=== PATIENT | male | born 1985 | race Caucasian/White ===

== ENCOUNTER → 2020-11-20 15:00 | Outpatient (BNVA) | payer MEDICAID, SELFPAY | PROVIDERS: Visit Provider Counselor Professional | DX: F25.0 Schizoaffective disorder, bipolar type (principal) | CPT/HCPCS: 90832 ==

== ENCOUNTER → 2020-11-29 13:50 | Outpatient (BNVA) | payer MEDICAID, SELFPAY | PROVIDERS: Visit Provider Counselor Professional | DX: F25.0 Schizoaffective disorder, bipolar type (principal) | CPT/HCPCS: 90832 ==

== ENCOUNTER → 2020-12-11 00:01 | Outpatient (BNVA) | payer MEDICAID, SELFPAY | PROVIDERS: Visit Provider Psychiatry & Neurology Psychiatry | DX: Z03.89 Encounter for observation for other suspected diseases and conditions ruled out (principal); F25.0 Schizoaffective disorder, bipolar type; F41.9 Anxiety disorder, unspecified; G25.89 Other specified extrapyramidal and movement disorders; T50.905A Adverse effect of unspecified drugs, medicaments and biological substances, initial encounter; Z79.899 Other long term (current) drug therapy | CPT/HCPCS: 80053; 80061; 83036; 84443 ==

== ENCOUNTER → 2020-12-13 13:28 | Outpatient (BNVA) | payer MEDICAID, SELFPAY | PROVIDERS: Visit Provider Counselor Professional | DX: F25.0 Schizoaffective disorder, bipolar type (principal) | CPT/HCPCS: 90832 ==

== ENCOUNTER → 2020-12-27 13:47 | Outpatient (BNVA) | payer MEDICAID, SELFPAY | PROVIDERS: Visit Provider Counselor Professional | DX: F25.0 Schizoaffective disorder, bipolar type (principal) | CPT/HCPCS: 90832 ==

== ENCOUNTER → 2021-01-13 10:48 | Outpatient (BNVA) | payer MEDICAID, SELFPAY | PROVIDERS: Visit Provider Counselor Professional | DX: F25.0 Schizoaffective disorder, bipolar type (principal) | CPT/HCPCS: 90832 ==

== ENCOUNTER → 2021-01-31 14:46 | Outpatient (BNVA) | payer MEDICAID, SELFPAY | PROVIDERS: PCP Family Medicine; Visit Provider Counselor Professional | DX: F25.0 Schizoaffective disorder, bipolar type (principal) | CPT/HCPCS: 90832 ==

== ENCOUNTER → 2021-02-20 14:43 | Outpatient (BNVA) | payer MEDICAID, SELFPAY | PROVIDERS: PCP Family Medicine; Visit Provider Counselor Professional | DX: F25.0 Schizoaffective disorder, bipolar type (principal) | CPT/HCPCS: 90834; 90832 ==

== ENCOUNTER → 2021-03-06 14:49 | Outpatient (BNVA) | payer MEDICAID, SELFPAY | PROVIDERS: PCP Family Medicine; Visit Provider Counselor Professional | DX: F25.0 Schizoaffective disorder, bipolar type (principal) | CPT/HCPCS: 90832 ==

== ENCOUNTER → 2021-03-28 14:54 | Outpatient (BNVA) | payer MEDICAID, SELFPAY | PROVIDERS: PCP Family Medicine; Visit Provider Counselor Professional | DX: F25.0 Schizoaffective disorder, bipolar type (principal) | CPT/HCPCS: 90832 ==

== ENCOUNTER → 2021-04-25 14:47 | Outpatient (BNVA) | payer MEDICAID, SELFPAY | PROVIDERS: PCP Family Medicine; Visit Provider Counselor Professional | DX: F25.0 Schizoaffective disorder, bipolar type (principal) | CPT/HCPCS: 90832 ==

== ENCOUNTER → 2021-05-22 12:47 | Outpatient (BNVA) | payer MEDICAID, SELFPAY | PROVIDERS: PCP Family Medicine; Visit Provider Counselor Professional | DX: F25.0 Schizoaffective disorder, bipolar type (principal) | CPT/HCPCS: 90832 ==

== ENCOUNTER → 2021-05-26 13:50 | Outpatient (BNVA) | payer MEDICAID, SELFPAY | PROVIDERS: PCP Family Medicine; Visit Provider Family Medicine | DX: K21.9 Gastro-esophageal reflux disease without esophagitis (principal); I10 Essential (primary) hypertension; R73.03 Prediabetes; Z68.34 Body mass index [BMI] 34.0-34.9, adult | CPT/HCPCS: 80048; 83036 ==

== ENCOUNTER → 2021-07-03 14:42 | Outpatient (BNVA) | payer MEDICAID, SELFPAY | PROVIDERS: PCP Family Medicine; Visit Provider Counselor Professional | DX: F25.0 Schizoaffective disorder, bipolar type (principal) | CPT/HCPCS: 90832 ==

== ENCOUNTER → 2021-08-07 13:46 | Outpatient (BNVA) | payer MEDICAID, SELFPAY | PROVIDERS: PCP Family Medicine; Visit Provider Counselor Professional | DX: F25.9 Schizoaffective disorder, unspecified (principal) | CPT/HCPCS: 90832 ==

== ENCOUNTER → 2021-08-21 15:33 | Outpatient (BNVA) | payer MEDICAID, SELFPAY | PROVIDERS: PCP Family Medicine; Visit Provider Counselor Professional | DX: F25.9 Schizoaffective disorder, unspecified (principal) | CPT/HCPCS: 90832 ==

== ENCOUNTER → 2021-10-23 15:09 | Outpatient (BNVA) | payer MEDICAID, OTHER, SELFPAY | PROVIDERS: PCP Family Medicine; Visit Provider Psychiatry & Neurology Neurology | DX: Z79.899 Other long term (current) drug therapy (principal) | CPT/HCPCS: 80061; 83036; 83721 ==

== ENCOUNTER → 2021-11-24 13:42 | Outpatient (BNVA) | payer MEDICAID, SELFPAY ==
[2021-10-30 16:12] VITALS: BP 112/71; BMI 24.8
== END ==
PROVIDERS: PCP Family Medicine; Visit Provider Family Medicine
DX: E11.9 Type 2 diabetes mellitus without complications (principal); I10 Essential (primary) hypertension; E87.1 Hypo-osmolality and hyponatremia; H53.8 Other visual disturbances
CPT/HCPCS: 80053; 83036; 85025

== ENCOUNTER → 2022-01-14 09:50 | Outpatient (BNVA) | payer MEDICAID, SELFPAY ==
[2021-10-30 16:12] VITALS: BP 112/71; BMI 24.8
== END ==
PROVIDERS: PCP Family Medicine; Visit Provider Nurse Practitioner Family
DX: M79.672 Pain in left foot (principal)
CPT/HCPCS: 73630

== ENCOUNTER → 2022-03-11 13:47 | Outpatient (BNVA) | payer MEDICAID, SELFPAY ==
[2021-10-30 16:12] VITALS: BP 112/71; BMI 24.8
== END ==
PROVIDERS: PCP Family Medicine; Visit Provider Family Medicine
DX: E11.9 Type 2 diabetes mellitus without complications (principal); I10 Essential (primary) hypertension; K21.9 Gastro-esophageal reflux disease without esophagitis; J30.2 Other seasonal allergic rhinitis; R74.8 Abnormal levels of other serum enzymes
CPT/HCPCS: 80053; 83036

== ENCOUNTER → 2022-07-06 16:21 | Outpatient (BNVA) | payer MEDICAID, SELFPAY ==
[2021-10-30 16:12] VITALS: BP 112/71; BMI 24.8
== END ==
PROVIDERS: PCP Family Medicine; Visit Provider Family Medicine
DX: E11.9 Type 2 diabetes mellitus without complications (principal); I10 Essential (primary) hypertension
CPT/HCPCS: 80053; 83036

== ENCOUNTER → 2022-07-08 09:43 | Outpatient (BNVA) | payer MEDICAID, SELFPAY ==
[2021-10-30 16:12] VITALS: BP 112/71; BMI 24.8
== END ==
PROVIDERS: PCP Family Medicine; Visit Provider Nurse Practitioner Family
DX: R43.0 Anosmia (principal); Z20.822 Contact with and (suspected) exposure to COVID-19
CPT/HCPCS: 87426

== ENCOUNTER → 2022-08-24 16:52 | Outpatient (BNVA) | payer MEDICAID, SELFPAY ==
[2021-10-30 16:12] VITALS: BP 112/71; BMI 24.8
== END ==
PROVIDERS: PCP Family Medicine; Visit Provider Nurse Practitioner Family
DX: K92.1 Melena (principal)
CPT/HCPCS: 85018

== ENCOUNTER → 2022-12-16 16:33 | Outpatient (BNVA) | payer MEDICAID, SELFPAY ==
[2021-10-30 16:12] VITALS: BP 112/71; BMI 24.8
== END ==
PROVIDERS: PCP Family Medicine; Visit Provider Psychiatry & Neurology Psychiatry
DX: F41.9 Anxiety disorder, unspecified (principal); F20.9 Schizophrenia, unspecified
CPT/HCPCS: 80061; 83036

== ENCOUNTER → 2023-03-30 11:11 | Outpatient (BNVA) | payer MEDICAID, SELFPAY ==
[2022-12-24 16:38] VITALS: BP 130/84; BMI 30.8
== END ==
PROVIDERS: PCP Family Medicine; Visit Provider Family Medicine
DX: E11.9 Type 2 diabetes mellitus without complications (principal); J30.2 Other seasonal allergic rhinitis; I10 Essential (primary) hypertension; K21.9 Gastro-esophageal reflux disease without esophagitis; G89.29 Other chronic pain; R74.8 Abnormal levels of other serum enzymes; K27.9 Peptic ulcer, site unspecified, unspecified as acute or chronic, without hemorrhage or perforation; E78.2 Mixed hyperlipidemia; G89.4 Chronic pain syndrome
CPT/HCPCS: 80053; 83036

== ENCOUNTER 2024-01-25 18:47 | Emergency (ER) | payer OTHER, SELFPAY ==
[2022-12-24 16:38] VITALS: BP 130/84; BMI 30.8
[2024-01-25 19:46] VITALS: BP 119/76; PULSE 104; RESP 17; TEMP 36.7; O2SAT 96; BMI 27.3
--- NOTE | 2024-01-25 20:02 | ECG_ITS ---
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 Measurements Intervals [place] Rate: 96 P: 56 DC: 170 QRS: 49 QRSD: 90 T: 24 QT: 347 QTc: 441 Interpretive Statements SINUS RHYTHM POSSIBLE LEFT ATRIAL ENLARGEMENT [-0.1mV P-WAVE IN V1/V2] No previous ECG available for comparison Electronically Signed On 01-27-2024 21:16:09 TOLL BRIDGE ATTENDANT by Holger Crump M.D. [email or web address]
--- NOTE | 2024-01-25 20:09 | ED.C_ITS ---
HPI - Psych 2 General: Chief Complaint: Psychiatric Symptoms Stated Complaint: just wants to talk to a nurse about whats going on Time Seen by Provider: 01/25/24 19:47 Source: patient Mode of arrival: ambulatory Limitations: no limitations History of Present Illness: 38-year-old male states that he has a hi story depression states he has been having increased depression and feeling of hopelessness states he has not been taking his meds last 2 weeks and is now having suicidal thoughts he states he has a plan to kill himself by hanging himself and wants to get help. Associated symptoms: Reports depression and suicidal ideation Related Data Previous Rx's Medication Instructions Recorded blood-glucose meter #1 ea 10/28/21 ibuprofen 600 mg tablet 600 mg PO Q8H PRN pain #60 tabs 11/21/22 metoprolol succinate 25 mg 25 mg PO DAILY 90 days #90 tabs 03/30/23 tablet,extended release 24 hr pen needle, diabetic 32 gauge x #100 ea 03/30/23 (TechLITE Pen Needle) haloperidol 5 mg tablet 5 mg PO BID 30 days #60 tabs 04/20/23 hydroxyzine HCl 50 mg tablet 50 mg PO TID PRN anxiety or sleep 04/20/23 30 days #90 tabs mirtazapine 30 mg tablet 30 mg PO .qhs 30 days #30 tabs 04/20/23 fluoxetine 20 mg capsule 20 mg PO DAILY 30 days #30 caps 05/03/23 fluoxetine 40 mg capsule 40 mg PO DAILY 30 days #30 caps 05/03/23 blood sugar diagnostic (Blood #50 ea 06/08/23 Glucose Test strips) lancets 30 gauge (OneTouch Delica #100 ea 07/13/23 Plus Lancet) buspirone 30 mg tablet 30 mg PO BID anxiety 30 days #60 08/10/23 tabs atorvastatin 20 mg tablet (Lipitor) 20 mg PO DAILY cholesterol #90 tabs 09/22/23 blood sugar diagnostic #50 ea 09/22/23 cetirizine 10 mg tablet (All Day 10 mg PO DAILY 90 days #90 tabs 09/22/23 Allergy (cetirizine)) glipizide 10 mg tablet, extended 10 mg PO BID 90 days #180 tabs 09/22/23 release 24 hr lisinopril 10 mg tablet 10 mg PO DAILY diabetic, renal 09/22/23 function #90 tabs omeprazole 40 mg capsule,delayed 40 mg PO BID 90 days #180 caps 09/22/23 release tizanidine 2 mg tablet 2 mg PO TID PRN muscle spasticity 09/22/23 #60 tabs Allergies Allergy/AdvReac Type Severity Reaction Status Date / Time No Known Allergies Allergy Verified 01/25/24 19:52 Review of Systems 2 Const: Denies: fever(s), chills, body aches or change in appetite ENMT: Denies: throat pain or dental pain Card: Denies: chest pain Resp: Denies: dyspnea GI: Denies: abdominal pain, nausea, vomiting or diarrhea Musc: Denies: neck pain or back pain Skin/Breast: Denies: rash Neuro: Denies: headache(s) Psych: Reports: depression and suicidal ideation PFSH ED 2 PFSH: Medical History Hyperlipidemia Smoking Diabetes Metformin discontinued due to diarrhea. Psychiatric care Released from [facility] Substance abuse Intellectual disability Anxiety Psychiatric care Family History Other Diabetes Social History (Updated 09/23/23 @ 12:11 by Kimberly Garcia LPN) Smoking and tobacco/nicotine status: current every day tobacco/nicotine user cigarettes Packs smoked per day: 1 Years cigarettes smoked: 18 and smokeless tobacco Smokeless tobacco user: chewing tobacco Smokeless tobacco details: a can last about a week Quit status (tobacco/nicotine): considering quitting Second hand smoke exposure: Yes Alcohol intake: never Substance/Drug Use: never Adopted: No Caregiver/support person: Yes Lives independently: Yes Household members: family and none Housing: Apartment Marital status: Legally Number of children: 0 Number of grandchildren: 0 Highest education level completed: 9th Grade Current occupational status: unemployed Pets and animals: No Leisure activites: sports, exercise, music, hunting, fishing and other Leisure activities details: helps step dad around the house and watch movies Sexually active: No Do you think of yourself as: Straight/Heterosexual Current gender identity: Male Tiffanie/Yarsani: Pentecostalism Special tiffanie needs: No Agree to transfusion: Yes Physical Exam 2 Const: COMMON NORMALS: no acute distress, patient oriented x3 and healthy appearing HENMT: COMMON NORMALS: normocephalic and atraumatic HEAD & SCALP: n ormocephalic and atraumatic Neck/C-Spine: COMMON NORMALS: full ROM and supple Chest: COMMONS NORMALS: normal inspection of the chest Resp: COMMON NORMALS: normal respiratory effort Cardio: COMMON NORMALS: regular rate and regular rhythm RATE: regular rate RHYTHM: regular rhythm Extremity: COMMON NORMALS: normal to inspection and full ROM Neuro: COMMON NORMALS: patient oriented x3, moves all extremities and no focal motor deficits Psych: COMMON NORMALS: mental status grossly normal, Normal thought process present and cooperative MOOD & AFFECT: Yes depressed mood THOUGHT PROCESS: Normal thought process present THOUGHT CONTENT: Yes Suicidality present Skin: COMMON NORMALS: no rashes or lesions noted and no wounds GENERAL SKIN EXAM: no rashes or lesions noted Course 2 Vital Signs: Vital signs: Vital Signs Temperature 98.0 F 01/25/24 19:46 Pulse Rate 79 01/26/24 04:00 Respiratory Rate 15 01/26/24 04:00 Blood Pressure 118/72 01/26/24 04:00 Pulse Oximetry 96 01/26/24 04:00 Oxygen Delivery Me thod Room Air 01/25/24 19:46 MDM - Psych Medical Decision Making Patient presents here with suicidal ideation he is placed on a 96-hour hold he is medically cleared will transfer due to bed availability. Medical Records I reviewed the patient's medical records. Lab Data I reviewed the patient's lab results. 01/25/24 20:37 01/25/24 20:37 Laboratory Results WBC 9.86 10^3/uL (3.29-11.43) 01/25/24 20:37 RBC 4.41 10^6/uL (3.85-5.65) 01/25/24 20:37 Hgb 13.10 g/dL (11.27-16.99) 01/25/24 20:37 Hct 40.1 % (37-53) 01/25/24 20:37 MCV 90.9 fl (82-101) 01/25/24 20:37 MCH 29.7 pg (27-33) 01/25/24 20:37 MCHC 32.7 g/dL (30-55) 01/25/24 20:37 RDW 13.4 % (12.1-15.1) 01/25/24 20:37 Plt Count 227 10^3/cmm (157-399) 01/25/24 20:37 MPV 10.0 fL (7.4-10.4) 01/25/24 20:37 Neut % (Auto) 57.3 % 01/25/24 20:37 Lymph % (Auto) 31.3 % 01/25/24 20:37 [place] % (Auto) 8.7 % 01/25/24 20:37 Eos % (Auto) 1.8 % 01/25/24 20:37 Baso % (Auto) 0.5 % 01/25/24 20:37 Neut # (Auto) 5.64 10^3/uL (1.8-7.7) 01/25/24 20:37 Lymph # (Auto) 3.1 10^3/uL (0.8-4.8) 01/25/24 20:37 [place] # (Auto) 0.9 10^3/uL (0.2-0.9) 01/25/24 20:37 Eos # (Auto) 0.2 10^3/uL (0.0-0.8) 01/25/24 20:37 Baso # (Auto) 0.1 10^3/uL (0.0-0.1) 01/25/24 20:37 Nucleated RBC % (auto) 0 % 01/25/24 20:37 Nucleated RBCs # 0.0 /100WBC 01/25/24 20:37 Sodium 135 mmol/L (136-145) L 01/25/24 20:37 Potassium 3.9 mmol/L (3.5-5.1) 01/25/24 20:37 Chloride 99 mmol/L (98-107) 01/25/24 20:37 Carbon Dioxide 26 mmol/L (22-29) 01/25/24 20:37 Anion Gap 13.9 (5-19) 01/25/24 20:37 BUN 12 mg/dL (6-20) 01/25/24 20:37 Creatinine 0.8 mg/dL (0.7-1.2) 01/25/24 20:37 GFR Calculation 108.8 mL/min (90-130) 01/25/24 20:37 Glucose 136 mg/dL (65-115) H 01/25/24 20:37 POC Glucose 162 mg/dL (70-110) H 01/25/24 21:54 Calculated Osmolality 282 mOsm/kg (285-295) L 01/25/24 20:37 Calcium 8.7 mg/dL (8.5-10.5) 01/25/24 20:37 Total Bilirubin 0.3 mg/dL (0.15-1.2) 01/25/24 20:37 AST 24 U/L (0-40) 01/25/24 20:37 ALT 36 U/L (0-41) 01/25/24 20:37 Alkaline Phosphatase 98 U/L (40-130) 01/25/24 20:37 Total Protein 6.8 g/dL (6.6-8.7) 01/25/24 20:37 Albumin 4.2 g/dL (3.5-5.2) 01/25/24 20:37 Globulin 2.6 g/dL (1.3-4.6) 01/25/24 20:37 TSH 0.82 uIU/mL (0.27-4.20) 01/25/24 20:37 Urine Color Dark yellow (Yellow) A 01/26/24 05:16 Urine Appearance Clear (CLEAR) 01/26/24 05:16 Urine pH 5.0 (5-7) 01/26/24 05:16 Ur Specific [place] 1.014 (1.005-1.030) 01/26/24 05:16 Urine Protein Negative (Negative) 01/26/24 05:16 Urine Glucose (UA) Negative (Normal) 01/26/24 05:16 Urine Ketones Negative (Negative) 01/26/24 05:16 Urine Blood Negative (Negative) 01/26/24 05:16 Urine Nitrate Negative (Negative) 01/26/24 05:16 Urine Bilirubin Negative (Negative) 01/26/24 05:16 Urine Urobilinogen 1.0 mg/dL (Negative) 01/26/24 05:16 Ur Leukocyte Esterase Negative (Negative) 01/26/24 05:16 Urine RBC 0-2 /hpf (0-2) 01/26/24 05:16 Urine WBC 0-5 /hpf (0-5) 01/26/24 05:16 Ur Squamous Epith Cells 0-5 /hpf (0-5) 01/26/24 05:16 Amorphous Sediment Not Reportable 01/26/24 05:16 Urine Bacteria None seen /hpf (NONE) 01/26/24 05:16 Hyaline Casts 0-4 /lpf H 01/26/24 05:16 Salicylates < 0.3 mg/dL (3-10) L 01/25/24 20:37 Urine Opiates Screen Negative ng/mL (Negative) 01/25/24 20:25 Acetaminophen < 5.0 ug/mL (10-30) L 01/25/24 20:37 Ur Barbiturates Screen Negative ng/mL (Negative) 01/25/24 20:25 Ur Phencyclidine Scrn Negative ng/mL (Negative) 01/25/24 20:25 Ur Amphetamines Screen Negative ng/mL (Negative) 01/25/24 20:25 U Benzodiazepines Scrn Negative ng/mL (Negative) 01/25/24 20:25 Urine Cocaine Screen Negative ng/mL (Negative) 01/25/24 20:25 U Marijuana (THC) Screen Positive ng/mL (Negative) H 01/25/24 20:25 Ethyl Alcohol < 10 mg/dL (0-10) 01/25/24 20:37 Coronavirus (PCR) Negative (Negative) 01/25/24 20:25 Influenza A (PCR) Negative (Negative) 01/25/24 20:25 Influenza Type B (PCR) Negative (Negative) 01/25/24 20:25 RSV (PCR) Negative (Negative) 01/25/24 20:25 No radiology studies performed this visit EKG Data EKG 1: I personally reviewed and interpreted this EKG as follows: EKG interpretation date: 01/25/24 EKG interpretation time: 20:02 Interpretation: nsr hr [address] elevation qrs 90 qtc 401 Discharge Plan Discharge Patient Disposition: Xfer Psychiatric Hosp Clinical Impression: Suicidal ideation Condition: Stable Referrals: Kathy Clemons MD [Primary Care Provider] - Coding Level of Care Code ED Glass Curvature Gauger for Chg Qiana
[2024-01-25 20:41] LABS: Amphetamines Screen Urine Negative (Negative); Barbiturates Screen Urine Negative (Negative); Benzodiazepines Screen Urine Negative (Negative); Cocaine Screen Urine Negative (Negative); Opiate Screen Urine Negative (Negative); PCP Screen Urine Negative (Negative); THC Screen Urine Positive (Negative)
[2024-01-25 20:44] LABS: Basophils # 0.1 10^3/uL (0.0-0.1); Basophils % 0.5 %; Eosinophils # 0.2 10^3/uL (0.0-0.8); Eosinophils % 1.8 %; Hematocrit 40.1 % (37-53); Lymphocytes # 3.1 10^3/uL (0.8-4.8); Lymphocytes % 31.3 %; Mean Corpuscular HGB Conc 32.7 g/dL (30-55); Mean Corpuscular Hemoglobin 29.7 pg (27-33); Mean Corpuscular Volume 90.9 fl (82-101); Monocytes # 0.9 10^3/uL (0.2-0.9); Monocytes % 8.7 %; Neutrophils # 5.64 10^3/uL (1.8-7.7); Neutrophils % 57.3 %; Nucleated Red Blood Cells % 0 %; Platelet Count 227 10^3/cmm (157-399); Red Blood Count 4.41 10^6/uL (3.85-5.65); Red Cell Distribution Width 13.4 % (12.1-15.1); White Blood Count 9.86 10^3/uL (3.29-11.43)
[2024-01-25 21:01] LABS: Alanine Aminotransferase 36 U/L (0-41); Albumin Level 4.2 g/dL (3.5-5.2); Alkaline Phosphatase 98 U/L (40-130); Anion Gap 13.9 (5-19); Aspartate Amino Transferase 24 U/L (0-40); Blood Urea Nitrogen 12 mg/dL (6-20); Calcium 8.7 mg/dL (8.5-10.5); Carbon Dioxide 26 mmol/L (22-29); Chloride 99 mmol/L (98-107); Creatinine Clr Calc Pharmacy 119.1932; Globulin 2.6 g/dL (1.3-4.6); Glomerular Filtration Rate 108.8 mL/min (90-130); Glucose 136 mg/dL (65-115); Osmolality Calculated 282 mOsm/kg (285-295); Potassium 3.9 mmol/L (3.5-5.1); Sodium 135 mmol/L (136-145); Total Bilirubin 0.3 mg/dL (0.15-1.2); Total Protein 6.8 g/dL (6.6-8.7)
[2024-01-25 21:02] LABS: Acetaminophen < 5.0 ug/mL (10-30); Alcohol Level < 10 mg/dL (0-10); Salicylate < 0.3 mg/dL (3-10)
--- NOTE | 2024-01-25 21:03 | PC.NURSE ---
[facility] Pt served with copy of [facility] by this RN and security, pt requesting to be transferred to a [facility] facility I want special education curriculum specialist placement . Physician notified. Pt also stated that he is diabetic and has not addressed with blood sugar in months due to lack of insurance, physician notified of that also.
[2024-01-25 21:08] LABS: Covid PCR NEGATIVE (Negative); Influenza A NEGATIVE (Negative); Influenza B NEGATIVE (Negative); Respiratory Syncytial Virus Ce NEGATIVE (Negative)
[2024-01-25 21:12] LABS: Thyroid Stimulating Hormone 0.82 uIU/mL (0.27-4.20)
[2024-01-25 21:56] LABS: Glucose Point of Care 162 mg/dL (70-110)
--- NOTE | 2024-01-25 22:10 | PC.NURSE ---
pt requested to speak to his mother. approved phone call. Pt was able to speak to mom on charge nurse phone with nurse present.
[2024-01-26] VITALS: BP 124/79; PULSE 98; RESP 18; O2SAT 97
[2024-01-26 04:00] VITALS: BP 118/72; PULSE 79; RESP 15; O2SAT 96
[2024-01-26 05:22] LABS: Bilirubin Urine Negative (Negative); Blood Urine Negative (Negative); Glucose Urine UA Negative (Normal); Ketones Urine Negative (Negative); Leukocyte Esterase Urine Negative (Negative); Nitrate Urine Negative (Negative); Protein Urine Negative (Negative); Specific Gravity, Urine 1.014 (1.005-1.030); Urine Appearance Clear (CLEAR)
--- NOTE | 2024-01-26 05:26 | PC.NURSE ---
Nurse called [facility] to check on bed availability. [place] stated they did and to fax over pt information. fax sent at 05:25.
[2024-01-26 05:27] LABS: Add Urine Microscopic? YES; Bacteria Urine None Seen /hpf; Hyaline Casts Urine 0-4 /lpf; RBC Urine 0-2 /hpf (0-2); Squamous Epithelial Cell Urine 0-5 /hpf (0-5); WBC Urine 0-5 /hpf (0-5)
[2024-01-26 05:42] LABS: Urine Color Dark Yellow (Yellow)
--- NOTE | 2024-01-26 06:32 | DCPLANNER ---
THE CHART HAS BEEN FAXED TO THE FOLLOWING PLACES. [facility], [facility]
--- NOTE | 2024-01-26 09:19 | PC.PHAR ---
patient uses anni lemon as doctor in [facility], they are to fax me the list
--- NOTE | 2024-01-26 14:00 | PC.NURSE ---
report given to EMS @1400, no further questions.
[2024-01-26 14:10] VITALS: BP 119/79; PULSE 77; O2SAT 97
== END 2024-01-26 14:14 ==
PROVIDERS: Emergency Medicine; Emergency Provider Emergency Medicine; PCP Family Medicine
DX: R45.851 Suicidal ideations (principal); Z11.52 Encounter for screening for COVID-19; F17.220 Nicotine dependence, chewing tobacco, uncomplicated; E11.9 Type 2 diabetes mellitus without complications; E78.5 Hyperlipidemia, unspecified
CPT/HCPCS: 0241U; 36415; 36416; 80053; 80306; 80307; 81001; 82962; 84443; 85025; 93005; 99285

== ENCOUNTER 2024-02-16 19:40 | Emergency (ER) | payer OTHER, SELFPAY ==
[2022-12-24 16:38] VITALS: BP 130/84; BMI 30.8
[2024-02-16 19:46] VITALS: BP 122/77; PULSE 110; RESP 20; TEMP 36.6; O2SAT 97; BMI 27.9
--- NOTE | 2024-02-16 19:55 | ED.C_ITS ---
HPI - Psych 2 General: Chief Complaint: Psychiatric Symptoms Stated Complaint: Meds not right/MHE Time Seen by Provider: 02/16/24 19:53 History of Present Illness: 38-year-old man with history of depressi on presents emergency room with suicidal thoughts. He says he thinks he needs to have his medications adjusted because recently he has developed suicidal ideations. No specific plan at this point. Related Data Previous Rx's Medication Instructions Recorded blood-glucose meter #1 ea 10/28/21 ibuprofen 600 mg tablet 600 mg PO Q8H PRN pain #60 tabs 11/21/22 metoprolol succinate 25 mg 25 mg PO DAILY 90 days #90 tabs 03/30/23 tablet,extended release 24 hr pen needle, diabetic 32 gauge x #100 ea 03/30/23 (TechLITE Pen Needle) haloperidol 5 mg tablet 5 mg PO BID 30 days #60 tabs 04/20/23 hydroxyzine HCl 50 mg tablet 50 mg PO TID PRN anxiety or sleep 04/20/23 30 days #90 tabs mirtazapine 30 mg tablet 30 mg PO .qhs 30 days #30 tabs 04/20/23 fluoxetine 20 mg capsule 20 mg PO DAILY 30 days #30 caps 05/03/23 fluoxetine 40 mg capsule 40 mg PO DAILY 30 days #30 caps 05/03/23 blood sugar diagnostic (Blood #50 ea 06/08/23 Glucose Test strips) lancets 30 gauge (OneTouch Delica #100 ea 07/13/23 Plus Lancet) buspirone 30 mg tablet 30 mg PO BID anxiety 30 days #60 08/10/23 tabs atorvastatin 20 mg tablet (Lipitor) 20 mg PO DAILY cholesterol #90 tabs 09/22/23 blood sugar diagnostic #50 ea 09/22/23 cetirizine 10 mg tablet (All Day 10 mg PO DAILY 90 days #90 tabs 09/22/23 Allergy (cetirizine)) glipizide 10 mg tablet, extended 10 mg PO BID 90 days #180 tabs 09/22/23 release 24 hr lisinopril 10 mg tablet 10 mg PO DAILY diabetic, renal 09/22/23 function #90 tabs omeprazole 40 mg capsule,delayed 40 mg PO BID 90 days #180 caps 09/22/23 release tizanidine 2 mg tablet 2 mg PO TID PRN muscle spasticity 09/22/23 #60 tabs Allergies Allergy/AdvReac Type Severity Reaction Status Date / Time No Known Allergies Allergy Verified 01/25/24 19:52 Review of Systems 2 Narrative: Constitutional symptoms: Negative except as documented in HPI. Skin symptoms: Negative except as documented in HPI. Eye symptoms: Negative except as documented in HPI. ENMT symptoms: Negative except as documented in HPI. Respiratory symptoms: Negative except as documented in HPI. Cardiovascular symptoms: Negative except as documented in HPI. Gastrointestinal symptoms: Negative except as documented in HPI. Genitourinary symptoms: Negative except as documented in HPI. Musculoskeletal symptoms: Negative except as documented in HPI. Neurologic symptoms: Negative except as documented in HPI. Psychiatric symptoms: Negative except as documented in HPI. Endocrine symptoms: Negative except as documented in HPI. PFSH ED 2 PFSH: Medical History Hyperlipidemia Smoking Diabetes Metformin discontinued due to diarrhea. Psychiatric care Released from longterm Substance abuse Intellectual disability Anxiety Psychiatric care Family History Other Diabetes Social History (Updated 09/23/23 @ 12:11 by Kimberly Garcia LPN) Smoking and tobacco/nicotine status: current every day tobacco/nicotine user cigarettes Packs smoked per day: 1 Years cigarettes smoked: 18 and smokeless tobacco Smokeless tobacco user: chewing tobacco Smokeless tobacco details: a can last about a week Quit status (tobacco/nicotine): considering quitting Second hand smoke exposure: Yes Alcohol intake: never Substance/Drug Use: never Adopted: No Caregiver/support person: Yes Lives independently: Yes Household members: family and none Housing: Apartment Marital status: Legally Number of children: 0 Number of grandchildren: 0 Highest education level completed: 9th Grade Current occupational status: unemployed Pets and animals: No Leisure activites: sports, exercise, music, hunting, fishing and other Leisure activities details: helps step dad around the house and watch movies Sexually active: No Do you think of yourself as: Straight/Heterosexual Current gender identity: Male Tiffanie/Tenriism: Gnosticism Special tiffanie needs: No Agree to transfusion: Yes Physical Exam 2 Narrative: EXAM NARRATIVE: General: Alert. no acute distress Skin: Warm, dry Head: Normocephalic, atraumatic. Neck: Supple, trachea midline. Eye: Extraocular movements are intact. Ears, nose, mouth and throat: Oral mucosa moist. Cardiovascular: Regular rate and rhythm, Normal peripheral perfusion. Respiratory: Lungs are clear to auscultation, respirations are non-labored, breath sounds are equal, Symmetrical chest wall expansion. Gastrointestinal: Soft, Nontender, Non distended, Normal bowel sounds. Musculoskeletal: Normal ROM, no deformity. Neurological: Alert and oriented to person, place, time, and situation, No focal neurological deficit observed. Psychiatric: Cooperative, depressed, expresses suicidal ideation. Course 2 Vital Signs: Vital signs: Vital Signs Temperature 97.9 F 02/16/24 19:46 Pulse Rate 110 H 02/16/24 19:46 Respiratory Rate 20 H 02/16/24 19:46 Blood Pressure 122/77 02/16/24 19:46 Pulse Oximetry 97 02/16/24 19:46 Oxygen Delivery Me thod Room Air 02/16/24 19:46 MDM - Psych Medical Decision Making Differential diagnosis: Patient with reported depression and suicidal ideation. concerns for infection, alcohol intoxication, cardiac issues or other medical problems prior to psychiatric admission. Workup: labwork, ekg ordered to evaluate the pathologies and to clear the patient medically prior to psychiatric admission EKG: Time 2046. Rate 61. Normal sinus rhythm, No ST-T changes, no ectopy, normal MD & QRS intervals, This was reviewed and interpreted by myself the ER physician at 2049. Chest x-ray: No acute process. No infiltrate. No pneumothorax. This was reviewed and interpreted by myself the emergency room physician. I also reviewed the radiology report. Lab Review: Laboratory results were reviewed and interpreted by myself the emergency room physician. - Medically cleared. - EKG shows no ischemic changes. - Blood alcohol level is negative, -Tylenol and salicylate levels are negative. - Drug screen is positive for opiates, amphetamines, benzodiazepines and marijuana - No signs of infection, urinalysis clear and white count is not elevated - No anemia. - BUN and creatinine are within normal limits. ?Flu COVID and RSV are negative Assessment and plan: Depression Suicidal ideation -Transfer to neuropsychiatric unit for continued evaluation and treatment as the psychiatric facility here is at capacity. - All lab work was reviewed and interpreted personally by myself, the ER physician - Evaluation and treatment of this problem were appropriate in the emergency setting Lab Data 02/16/24 20:20 02/16/24 20:20 Radiology Impressions Chest X-Ray 02/16/24 22:07 IMPRESSION: No acute cardiopulmonary process. Laboratory Results WBC 13.54 10^3/uL (3.29-11.43) H 02/16/24 20:20 RBC 4.69 10^6/uL (3.85-5.65) 02/16/24 20:20 Hgb 14.10 g/dL (11.27-16.99) 02/16/24 20:20 Hct 43.8 % (37-53) 02/16/24 20:20 MCV 93.4 fl (82-101) 02/16/24 20:20 MCH 30.1 pg (27-33) 02/16/24 20:20 MCHC 32.2 g/dL (30-55) 02/16/24 20:20 RDW 13.2 % (12.1-15.1) 02/16/24 20:20 Plt Count 257 10^3/cmm (157-399) 02/16/24 20:20 MPV 9.9 fL (7.4-10.4) 02/16/24 20:20 Neut % (Auto) 66.0 % 02/16/24 20:20 Lymph % (Auto) 24.7 % 02/16/24 20:20 [place] % (Auto) 7.6 % 02/16/24 20:20 Eos % (Auto) 0.9 % 02/16/24 20:20 Baso % (Auto) 0.4 % 02/16/24 20:20 Neut # (Auto) 8.95 10^3/uL (1.8-7.7) H 02/16/24 20:20 Lymph # (Auto) 3.3 10^3/uL (0.8-4.8) 02/16/24 20:20 [place] # (Auto) 1.0 10^3/uL (0.2-0.9) H 02/16/24 20:20 Eos # (Auto) 0.1 10^3/uL (0.0-0.8) 02/16/24 20:20 Baso # (Auto) 0.1 10^3/uL (0.0-0.1) 02/16/24 20:20 Nucleated RBC % (auto) 0 % 02/16/24 20:20 Nucleated RBCs # 0.0 /100WBC 02/16/24 20:20 Sodium 138 mmol/L (136-145) 02/16/24 20:20 Potassium 4.1 mmol/L (3.5-5.1) 02/16/24 20:20 Chloride 102 mmol/L (98-107) 02/16/24 20:20 Carbon Dioxide 23 mmol/L (22-29) 02/16/24 20:20 Anion Gap 17.1 (5-19) 02/16/24 20:20 BUN 8 mg/dL (6-20) 02/16/24 20:20 Creatinine 1.3 mg/dL (0.7-1.2) H 02/16/24 20:20 GFR Calculation 62.1 mL/min (90-130) L 02/16/24 20:20 Glucose 102 mg/dL (65-115) 02/16/24 20:20 POC Glucose 103 mg/dL (70-110) 02/16/24 20:23 Calculated Osmolality 285 mOsm/kg (285-295) 02/16/24 20:20 Calcium 9.8 mg/dL (8.5-10.5) 02/16/24 20:20 Total Bilirubin 0.3 mg/dL (0.15-1.2) 02/16/24 20:20 AST 22 U/L (0-40) 02/16/24 20:20 ALT 32 U/L (0-41) 02/16/24 20:20 Alkaline Phosphatase 92 U/L (40-130) 02/16/24 20:20 Total Protein 7.6 g/dL (6.6-8.7) 02/16/24 20:20 Albumin 4.6 g/dL (3.5-5.2) 02/16/24 20:20 Globulin 3.0 g/dL (1.3-4.6) 02/16/24 20:20 TSH 1.51 uIU/mL (0.27-4.20) 02/16/24 20:20 Urine Color Yellow (Yellow) 02/16/24 20:07 Urine Appearance Clear (CLEAR) 02/16/24 20:07 Urine pH 6.0 (5-7) 02/16/24 20:07 Ur Specific [place] 1.018 (1.005-1.030) 02/16/24 20:07 Urine Protein Negative (Negative) 02/16/24 20:07 Urine Glucose (UA) Negative (Normal) 02/16/24 20:07 Urine Ketones Trace (Negative) 02/16/24 20:07 Urine Blood Negative (Negative) 02/16/24 20:07 Urine Nitrate Negative (Negative) 02/16/24 20:07 Urine Bilirubin Negative (Negative) 02/16/24 20:07 Urine Urobilinogen 1.0 mg/dL (Negative) 02/16/24 20:07 Ur Leukocyte Esterase Negative (Negative) 02/16/24 20:07 Urine RBC 0-2 /hpf (0-2) 02/16/24 20:07 Urine WBC 0-5 /hpf (0-5) 02/16/24 20:07 Ur Squamous Epith Cells 0-5 /hpf (0-5) 02/16/24 20:07 Amorphous Sediment Not Reportable 02/16/24 20:07 Urine Bacteria None seen /hpf (NONE) 02/16/24 20:07 Hyaline Casts 1.65 /lpf 02/16/24 20:07 Salicylates < 0.3 mg/dL (3-10) L 02/16/24 20:20 Urine Opiates Screen Positive ng/mL (Negative) H 02/16/24 20:07 Acetaminophen < 5.0 ug/mL (10-30) L 02/16/24 20:20 Ur Barbiturates Screen Negative ng/mL (Negative) 02/16/24 20:07 Ur Phencyclidine Scrn Negative ng/mL (Negative) 02/16/24 20:07 Ur Amphetamines Screen Positive ng/mL (Negative) H 02/16/24 20:07 U Benzodiazepines Scrn Positive ng/mL (Negative) H 02/16/24 20:07 Urine Cocaine Screen Negative ng/mL (Negative) 02/16/24 20:07 U Marijuana (THC) Screen Positive ng/mL (Negative) H 02/16/24 20:07 Ethyl Alcohol < 10 mg/dL (0-10) 02/16/24 20:20 Coronavirus (PCR) Negative (Negative) 02/16/24 22:33 Influenza A (PCR) Negative (Negative) 02/16/24 22:33 Influenza Type B (PCR) Negative (Negative) 02/16/24 22:33 RSV (PCR) Negative (Negative) 02/16/24 22:33 All radiology interpretation(s) finalized by discharge Discharge Plan Discharge Patient Disposition: Xfer Psychiatric Hosp Clinical Impression: Suicidal ideation Condition: Stable Referrals: Kathy Clemons MD [Primary Care Provider] - Coding Level of Care Code ED Shower Screen Installer for Natalie Kiran
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
[2024-02-16 20:23] LABS: Bacteria Urine None Seen /hpf; Hyaline Casts Urine 1.65 /lpf; RBC Urine 0-2 /hpf (0-2); Squamous Epithelial Cell Urine 0-5 /hpf (0-5); WBC Urine 0-5 /hpf (0-5)
[2024-02-16 20:27] LABS: Basophils # 0.1 10^3/uL (0.0-0.1); Basophils % 0.4 %; Eosinophils # 0.1 10^3/uL (0.0-0.8); Eosinophils % 0.9 %; Hematocrit 43.8 % (37-53); Lymphocytes # 3.3 10^3/uL (0.8-4.8); Lymphocytes % 24.7 %; Mean Corpuscular HGB Conc 32.2 g/dL (30-55); Mean Corpuscular Hemoglobin 30.1 pg (27-33); Mean Corpuscular Volume 93.4 fl (82-101); Mean Platelet Volume 9.9 fL (7.4-10.4); Monocytes % 7.6 %; Neutrophils # 8.95 10^3/uL (1.8-7.7); Nucleated Red Blood Cells % 0 %; Platelet Count 257 10^3/cmm (157-399); Red Blood Count 4.69 10^6/uL (3.85-5.65); Red Cell Distribution Width 13.2 % (12.1-15.1); White Blood Count 13.54 10^3/uL (3.29-11.43)
[2024-02-16 20:28] LABS: Amphetamines Screen Urine Positive (Negative); Barbiturates Screen Urine Negative (Negative); Benzodiazepines Screen Urine Positive (Negative); Cocaine Screen Urine Negative (Negative); Opiate Screen Urine Positive (Negative); PCP Screen Urine Negative (Negative); THC Screen Urine Positive (Negative)
[2024-02-16 20:28] LABS: Glucose Point of Care 103 mg/dL (70-110)
[2024-02-16 20:36] LABS: Bilirubin Urine Negative (Negative); Blood Urine Negative (Negative); Glucose Urine UA Negative (Normal); Ketones Urine Trace (Negative); Leukocyte Esterase Urine Negative (Negative); Nitrate Urine Negative (Negative); Protein Urine Negative (Negative); Specific Gravity, Urine 1.018 (1.005-1.030); Urine Appearance Clear (CLEAR); Urine Color Yellow (Yellow)
--- NOTE | 2024-02-16 20:47 | ECG_ITS ---
[facility] Date: 2024-02[facility]16 Pat Name: Hua Spain Department: Room: Gender: Male Candle Cutter: : 1985 Requested By: Gianna Coto Order Number: [id number] Yovani MD: Jatinder Le M.D. Measurements Intervals [place] Rate: 61 P: 27 MO: 163 QRS: 53 QRSD: 102 T: 15 QT: 397 QTc: 402 Interpretive Statements SINUS RHYTHM NONSPECIFIC T-WAVE ABNORMALITY Compared to ECG 01/25/2024 20:02:23 T-wave abnormality now present Electronically Signed On 02-17-2024 14:43:30 ENGINEERING DRAWINGS CHECKER by Jatinder Le M.D. [id number]
[2024-02-16 20:55] LABS: Alanine Aminotransferase 32 U/L (0-41); Albumin Level 4.6 g/dL (3.5-5.2); Alkaline Phosphatase 92 U/L (40-130); Aspartate Amino Transferase 22 U/L (0-40); Blood Urea Nitrogen 8 mg/dL (6-20); Calcium 9.8 mg/dL (8.5-10.5); Carbon Dioxide 23 mmol/L (22-29); Chloride 102 mmol/L (98-107); Creatinine Clr Calc Pharmacy 74.1486; Glomerular Filtration Rate 62.1 mL/min (90-130); Glucose 102 mg/dL (65-115); Osmolality Calculated 285 mOsm/kg (285-295); Sodium 138 mmol/L (136-145); Thyroid Stimulating Hormone 1.51 uIU/mL (0.27-4.20); Total Bilirubin 0.3 mg/dL (0.15-1.2); Total Protein 7.6 g/dL (6.6-8.7)
[2024-02-16 21:01] LABS: Salicylate < 0.3 mg/dL (3-10)
[2024-02-16 21:02] LABS: Acetaminophen < 5.0 ug/mL (10-30); Alcohol Level < 10 mg/dL (0-10); Anion Gap 17.1 (5-19); Potassium 4.1 mmol/L (3.5-5.1)
--- NOTE | 2024-02-16 21:32 | PC.NURSE ---
96 Hour Involuntary Hold Patient Rights have been read to the patient and a copy of the same has been given to him. Hammerer Tab Willy [address] was present at the bedside at the time of presentation of Rights.
--- NOTE | 2024-02-16 22:07 | XRR_ITS ---
PROCEDURE INFORMATION: Exam: XR Chest Exam date and time: 02/16/2024 10:22 PM Age: 38 years old Clinical indication: Other: Pysch transfer; Additional info: Psych transfer TECHNIQUE: Imaging protocol: Radiologic exam of the chest. Views: 1 view. COMPARISON: No relevant prior studies available. FINDINGS: Lungs: Unremarkable. No consolidation. Pleural spaces: Unremarkable. No pleural effusion. No pneumothorax. Heart/Mediastinum: Unremarkable. No cardiomegaly. Bones/joints: Unremarkable. XR/XR chest 1V portable [id number] IMPRESSION: No acute cardiopulmonary process.
[2024-02-16 23:13] LABS: Covid PCR NEGATIVE (Negative); Influenza A NEGATIVE (Negative); Influenza B NEGATIVE (Negative); Respiratory Syncytial Virus Ce NEGATIVE (Negative)
--- NOTE | 2024-02-17 04:13 | DCPLANNER ---
The charts have been faxed to the following facilities [facility]
[2024-02-17 06:00] VITALS: BP 124/77; PULSE 81; O2SAT 97
--- NOTE | 2024-02-17 06:26 | PC.NURSE ---
Pt accepted at [facility]. Report called to Nataliia Edward RN, denied further questions.
--- NOTE | 2024-02-17 11:07 | PC.PHAR ---
Addendum entered by Tracey Haskins 02/17/24 11:10: Pt has not filled with [facility] since 06/2022, [facility] since 11/2022, and [facility] (unit dosing) since 08/2023. Original Note: Verified medications with [facility]. The majority of pts meds have not been picked up since 11/01/23 and should be out. Pharmacy states pt should have Victoza-not picked up since 03/30/23 and Metoprolol Succinate 25mg er-also not picked up since 03/30/23.
== END 2024-02-17 13:55 ==
PROVIDERS: Emergency Provider Emergency Medicine; PCP Family Medicine
DX: R45.851 Suicidal ideations (principal); Z11.52 Encounter for screening for COVID-19; F17.210 Nicotine dependence, cigarettes, uncomplicated; E78.5 Hyperlipidemia, unspecified; E11.9 Type 2 diabetes mellitus without complications
CPT/HCPCS: 0241U; 36415; 36416; 71045; 80053; 80306; 80307; 81001; 82962; 84443; 85025; 93005; 99285

== ENCOUNTER 2024-03-15 03:42 | Emergency (ER) | payer OTHER, SELFPAY ==
[2022-12-24 16:38] VITALS: BP 130/84; BMI 30.8
[2024-03-15] VITALS (11 sets, daily range): BP systolic 124–143; BP diastolic 75–88; PULSE 57–96; RESP 11–18; TEMP 36.7; O2SAT 89–99; BMI 27.9
--- NOTE | 2024-03-15 04:26 | ED_ITS ---
HPI - Nausea/Vomiting/Diarrhea 2 General: Chief complaint: Nausea/Vomiting/Diarrhea Stated complaint: Fells Bad Time Seen by Provider: 03/15/24 03:46 History of Present Illness: Patient presents to the ER for not feeling well for couple days. Says has been having abdominal pain and vomiting. But he also states he drank alcohol last night which made all of the symptoms worse. Patient does appear under the influence in the exam room Related Data Home Medications Medication Instructions Recorded Confirmed mirtazapine 30 mg tablet 30 mg PO BEDTIME 02/17/24 02/17/24 Previous Rx's Medication Instructions Recorded blood-glucose meter #1 ea 10/28/21 metoprolol succinate 25 mg 25 mg PO DAILY 90 days #90 tabs 03/30/23 tablet,extended release 24 hr pen needle, diabetic 32 gauge x #100 ea 03/30/23 (TechLITE Pen Needle) haloperidol 5 mg tablet 5 mg PO BID 30 days #60 tabs 04/20/23 hydroxyzine HCl 50 mg tablet 50 mg PO TID PRN anxiety or sleep 04/20/23 30 days #90 tabs fluoxetine 20 mg capsule 20 mg PO DAILY 30 days #30 caps 05/03/23 fluoxetine 40 mg capsule 40 mg PO DAILY 30 days #30 caps 05/03/23 blood sugar diagnostic (Blood #50 ea 06/08/23 Glucose Test strips) lancets 30 gauge (OneTouch Delica #100 ea 07/13/23 Plus Lancet) buspirone 30 mg tablet 30 mg PO BID anxiety 30 days #60 08/10/23 tabs atorvastatin 20 mg tablet (Lipitor) 20 mg PO DAILY cholesterol #90 tabs 09/22/23 blood sugar diagnostic #50 ea 09/22/23 cetirizine 10 mg tablet (All Day 10 mg PO DAILY 90 days #90 tabs 09/22/23 Allergy (cetirizine)) glipizide 10 mg tablet, extended 10 mg PO BID 90 days #180 tabs 09/22/23 release 24 hr lisinopril 10 mg tablet 10 mg PO DAILY diabetic, renal 09/22/23 function #90 tabs omeprazole 40 mg capsule,delayed 40 mg PO BID 90 days #180 caps 09/22/23 release tizanidine 2 mg tablet 2 mg PO TID PRN muscle spasticity 09/22/23 #60 tabs Allergies Allergy/AdvReac Type Severity Reaction Status Date / Time No Known Allergies Allergy Verified 03/15/24 04:20 Review of Systems 2 General: Reports: 10 or more systems reviewed and unremarkable except in HPI and below PFSH ED 2 PFSH: Medical History Hyperlipidemia Smoking Diabetes Metformin discontinued due to diarrhea. Psychiatric care Released from detention Substance abuse Intellectual disability Anxiety Psychiatric care Family History Other Diabetes Social History Smoking and tobacco/nicotine status: current every day tobacco/nicotine user cigarettes Packs smoked per day: 1 Years cigarettes smoked: 19 and smokeless tobacco Smokeless tobacco user: chewing tobacco Smokeless tobacco details: a can last about a week Quit status (tobacco/nicotine): considering quitting Second hand smoke exposure: Yes Alcohol intake: never Substance/Drug Use: never Adopted: No Caregiver/support person: Yes Lives independently: Yes Household members: family and none Housing: Apartment Marital status: Legally Number of children: 0 Number of grandchildren: 0 Highest education level completed: 9th Grade Current occupational status: unemployed Pets and animals: No Leisure activites: sports, exercise, music, hunting, fishing and other Leisure activities details: helps step dad around the house and watch movies Sexually active: No Do you think of yourself as: Straight/Heterosexual Current gender identity: Male Tiffanie/Buddhist: Zoroastrian Special tiffanie needs: No Agree to transfusion: Yes Physical Exam 2 Const: COMMON NORMALS: no acute distress, average body habitus, patient oriented x3, healthy appearing, alert and well nourished HENMT: COMMON NORMALS: normocephalic, atraumatic, hearing grossly normal bilaterally, external ears normal and Normal external nose present HEAD & SCALP: normocephalic and atraumatic NOSE: Normal external nose present E XTERNAL EAR: Yes external ears normal Neck/C-Spine: COMMON NORMALS: no JVD Chest: COMMONS NORMALS: normal inspection of the chest and normal palpation of entire chest wall Resp: COMMON NORMALS: normal respiratory effort, No retractions, No use of accessory muscles and clear to auscultation bilaterally AUSCULTATION: clear to auscultation bilaterally Cardio: COMMON NORMALS: no JVD, regular rate, regular rhythm, S1 normal heart sound present, S2 normal heart sound present, No clicks present (Cardio), No murmurs present (Cardio) and No rub (Cardio) RATE: regular rate RHYTHM: r egular rhythm HEART SOUNDS: S1 normal heart sound present and S2 normal heart sound present GI: COMMON NORMALS: Normal to inspection, nondistended, normoactive bowel sounds present, Soft to palpation, non-tender, No hepatosplenomegaly present and no masses PALPATION: Yes Soft to palpation and Yes No hepatosplenomegaly present Neuro: COMMON NORMALS: patient oriented x3 SENSORIUM/ORIENTATION: Yes alert Course 2 Vital Signs: Vital signs: Vital Signs Temperature 98.0 F 03/15/24 04:15 Pulse Rate 71 03/15/24 06:14 Respiratory Rate 14 03/15/24 06:14 Blood Pressure 124/75 03/15/24 06:14 Pulse Oximetry 95 03/15/24 06:14 Oxygen Delivery Me thod Room Air 03/15/24 04:15 MDM - Nausea/Vomiting/Diarrhea Medical Decision Making Lab results discussed with patient, patient's is all he wanted was alcohol detox. It was explained to him that we do not do alcohol detox and we can refer him to an outpatient treatment or therapist. Patient said he does want to be discharged then. We will discharge him. Medical Records I reviewed the patient's medical records. Lab Data I reviewed the patient's lab results. 03/15/24 04:30 03/15/24 04:30 Laboratory Results WBC 10.11 10^3/uL (3.29-11.43) 03/15/24 04:30 RBC 4.59 10^6/uL (3.85-5.65) 03/15/24 04:30 Hgb 14.10 g/dL (11.27-16.99) 03/15/24 04:30 Hct 43.2 % (37-53) 03/15/24 04:30 MCV 94.1 fl (82-101) 03/15/24 04:30 MCH 30.7 pg (27-33) 03/15/24 04:30 MCHC 32.6 g/dL (30-55) 03/15/24 04:30 RDW 13.4 % (12.1-15.1) 03/15/24 04:30 Plt Count 277 10^3/cmm (157-399) 03/15/24 04:30 MPV 10.6 fL (7.4-10.4) H 03/15/24 04:30 Neut % (Auto) 54.2 % 03/15/24 04:30 Lymph % (Auto) 33.8 % 03/15/24 04:30 [place] % (Auto) 8.9 % 03/15/24 04:30 Eos % (Auto) 2.1 % 03/15/24 04:30 Baso % (Auto) 0.5 % 03/15/24 04:30 Neut # (Auto) 5.48 10^3/uL (1.8-7.7) 03/15/24 04:30 Lymph # (Auto) 3.4 10^3/uL (0.8-4.8) 03/15/24 04:30 [place] # (Auto) 0.9 10^3/uL (0.2-0.9) 03/15/24 04:30 Eos # (Auto) 0.2 10^3/uL (0.0-0.8) 03/15/24 04:30 Baso # (Auto) 0.1 10^3/uL (0.0-0.1) 03/15/24 04:30 Nucleated RBC % (auto) 0 % 03/15/24 04:30 Nucleated RBCs # 0.0 /100WBC 03/15/24 04:30 Sodium 144 mmol/L (136-145) 03/15/24 04:30 Potassium 3.7 mmol/L (3.5-5.1) 03/15/24 04:30 Chloride 101 mmol/L (98-107) 03/15/24 04:30 Carbon Dioxide 31 mmol/L (22-29) H 03/15/24 04:30 Anion Gap 15.7 (5-19) 03/15/24 04:30 BUN 9 mg/dL (6-20) 03/15/24 04:30 Creatinine 0.9 mg/dL (0.7-1.2) 03/15/24 04:30 GFR Calculation 95.0 mL/min (90-130) 03/15/24 04:30 Glucose 123 mg/dL (65-115) H 03/15/24 04:30 Calculated Osmolality 298 mOsm/kg (285-295) H 03/15/24 04:30 Calcium 10.4 mg/dL (8.5-10.5) 03/15/24 04:30 Magnesium 2.1 mg/dL (1.7-2.3) 03/15/24 04:30 Total Bilirubin 0.2 mg/dL (0.15-1.2) 03/15/24 04:30 AST 29 U/L (0-40) 03/15/24 04:30 ALT 40 U/L (0-41) 03/15/24 04:30 Alkaline Phosphatase 106 U/L (40-130) 03/15/24 04:30 Total Protein 7.3 g/dL (6.6-8.7) 03/15/24 04:30 Albumin 4.4 g/dL (3.5-5.2) 03/15/24 04:30 Globulin 2.9 g/dL (1.3-4.6) 03/15/24 04:30 Ethyl Alcohol < 10 mg/dL (0-10) 03/15/24 04:30 No radiology studies performed this visit Discharge Plan Discharge Patient Disposition: Home Clinical Impression: Nausea & vomiting Qualifiers: Vomiting type: unspecified Qualified Code(s): R11.2 - Nausea with vomiting, unspecified Condition: Stable Prescriptions: No Action (DME) blood-glucose meter Kit See Rx Instructions .Route Qty: 1 0RF Rx Instructions: As directed atorvastatin [Lipitor] 20 mg tablet 20 mg PO DAILY Qty: 90 3RF glipizide 10 mg tablet extended release 24hr 10 mg PO BID 90 Days Qty: 180 2RF lisinopril 10 mg tablet 10 mg PO DAILY Qty: 90 2RF (DME) blood sugar diagnostic Strip See Rx Instructions .Route Qty: 50 3RF Rx Instructions: As directed cetirizine [All Day Allergy (cetirizine)] 10 mg tablet 10 mg PO DAILY 90 Days Qty: 90 3RF Rx Instructions: FOR ALLERGIES tizanidine 2 mg tablet 2 mg PO TID PRN (Reason: muscle spasticity) Qty: 60 5RF omeprazole 40 mg capsule,delayed release(DR/EC) 40 mg PO BID 90 Days Qty: 180 2RF metoprolol succinate 25 mg tablet extended release 24 hr 25 mg PO DAILY 90 Days Qty: 90 2RF Rx Instructions: FOR BLOOD PRESSURE (DME) pen needle, diabetic [TechLITE Pen Needle] 32 gauge x 5/32 needle See Rx Instructions .Route Qty: 100 0RF Rx Instructions: As directed haloperidol 5 mg tablet 5 mg PO BID 30 Days Qty: 60 5RF hydroxyzine HCl 50 mg tablet 50 mg PO TID PRN (Reason: anxiety or sleep) 30 Days Qty: 90 5RF fluoxetine 20 mg capsule 20 mg PO DAILY 30 Days Qty: 30 3RF Rx Instructions: take with 40mg capsule for daily total of 60mg fluoxetine 40 mg capsule 40 mg PO DAILY 30 Days Qty: 30 3RF Rx Instructions: take with 20mg capsule for daily total of 60mg (DME) Blood Glucose Test Strip See Rx Instructions .ROUTE .MEDSUPPLY Qty: 50 11RF Rx Instructions: Use to test blood sugar once daily (DME) lancets [OneTouch Delica Plus Lancet] 30 gauge misc See Rx Instructions .ROUTE .COMPLEX Qty: 100 11RF Dose Instruction: USE TO CHECK BLOOD SUGAR ONCE DAILY Rx Instructions: USE TO CHECK BLOOD SUGAR ONCE DAILY buspirone 30 mg tablet 30 mg PO BID 30 Days Qty: 60 3RF mirtazapine 30 mg tablet 30 mg PO BEDTIME Discharge Orders: Discharge ED (Routine); Ordered 03/15/24 Ordered By: Baltazar Zamora Referrals: Kathy Clemons MD [Primary Care Provider] - 1 week Patient Instructions: Acute Nausea and Vomiting (ED) Activity Restrictions/Additional Instructions: Thank you for choosing [facility] for your healthcare needs today. Please realize that you were seen in the emergency department and that we are providing you with an emergency medical screening exam and this may not be a complete and all exclusive of all testing and/or medical workup we may need to determine your element or severity of your illness. It is very important that you follow-up as instructed with your primary care provider or specialist for the additional evaluation and to discuss your medical treatment plan. You may return to the emergency department should you have concerns or if your condition changes or worsens in any way. Sign Out Sign Out Data: Patient Sign Out occurred on 03/15/24 at 06:18. Patient's care was discussed, and care was transferred from Baltazar Zamora DO to Jacek L Horstman, DO. Coding Level of Care Code ED Tubing Mill Operator for Natalie Kiran
[2024-03-15 04:53] LABS: Basophils # 0.1 10^3/uL (0.0-0.1); Basophils % 0.5 %; Eosinophils # 0.2 10^3/uL (0.0-0.8); Eosinophils % 2.1 %; Hematocrit 43.2 % (37-53); Lymphocytes # 3.4 10^3/uL (0.8-4.8); Lymphocytes % 33.8 %; Mean Corpuscular HGB Conc 32.6 g/dL (30-55); Mean Corpuscular Hemoglobin 30.7 pg (27-33); Mean Corpuscular Volume 94.1 fl (82-101); Mean Platelet Volume 10.6 fL (7.4-10.4); Monocytes # 0.9 10^3/uL (0.2-0.9); Monocytes % 8.9 %; Neutrophils # 5.48 10^3/uL (1.8-7.7); Neutrophils % 54.2 %; Nucleated Red Blood Cells % 0 %; Platelet Count 277 10^3/cmm (157-399); Red Blood Count 4.59 10^6/uL (3.85-5.65); Red Cell Distribution Width 13.4 % (12.1-15.1); White Blood Count 10.11 10^3/uL (3.29-11.43)
[2024-03-15 05:15] LABS: Alanine Aminotransferase 40 U/L (0-41); Albumin Level 4.4 g/dL (3.5-5.2); Alcohol Level < 10 mg/dL (0-10); Alkaline Phosphatase 106 U/L (40-130); Anion Gap 15.7 (5-19); Aspartate Amino Transferase 29 U/L (0-40); Blood Urea Nitrogen 9 mg/dL (6-20); Calcium 10.4 mg/dL (8.5-10.5); Carbon Dioxide 31 mmol/L (22-29); Chloride 101 mmol/L (98-107); Creatinine Clr Calc Pharmacy 107.1035; Globulin 2.9 g/dL (1.3-4.6); Glucose 123 mg/dL (65-115); Magnesium 2.1 mg/dL (1.7-2.3); Osmolality Calculated 298 mOsm/kg (285-295); Potassium 3.7 mmol/L (3.5-5.1); Sodium 144 mmol/L (136-145); Total Bilirubin 0.2 mg/dL (0.15-1.2); Total Protein 7.3 g/dL (6.6-8.7)
[2024-03-15] MEDS: ondansetron 2 mg/ML SDV 2 mL 4 MG IVP (05:46)
== END 2024-03-15 06:39 | disposition home or self-care (01) ==
PROVIDERS: Emergency Provider Emergency Medicine; PCP Family Medicine
DX: R11.2 Nausea with vomiting, unspecified (principal); F17.210 Nicotine dependence, cigarettes, uncomplicated; E78.5 Hyperlipidemia, unspecified; E11.9 Type 2 diabetes mellitus without complications
CPT/HCPCS: 36415; 80053; 80307; 83735; 85025; 96374; 99284; J2405

== ENCOUNTER 2024-06-06 20:15 | Inpatient (IN) | payer OTHER, SELFPAY ==
[2022-12-24 16:38] VITALS: BP 130/84; BMI 30.8
[2024-06-06 20:19] VITALS: BP 148/78; PULSE 86; RESP 17; TEMP 36.6; O2SAT 96; BMI 30.6
[2024-06-06 20:22] VITALS: BP 148/78; PULSE 86; RESP 17; O2SAT 96
--- NOTE | 2024-06-06 20:31 | ED.C_ITS ---
HPI - Psych 2 General: Chief Complaint: Psychiatric Symptoms Stated Complaint: SI Time Seen by Provider: 06/06/24 20:16 Source: patient Mode of arrival: ambulatory Limitations: no limitations History of Present Illness: 38-year-old male who states he has been out of his psych meds for 3 weeks he states has been having increased severe depression he states over the last week he has been having suicidal thoughts. States he has no specific plan but states he needs help because he is scared he is going to do something. Associated symptoms: Reports depression and suicidal ideation Related Data Home Medications ?Medication ?Instructions ?Recorded ?Confirmed mirtazapine 30 mg tablet 30 mg PO BEDTIME 02/17/24 Previous Rx's ?Medication ?Instructions ?Recorded blood-glucose meter #1 ea 10/28/21 metoprolol succinate 25 mg 25 mg PO DAILY 90 days #90 tabs 03/30/23 tablet,extended release 24 hr pen needle, diabetic 32 gauge x #100 ea 03/30/23 (TechLITE Pen Needle) haloperidol 5 mg tablet 5 mg PO BID 30 days #60 tabs 04/20/23 hydroxyzine HCl 50 mg tablet 50 mg PO TID PRN anxiety or sleep 04/20/23 30 days #90 tabs fluoxetine 20 mg capsule 20 mg PO DAILY 30 days #30 c aps 05/03/23 fluoxetine 40 mg capsule 40 mg PO DAILY 30 days #30 c aps 05/03/23 blood sugar diagnostic (Blood #50 ea 06/08/23 Glucose Test strips) lancets 30 gauge (OneTouch Delica #100 ea 07/13/23 Plus Lancet) buspirone 30 mg tablet 30 mg PO BID anxiety 30 days #60 08/10/23 tabs atorvastatin 20 mg tablet (Lipitor) 20 mg PO DAILY cho lesterol #90 tabs 09/22/23 blood sugar diagnostic #50 ea 09/22/23 cetirizine 10 mg tablet (All Day 10 mg PO DAILY 90 day s #90 tabs 09/22/23 Allergy (cetirizine)) glipizide 10 mg tablet, extended 10 mg PO BID 90 days #180 tabs 09/22/23 release 24 hr lisinopril 10 mg tablet 10 mg PO DAILY diabetic, mono al 09/22/23 function #90 tabs omeprazole 40 mg capsule,delayed 40 mg PO BID 90 days #180 caps 09/22/23 release tizanidine 2 mg tablet 2 mg PO TID PRN muscle spast icity 09/22/23 #60 tabs Allergies Allergy/AdvReac Type Severity Reaction Status Date / Time No Known Allergies Allergy Verified 06/06/24 20:22 Review of Systems 2 Const: Denies: fever(s), chills, body aches or change in appetite ENMT: Denies: throat pain or dental pain Card: Denies: chest pain Resp: Denies: dyspnea GI: Denies: abdominal pain, nausea, vomiting or diarrhea : Denies: dysuria Musc: Denies: neck pain or back pain Skin/Breast: Denies: rash Neuro: Denies: headache(s) Psych: Reports: depression and suicidal ideation PFSH ED 2 PFSH: Medical History Hyperlipidemia Smoking Diabetes Metformin discontinued due to diarrhea. Psychiatric care Released from residential Substance abuse Intellectual disability Anxiety Psychiatric care Family History Other Diabetes Social History Smoking and tobacco/nicotine status: current every day tobacco/nicotine user cigarettes Packs smoked per day: 1 Years cigarettes smoked: 19 and smokeless tobacco Smokeless tobacco user: chewing tobacco Smokeless tobacco details: a can last about a week Quit status (tobacco/nicotine): considering quitting Second hand smoke exposure: Yes Alcohol intake: never Substance/Drug Use: never Adopted: No Caregiver/support person: Yes Lives independently: Yes Household members: family and none Housing: Apartment Marital status: Legally Number of children: 0 Number of grandchildren: 0 Highest education level completed: 9th Grade Current occupational status: unemployed Pets and animals: No Leisure activites: sports, exercise, music, hunting, fishing and other Leisure activities details: helps step dad around the house and watch movies Sexually active: No Do you think of yourself as: Straight/Heterosexual Current gender identity: Male Tiffanie/Spiritism: Bahai Special tiffanie needs: No Agree to transfusion: Yes Physical Exam 2 Const: COMMON NORMALS: no acute distress, patient oriented x3 and healthy appearing HENMT: COMMON NORMALS: normocephalic and atraumatic HEAD & SCALP: n ormocephalic and atraumatic Eye: COMMON NORMALS: conjunctivae normal CONJUNCTIVA: Yes conjunctivae normal Neck/C-Spine: COMMON NORMALS: full ROM and supple Chest: COMMONS NORMALS: normal inspection of the chest Resp: COMMON NORMALS: normal respiratory effort Cardio: COMMON NORMALS: regular rate, regular rhythm and No murmurs present (Cardio) RATE: regular rate RHYTHM: regular rhythm Extremity: COMMON NORMALS: normal to inspection and full ROM Neuro: COMMON NORMALS: patient oriented x3, moves all extremities and no focal motor deficits Psych: COMMON NORMALS: mental status grossly normal, Normal thought process present and cooperative MOOD & AFFECT: Yes depressed mood THOUGHT PROCESS: Normal thought process present Skin: COMMON NORMALS: no rashes or lesions noted and no wounds GENERAL SKIN EXAM: no rashes or lesions noted Course 2 Vital Signs: Vital signs: Vital Signs Temperature 97.9 F 06/06/24 20:19 Pulse Rate 70 06/06/24 21:11 Respiratory Rate 16 06/06/24 21:11 Blood Pressure 122/76 06/06/24 21:11 Pulse Oximetry 96 06/06/24 21:11 Oxygen Delivery Me thod Room Air 06/06/24 20:19 MDM - Psych Medical Decision Making Patient presents here with suicidal ideations he is medically cleared I spoke to psychiatrist will admit at this time Medical Records I reviewed the patient's medical records. Lab Data I reviewed the patient's lab results. 06/06/24 20:40 06/06/24 20:40 Laboratory Results WBC 10.41 10^3/uL (3.29-11.43) 06/06/24 20:40 RBC 4.79 10^6/uL (3.85-5.65) 06/06/24 20:40 Hgb 14.60 g/dL (11.27-16.99) 06/06/24 20:40 Hct 43.1 % (37-53) 06/06/24 20:40 MCV 90.0 fl (82-101) 06/06/24 20:40 MCH 30.5 pg (27-33) 06/06/24 20:40 MCHC 33.9 g/dL (30-55) 06/06/24 20:40 RDW 13.2 % (12.1-15.1) 06/06/24 20:40 Plt Count 276 10^3/cmm (157-399) 06/06/24 20:40 MPV 10.9 fL (7.4-10.4) H 06/06/24 20:40 Neut % (Auto) 65.6 % 06/06/24 20:40 Lymph % (Auto) 25.0 % 06/06/24 20:40 [place] % (Auto) 7.8 % 06/06/24 20:40 Eos % (Auto) 0.8 % 06/06/24 20:40 Baso % (Auto) 0.4 % 06/06/24 20:40 Neut # (Auto) 6.84 10^3/uL (1.8-7.7) 06/06/24 20:40 Lymph # (Auto) 2.6 10^3/uL (0.8-4.8) 06/06/24 20:40 [place] # (Auto) 0.8 10^3/uL (0.2-0.9) 06/06/24 20:40 Eos # (Auto) 0.1 10^3/uL (0.0-0.8) 06/06/24 20:40 Baso # (Auto) 0.0 10^3/uL (0.0-0.1) 06/06/24 20:40 Nucleated RBC % (auto) 0 % 06/06/24 20:40 Nucleated RBCs # 0.0 /100WBC 06/06/24 20:40 Sodium 139 mmol/L (136-145) 06/06/24 20:40 Potassium 4.2 mmol/L (3.5-5.1) 06/06/24 20:40 Chloride 102 mmol/L (98-107) 06/06/24 20:40 Carbon Dioxide 25 mmol/L (22-29) 06/06/24 20:40 Anion Gap 16.2 (5-19) 06/06/24 20:40 BUN 6 mg/dL (6-20) 06/06/24 20:40 Creatinine 0.8 mg/dL (0.7-1.2) 06/06/24 20:40 GFR Calculation 108.8 mL/min (90-130) 06/06/24 20:40 Glucose 90 mg/dL (65-115) 06/06/24 20:40 Calculated Osmolality 285 mOsm/kg (285-295) 06/06/24 20:40 Calcium 9.9 mg/dL (8.5-10.5) 06/06/24 20:40 Total Bilirubin 0.4 mg/dL (0.15-1.2) 06/06/24 20:40 AST 20 U/L (0-40) 06/06/24 20:40 ALT 26 U/L (0-41) 06/06/24 20:40 Alkaline Phosphatase 87 U/L (40-130) 06/06/24 20:40 Total Protein 8.0 g/dL (6.6-8.7) 06/06/24 20:40 Albumin 4.8 g/dL (3.5-5.2) 06/06/24 20:40 Globulin 3.2 g/dL (1.3-4.6) 06/06/24 20:40 Urine Opiates Screen Negative ng/mL (Negative) 06/06/24 20:53 Ur Barbiturates Screen Negative ng/mL (Negative) 06/06/24 20:53 Ur Phencyclidine Scrn Negative ng/mL (Negative) 06/06/24 20:53 Ur Amphetamines Screen Negative ng/mL (Negative) 06/06/24 20:53 U Benzodiazepines Scrn Negative ng/mL (Negative) 06/06/24 20:53 Urine Cocaine Screen Negative ng/mL (Negative) 06/06/24 20:53 U Marijuana (THC) Screen Positive ng/mL (Negative) H 06/06/24 20:53 No radiology studies performed this visit Discharge Plan Discharge Patient Disposition: Admitted As Inpatient Clinical Impression: Suicidal ideation Condition: Stable Coding Level of Care Code ED Streaming Media Specialist for Natalie Kiran
[2024-06-06 20:57] LABS: Basophils % 0.4 %; Eosinophils # 0.1 10^3/uL (0.0-0.8); Eosinophils % 0.8 %; Hematocrit 43.1 % (37-53); Lymphocytes # 2.6 10^3/uL (0.8-4.8); Mean Corpuscular HGB Conc 33.9 g/dL (30-55); Mean Corpuscular Hemoglobin 30.5 pg (27-33); Mean Platelet Volume 10.9 fL (7.4-10.4); Monocytes # 0.8 10^3/uL (0.2-0.9); Monocytes % 7.8 %; Neutrophils # 6.84 10^3/uL (1.8-7.7); Neutrophils % 65.6 %; Nucleated Red Blood Cells % 0 %; Platelet Count 276 10^3/cmm (157-399); Red Blood Count 4.79 10^6/uL (3.85-5.65); Red Cell Distribution Width 13.2 % (12.1-15.1); White Blood Count 10.41 10^3/uL (3.29-11.43)
[2024-06-06 21:08] LABS: Amphetamines Screen Urine Negative (Negative); Barbiturates Screen Urine Negative (Negative); Benzodiazepines Screen Urine Negative (Negative); Cocaine Screen Urine Negative (Negative); Opiate Screen Urine Negative (Negative); PCP Screen Urine Negative (Negative); THC Screen Urine Positive (Negative)
[2024-06-06 21:11] VITALS: BP 122/76; PULSE 70; RESP 16; O2SAT 96
[2024-06-06 21:12] LABS: Alanine Aminotransferase 26 U/L (0-41); Albumin Level 4.8 g/dL (3.5-5.2); Alkaline Phosphatase 87 U/L (40-130); Anion Gap 16.2 (5-19); Aspartate Amino Transferase 20 U/L (0-40); Blood Urea Nitrogen 6 mg/dL (6-20); Calcium 9.9 mg/dL (8.5-10.5); Carbon Dioxide 25 mmol/L (22-29); Chloride 102 mmol/L (98-107); Globulin 3.2 g/dL (1.3-4.6); Glomerular Filtration Rate 108.8 mL/min (90-130); Glucose 90 mg/dL (65-115); Osmolality Calculated 285 mOsm/kg (285-295); Potassium 4.2 mmol/L (3.5-5.1); Sodium 139 mmol/L (136-145); Total Bilirubin 0.4 mg/dL (0.15-1.2)
[2024-06-06 21:13] LABS: Acetaminophen < 5.0 ug/mL (10-30); Alcohol Level < 10 mg/dL (0-10); Salicylate < 0.3 mg/dL (3-10)
--- NOTE | 2024-06-06 21:41 | PC.NURSE ---
96 Hour Hold Pt served with copy of 96 HH by this RN and security. Pt A&Ox3, pleasant and cooperative. Pt denied need for further education I was [place] when I was younger .
[2024-06-06 22:07] VITALS: BP 122/76; PULSE 70; O2SAT 96
--- NOTE | 2024-06-06 22:08 | PC.NURSE ---
pts belongings were inventoried with security at this time
[2024-06-06 22:29] VITALS: BP 128/74; PULSE 82; RESP 18; TEMP 36.4; O2SAT 99
[2024-06-06] MEDS: trazodone 50 mg Tablet PO (23:14)
[2024-06-06] MEDS: hyDROXYzine 25 mg Capsule 50 MG PO (23:14)
[2024-06-07 06:00] VITALS: BP 104/64; PULSE 70; RESP 16; TEMP 36.7; O2SAT 95
[2024-06-07] MEDS: flu vacc pf 24-25 (6 mos+) SYRINGE 45 MCG IM (09:12)
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
[2024-06-07 14:00] VITALS: BP 104/62; PULSE 58; RESP 16; TEMP 37; O2SAT 97
[2024-06-07] MEDS: nicotine 4 mg lozenge MUCOUS MEM (17:45)
[2024-06-07 19:51] VITALS: BP 114/74; PULSE 77; RESP 16; TEMP 36.6; O2SAT 97
[2024-06-07] MEDS: hyDROXYzine 25 mg Capsule 50 MG PO (22:04)
[2024-06-07] MEDS: trazodone 50 mg Tablet PO (22:04)
[2024-06-07] MEDS: divalproex ER 500 mg Tablet (24H) PO (22:04)
[2024-06-08 06:00] VITALS: BP 104/67; PULSE 63; RESP 16; TEMP 36.5; O2SAT 97
[2024-06-08 07:45] LABS: Glucose Point of Care 114 mg/dL (70-110)
--- NOTE | 2024-06-08 09:22 | PC.NURSE ---
RESTING IN BED, PT HAS BEEN INFORMED HIS MEDIATIONS ARE AT THE NURSES STATION AND READY TO COME AND GET. PT YELLED AT RN, YEAH YOU CAN JUST BRING THEM IN HERE TO ME. PT WAS EDUCATED THAT HIS PATIENT ID HAS TO BE SCANNED. PT YELLED AT RN YEAH WHATEVER. PT CONTINUES TO LAY IN BED AND HAS NOT GOTTEN UP TO TAKE MEDICATIONS. DENIES PAIN. DENIES HI AND AVH AT THIS TIME. PT STATES HE HAS SUICIDAL THOUGHTS THAT COME AND GO AND DENIES HAVING A PLAN. PT IS NOTED TO BE WITHDRAWN AND ISOLATES TO ROOM. FLAT AFFECT IS NOTED. SUPPORT VOICED.
[2024-06-08] MEDS: buPROPion XL (24 HR) 150 mg Tablet PO (10:31)
[2024-06-08] MEDS: nicotine 4 mg lozenge MUCOUS MEM ×2 (10:31→15:26)
[2024-06-08] MEDS: divalproex ER 500 mg Tablet (24H) PO (10:31)
[2024-06-08 11:20] LABS: Glucose Point of Care 112 mg/dL (70-110)
[2024-06-08 14:00] VITALS: BP 127/82; PULSE 69; RESP 17; O2SAT 97
[2024-06-08] MEDS: OLANZapine 5 mg ODT PO (16:09)
[2024-06-08 17:19] LABS: Glucose Point of Care 113 mg/dL (70-110)
[2024-06-08] MEDS: acetaminophen 325 mg Tablet 650 MG PO (17:28)
--- NOTE | 2024-06-08 17:57 | P.NPUPN_ITS ---
Subjective NPU 2 Subjective: Patient presented today reporting that things were feeling better. He reported that he was feeling a bit tired but otherwise he denied any side effects of the medication. We agreed we take it a day at a time and identify whether his symptoms started to improve. He denied any new or pressing issues. Mental Status Exam 2 MSE Comments: This is an overweight versus obese white male in hospital scrubs with limited grooming and eye contact. No abnormal movements except for psychomotor retardation. Cooperative with exam and mild to moderate distress. Speech was decreased rate and volume. Mood described as depressed, affect congruent. Thought process organized. Thought content: Patient endorsed some suicidal ideation but denied homicidal ideation, there were no delusions noted but reports of paranoia, he denied current auditory or visual hallucinations. Reports having suicidal thoughts, with a history of multiple suicide attempts, including overdoses and self-harm by cutting and burning with cigarettes. Denies any thoughts of harming others. Experiences visual hallucinations and paranoia, feeling that people are out to get them or following them. Reports significant anxiety, using cannabis to manage symptoms, and ongoing depression with a history of antidepressant use. Describes mood as trying to come out of depression. Stressors include homelessness and difficulty maintaining employment due to criminal history. Attention and concentration were limited and memory was mostly reliable but no more formally tested. He is alert and oriented times person and place. Insight, judgment and impulse control were limited versus impaired. Vitals/I&O/Wt Last Vital Signs Temp 97.7 F 06/08/24 06:00 Pulse 69 06/08/24 14:00 Resp 17 06/08/24 14:00 BP 127/82 06/08/24 14:00 Pulse Ox 97 06/08/24 14:00 O2 Del Method Room Air 06/08/24 06:00 Weight last 48 hrs Weight 83.461 kg Data NPU 06/06/24 20:40 06/06/24 20:40 A&P Assessment and plan (1) Anxiety: (2) Substance abuse: (3) Suicidal ideation: (4) Major depressive disorder, recurrent: (5) Paranoia: (6) Cannabis use disorder: (7) Alcohol use: Plan This is a 38-year-old white male with a long history of mental health and addiction issues with endorsement of trauma with genetic loading for mental health and addiction issues who presents with frequent inpatient hospitalizations but none here since 2014 but most recent January or February of last year. There is a history of major depressive disorder with suicidal ideation and self-injurious behavior, including burning with cigarettes. There is also a presence of anxiety, paranoia, and auditory hallucinations. The patient has a history of substance use, including cannabis and alcohol, which may contribute to the psychiatric symptoms. The patient has been on multiple psychiatric medications in the past, with Depakote being mentioned as part of the recent treatment regimen. The patient has a complex psychiatric history with multiple hospitalizations and suicide attempts, indicating a severe and persistent mental health condition. 1. Started Depakote ER 500 mg p.o. nightly. Initiated Wellbutrin XL 150 mg p.o. every morning. 2. Continue every 15 minute checks for safety. 3. Encourage individual, group and milieu therapies. 4. Encourage sober living treatment after discharge at the highest level of care to which he is willing to commit. 5. Get collateral information. 6. Evaluate against the backdrop of the 96-hour hold. PDMP PDMP Reviewed: Not Reviewed Involuntary Hold Information 2 Hold Status: Legal Status: 96 Hour Hold Date/Time Hold Expires: 0 06/12/24@20:15 Attestations NPU 2 Medical Necessity Statement*: Inpatient hospitalization is medically necessary and the clinically appropriate intervention at this time. We will monitor/initiate medications and make changes as indicated. Likely length of stay 4 to 7 days. Coding Level of Care Code Acute Code for g Fwd Diagnoses Anxiety F41.9 Substance abuse F19.10 Suicidal ideation R45.851 Major depressive disorder, recurrent F33.9 Paranoia F22 Cannabis use disorder F12.90 Alcohol use F10.90
[2024-06-08 20:31] VITALS: BP 128/69; PULSE 60; RESP 16; TEMP 37; O2SAT 98
[2024-06-08] MEDS: hyDROXYzine 25 mg Capsule 50 MG PO (22:13)
[2024-06-08] MEDS: trazodone 50 mg Tablet PO (22:13)
[2024-06-09 06:00] VITALS: BP 96/59; PULSE 60; RESP 16; TEMP 36.5; O2SAT 98
[2024-06-09 07:30] LABS: Glucose Point of Care 119 mg/dL (70-110)
[2024-06-09] MEDS: buPROPion XL (24 HR) 150 mg Tablet PO (08:47)
[2024-06-09] MEDS: divalproex ER 500 mg Tablet (24H) PO (08:47)
[2024-06-09] MEDS: nicotine 4 mg lozenge MUCOUS MEM ×2 (08:47→12:46)
[2024-06-09 10:58] LABS: Glucose Point of Care 132 mg/dL (70-110)
[2024-06-09 14:00] VITALS: BP 165/110; PULSE 70; RESP 16; TEMP 37.1; O2SAT 100
--- NOTE | 2024-06-09 15:51 | P.NPUPN_ITS ---
Subjective NPU 2 Subjective: Patient presented today reporting he is a little irritable/irritated. He reports that he and his fianc?e were getting snugly during the visit and were asked to refrain from PDA. He spent much of the interview talking about being upset about that. He had been talking to staff about discharge but he did not bring that up. We discussed some showing restraint through the weekend and the possibility of discharge earlier next week. He denied any side effects to the medication. Mental Status Exam 2 MSE Comments: This is an overweight versus obese white male in hospital scrubs with limited grooming and eye contact. No abnormal movements except for psychomotor retardation. Cooperative with exam and mild to moderate distress. Speech was decreased rate and volume. Mood described as depressed, affect congruent. Thought process organized. Thought content: Patient endorsed some suicidal ideation but denied homicidal ideation, there were no delusions noted but reports of paranoia, he denied current auditory or visual hallucinations. Reports having suicidal thoughts, with a history of multiple suicide attempts, including overdoses and self-harm by cutting and burning with cigarettes. Denies any thoughts of harming others. Experiences visual hallucinations and paranoia, feeling that people are out to get them or following them. Reports significant anxiety, using cannabis to manage symptoms, and ongoing depression with a history of antidepressant use. Describes mood as trying to come out of depression. Stressors include homelessness and difficulty maintaining employment due to criminal history. Attention and concentration were limited and memory was mostly reliable but no more formally tested. He is alert and oriented times person and place. Insight, judgment and impulse control were limited versus impaired. Vitals/I&O/Wt Last Vital Signs Temp 98.7 F 06/09/24 14:00 Pulse 70 06/09/24 14:00 Resp 16 06/09/24 14:00 BP 165/110 06/09/24 14:00 Pulse Ox 100 06/09/24 14:00 O2 Del Method Room Air 06/09/24 14:00 Data NPU 06/06/24 20:40 06/06/24 20:40 A&P Assessment and plan (1) Anxiety: (2) Substance abuse: (3) Suicidal ideation: (4) Major depressive disorder, recurrent: (5) Paranoia: (6) Cannabis use disorder: (7) Alcohol use: Plan This is a 38-year-old white male with a long history of mental health and addiction issues with endorsement of trauma with genetic loading for mental health and addiction issues who presents with frequent inpatient hospitalizations but none here since 2014 but most recent January or February of last year. There is a history of major depressive disorder with suicidal ideation and self-injurious behavior, including burning with cigarettes. There is also a presence of anxiety, paranoia, and auditory hallucinations. The patient has a history of substance use, including cannabis and alcohol, which may contribute to the psychiatric symptoms. The patient has been on multiple psychiatric medications in the past, with Depakote being mentioned as part of the recent treatment regimen. The patient has a complex psychiatric history with multiple hospitalizations and suicide attempts, indicating a severe and persistent mental health condition. 1. Started Depakote ER 500 mg p.o. nightly. Initiated Wellbutrin XL 150 mg p.o. every morning. 2. Continue every 15 minute checks for safety. 3. Encourage individual, group and milieu therapies. 4. Encourage sober living treatment after discharge at the highest level of care to which he is willing to commit. 5. Get collateral information. 6. Evaluate against the backdrop of the 96-hour hold. PDMP PDMP Reviewed: Not Reviewed Involuntary Hold Information 2 Hold Status: Legal Status: 96 Hour Hold Date/Time Hold Expires: 0 06/12/24@20:15 Attestations NPU 2 Medical Necessity Statement*: Inpatient hospitalization is medically necessary and the clinically appropriate intervention at this time. We will monitor/initiate medications and make changes as indicated. Likely length of stay 3-6 days. Coding Level of Care Code Acute Code for [facility] Fwd Diagnoses Anxiety F41.9 Substance abuse F19.10 Suicidal ideation R45.851 Major depressive disorder, recurrent F33.9 Paranoia F22 Cannabis use disorder F12.90 Alcohol use F10.90
--- NOTE | 2024-06-09 16:16 | PC.NURSE ---
pt up at nurses station wanting to speak with Doctor Clemons, informed pt that he is seeing pictures right now and it should not be to long before he see him. when this manager employment asked pt was there something I could help him with pt started yelling at staff stating he or his was not going to be spoken to like people are speaking to them. pt would not give any other detail when asked what was said. he states it was the tone of voice that bothers him and that she was rude pt then turned away stating fuch you bitches. pt walked back to his room. gave pt some time to calm down then this manager employment went to talk calmly with pt. pt stated he was just so mad and wanted to speak with the Doctor. pt denied any attempt for this staff member to explain that in this unit public display of affection such as continued hugging and kissing are not allowed that this manager employment reminded pt that both he and his were instructed about displays of affection upon pt arriving. pt at that time told this manager employment to shut the fuck up and get out of his room. the only one he wanted to speak with is the Doctor. at that time I left the room informed doctor of pt request and complaint.
[2024-06-09 17:24] LABS: Glucose Point of Care 99 mg/dL (70-110)
[2024-06-09] MEDS: hyDROXYzine 25 mg Capsule 50 MG PO (17:55)
[2024-06-09] MEDS: OLANZapine 5 mg ODT PO (19:30)
[2024-06-09] MEDS: trazodone 50 mg Tablet PO (20:33)
[2024-06-09 20:37] VITALS: BP 116/82; PULSE 75; RESP 18; O2SAT 97
[2024-06-10 06:00] VITALS: BP 102/59; PULSE 54; RESP 16; O2SAT 96
[2024-06-10 07:33] LABS: Glucose Point of Care 127 mg/dL (70-110)
--- NOTE | 2024-06-10 08:43 | P.NPUPN_ITS ---
Subjective NPU 2 Subjective: Patient presented today reporting that things are going okay. He reported initially wanting to be discharged first thing in the morning on Wednesday but then identified that he did not have a place to go. We discussed that we generally discharge people to a place and that we could wait for the social work team and him to work on that discharge plan on Wednesday which she was okay with. He reports he feels his significant other might be back in town later that evening on Wednesday and we discussed the fact that we did have people sometimes discharge later in the day based on transportation logistics. He endorsed a willingness to work with the team on planning moving forward. He reports things are going okay with the medication and he denied any side effects. Mental Status Exam 2 MSE Comments: This is an overweight versus obese white male in hospital scrubs with limited grooming and eye contact. No abnormal movements except for psychomotor retardation. Cooperative with exam and mild to moderate distress. Speech was decreased rate and volume. Mood described as depressed, affect congruent. Thought process organized. Thought content: Patient endorsed some suicidal ideation but denied homicidal ideation, there were no delusions noted but reports of paranoia, he denied current auditory or visual hallucinations. Reports having suicidal thoughts, with a history of multiple suicide attempts, including overdoses and self-harm by cutting and burning with cigarettes. Denies any thoughts of harming others. Experiences visual hallucinations and paranoia, feeling that people are out to get them or following them. Reports significant anxiety, using cannabis to manage symptoms, and ongoing depression with a history of antidepressant use. Describes mood as trying to come out of depression. Stressors include homelessness and difficulty maintaining employment due to criminal history. Attention and concentration were limited and memory was mostly reliable but no more formally tested. He is alert and oriented times person and place. Insight, judgment and impulse control were limited versus impaired. Vitals/I&O/Wt Last Vital Signs Temp 98.7 F 06/09/24 14:00 Pulse 54 L 06/10/24 06:00 Resp 16 06/10/24 06:00 BP 102/59 06/10/24 06:00 Pulse Ox 96 06/10/24 06:00 O2 Del Method Room Air 06/09/24 14:00 Data NPU 06/06/24 20:40 06/06/24 20:40 A&P Assessment and plan (1) Anxiety: (2) Substance abuse: (3) Suicidal ideation: (4) Major depressive disorder, recurrent: (5) Paranoia: (6) Cannabis use disorder: (7) Alcohol use: Plan This is a 38-year-old white male with a long history of mental health and addiction issues with endorsement of trauma with genetic loading for mental health and addiction issues who presents with frequent inpatient hospitalizations but none here since 2014 but most recent January or February of last year. There is a history of major depressive disorder with suicidal ideation and self-injurious behavior, including burning with cigarettes. There is also a presence of anxiety, paranoia, and auditory hallucinations. The patient has a history of substance use, including cannabis and alcohol, which may contribute to the psychiatric symptoms. The patient has been on multiple psychiatric medications in the past, with Depakote being mentioned as part of the recent treatment regimen. The patient has a complex psychiatric history with multiple hospitalizations and suicide attempts, indicating a severe and persistent mental health condition. 1. Started Depakote ER 500 mg p.o. nightly. Initiated Wellbutrin XL 150 mg p.o. every morning. 2. Continue every 15 minute checks for safety. 3. Encourage individual, group and milieu therapies. 4. Encourage sober living treatment after discharge at the highest level of care to which he is willing to commit. 5. Get collateral information. 6. Evaluate against the backdrop of the 96-hour hold. PDMP PDMP Reviewed: Not Reviewed Involuntary Hold Information 2 Hold Status: Legal Status: 96 Hour Hold Date/Time Hold Expires: 0 06/12/24@20:15 Attestations NPU 2 Medical Necessity Statement*: Inpatient hospitalization is medically necessary and the clinically appropriate intervention at this time. We will monitor/initiate medications and make changes as indicated. Likely length of stay 2-5 days. Coding Level of Care Code Acute Code for g Fwd Diagnoses Anxiety F41.9 Substance abuse F19.10 Suicidal ideation R45.851 Major depressive disorder, recurrent F33.9 Paranoia F22 Cannabis use disorder F12.90 Alcohol use F10.90
[2024-06-10] MEDS: divalproex ER 500 mg Tablet (24H) PO (08:52)
[2024-06-10] MEDS: buPROPion XL (24 HR) 150 mg Tablet PO (08:52)
[2024-06-10] MEDS: nicotine 4 mg lozenge MUCOUS MEM ×3 (09:14→18:42)
[2024-06-10 14:00] VITALS: BP 110/72; PULSE 85; RESP 17; TEMP 36.7; O2SAT 98
[2024-06-10 17:10] LABS: Glucose Point of Care 136 mg/dL (70-110)
[2024-06-10] MEDS: hyDROXYzine 25 mg Capsule 50 MG PO (17:11)
[2024-06-10] MEDS: ibuprofen 600 mg Tablet PO (19:32)
[2024-06-10 20:29] VITALS: BP 107/55; PULSE 60; RESP 18; O2SAT 96
[2024-06-10] MEDS: OLANZapine 5 mg ODT PO (20:40)
[2024-06-10] MEDS: trazodone 50 mg Tablet PO (20:40)
[2024-06-10] MEDS: acetaminophen 325 mg Tablet 650 MG PO (20:40)
[2024-06-11 06:00] VITALS: BP 107/72; PULSE 54; RESP 16; O2SAT 98
[2024-06-11 08:08] LABS: Glucose Point of Care 122 mg/dL (70-110)
[2024-06-11] MEDS: divalproex ER 500 mg Tablet (24H) PO (08:10)
[2024-06-11] MEDS: buPROPion XL (24 HR) 150 mg Tablet PO (08:10)
--- NOTE | 2024-06-11 11:32 | P.NPUPN_ITS ---
Subjective NPU 2 Subjective: Patient presented today reporting that he is doing a little better and needs to figure out the next step in his treatment. He reports he is open to working with the social work team when they return tomorrow to figure out where he might go. He reports that his significant other is going to be in town later in the day but at this point he is not clear that he is able to return with her. We talked about there being some different residential possibilities but that he would have to talk to the social work team about those options. He denied any side effects to the medication. Mental Status Exam 2 MSE Comments: This is an overweight versus obese white male in hospital scrubs with limited grooming and eye contact. No abnormal movements except for psychomotor retardation. Cooperative with exam and mild distress. Speech was decreased rate and volume. Mood described as a little better, affect congruent. Thought process organized. Thought content: Patient endorsed some suicidal ideation but denied homicidal ideation, there were no delusions noted but reports of paranoia, he denied current auditory or visual hallucinations. Reports having suicidal thoughts, with a history of multiple suicide attempts, including overdoses and self-harm by cutting and burning with cigarettes. Denies any thoughts of harming others. Experiences visual hallucinations and paranoia, feeling that people are out to get them or following them. Reports significant anxiety, using cannabis to manage symptoms, and ongoing depression with a history of antidepressant use. Describes mood as trying to come out of depression. Stressors include homelessness and difficulty maintaining employment due to criminal history. Attention and concentration were limited and memory was mostly reliable but no more formally tested. He is alert and oriented times person and place. Insight, judgment and impulse control were limited versus impaired. Vitals/I&O/Wt Last Vital Signs Temp 98.0 F 06/10/24 14:00 Pulse 54 L 06/11/24 06:00 Resp 16 06/11/24 06:00 BP 107/72 06/11/24 06:00 Pulse Ox 98 06/11/24 06:00 O2 Del Method Room Air 06/10/24 14:00 Weight last 48 hrs Weight 82.214 kg Data NPU 06/06/24 20:40 06/06/24 20:40 A&P Assessment and plan (1) Anxiety: (2) Substance abuse: (3) Suicidal ideation: (4) Major depressive disorder, recurrent: (5) Paranoia: (6) Cannabis use disorder: (7) Alcohol use: Plan This is a 38-year-old white male with a long history of mental health and addiction issues with endorsement of trauma with genetic loading for mental health and addiction issues who presents with frequent inpatient hospitalizations but none here since 2014 but most recent January or February of last year. There is a history of major depressive disorder with suicidal ideation and self-injurious behavior, including burning with cigarettes. There is also a presence of anxiety, paranoia, and auditory hallucinations. The patient has a history of substance use, including cannabis and alcohol, which may contribute to the psychiatric symptoms. The patient has been on multiple psychiatric medications in the past, with Depakote being mentioned as part of the recent treatment regimen. The patient has a complex psychiatric history with multiple hospitalizations and suicide attempts, indicating a severe and persistent mental health condition. 1. Started Depakote ER 500 mg p.o. nightly. Initiated Wellbutrin XL 150 mg p.o. every morning. 2. Continue every 15 minute checks for safety. 3. Encourage individual, group and milieu therapies. 4. Encourage sober living treatment after discharge at the highest level of care to which he is willing to commit. 5. Get collateral information. 6. Evaluate against the backdrop of the 96-hour hold. PDMP PDMP Reviewed: Not Reviewed Involuntary Hold Information 2 Hold Status: Legal Status: 96 Hour Hold Date/Time Hold Expires: 0 06/12/24@20:15 Attestations NPU 2 Medical Necessity Statement*: Inpatient hospitalization is medically necessary and the clinically appropriate intervention at this time. We will monitor/initiate medications and make changes as indicated. Likely length of stay 2-4 days. Coding Level of Care Code Acute Code for g Fwd Diagnoses Anxiety F41.9 Substance abuse F19.10 Suicidal ideation R45.851 Major depressive disorder, recurrent F33.9 Paranoia F22 Cannabis use disorder F12.90 Alcohol use F10.90
[2024-06-11 11:56] LABS: Glucose Point of Care 125 mg/dL (70-110)
[2024-06-11 13:16] VITALS: BP 103/66; PULSE 71; RESP 17; TEMP 36.6; O2SAT 97
[2024-06-11 14:00] VITALS: BP 103/66; PULSE 71; RESP 17; TEMP 36.6; O2SAT 97
[2024-06-11] MEDS: hyDROXYzine 25 mg Capsule 50 MG PO (15:04)
[2024-06-11] MEDS: nicotine 4 mg lozenge MUCOUS MEM (15:04)
[2024-06-11] MEDS: OLANZapine 5 mg ODT PO (16:41)
[2024-06-11 17:07] LABS: Glucose Point of Care 122 mg/dL (70-110)
[2024-06-11 19:56] VITALS: BP 128/78; PULSE 74; RESP 18; TEMP 36.9; O2SAT 93
[2024-06-11] MEDS: trazodone 50 mg Tablet PO (20:09)
[2024-06-12 06:00] VITALS: BP 102/62; PULSE 50; RESP 16; O2SAT 95
[2024-06-12 07:31] LABS: Glucose Point of Care 137 mg/dL (70-110)
[2024-06-12] MEDS: divalproex ER 500 mg Tablet (24H) PO (08:35)
[2024-06-12] MEDS: buPROPion XL (24 HR) 150 mg Tablet PO (08:35)
[2024-06-12 14:00] VITALS: BP 136/91; PULSE 78; RESP 18; O2SAT 98
[2024-06-12] MEDS: calcium carbonate 500 mg Chew Tablet 1000 MG PO (15:17)
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
[2024-06-12 16:30] VITALS: BP 136/91; PULSE 78; RESP 18; TEMP 36.6; O2SAT 98
== END 2024-06-12 17:00 | disposition home or self-care (01) | DRG 885 ==
LOC: ER 21:28 → NP 21:49
PROVIDERS: Admitting Provider Psychiatry & Neurology Psychiatry; Emergency Provider Emergency Medicine; PCP Family Medicine; Visit Provider Psychiatry & Neurology Psychiatry
DX: F33.9 Major depressive disorder, recurrent, unspecified (principal); R45.851 Suicidal ideations; Z59.00 Homelessness unspecified; F41.9 Anxiety disorder, unspecified; F19.10 Other psychoactive substance abuse, uncomplicated; F22 Delusional disorders; Z91.52 Personal history of nonsuicidal self-harm; E66.9 Obesity, unspecified; Z68.30 Body mass index [BMI] 30.0-30.9, adult; Z91.51 Personal history of suicidal behavior; E11.9 Type 2 diabetes mellitus without complications
CPT/HCPCS: 36415; 36416; 80053; 80306; 80307; 82962; 85025; 90471; 90686; 97165; 99285; J9999

== ENCOUNTER 2024-06-13 11:52 | Emergency (ER) | payer OTHER, SELFPAY ==
[2022-12-24 16:38] VITALS: BP 130/84; BMI 30.8
[2024-06-13 12:16] VITALS: BP 118/72; PULSE 99; RESP 15; TEMP 36.8; O2SAT 98; BMI 30.1
--- NOTE | 2024-06-13 13:07 | ED_ITS ---
HPI - Ear Problem General: Chief complaint: Ear Stated complaint: L ear pain Time Seen by Provider: 06/13/24 13:06 Source: patient Mode of arrival: ambulatory Limitations: no limitations History of Present Illness: Patient is a 38-year-old male who presents today with left ear pain. He states that this began about a week ago when he felt some pressure in his ear. He notes that he has had numerous episodes of this in the past. He feels that there is a buildup of wax in his ear that needs to be flushed out. Patient denies recent upper respiratory illness or allergies. Denies hearing loss or di zziness. MD Complaint: ear pain Location: left ear Duration: intermittent Severity: mild Relieving factors: nothing Exacerbating factors: nothing Discharge from ear: no Associated symptoms: Reports no associated symptoms; Denies ear or mastoid pain, fever(s), headache(s), hearing loss or tinnitus Treatment prior to arrival: none Related Data Previous Rx's ?Medication ?Instructions ?Recorded bupropion HCl 150 mg 24 hr tablet, 150 mg PO DAILY 30 days #30 tabs 06/12/24 extended release divalproex 500 mg tablet,extended 500 mg PO DAILY 30 d ays #30 tabs 06/12/24 release 24 hr trazodone 50 mg tablet 50 mg PO BEDTIME PRN Sleep 3 0 days 06/12/24 #30 tabs Allergies Allergy/AdvReac Type Severity Reaction Status Date / Time No Known Allergies Allergy Verified 06/06/24 20:22 Review of Systems Const: Denies: fever(s) ENMT: Reports: change in hearing (feels full/muffled ); Denies: throat pain, odynophagia, ear or mastoid pain, ear discharge, tinnitus, disequilibrium, nasal discharge or nasal congestion Neuro: Denies: headache(s) PFSH ED PFSH: Medical History Hyperlipidemia Smoking Diabetes Metformin discontinued due to diarrhea. Psychiatric care Released from skilled nursing Substance abuse Intellectual disability Anxiety Psychiatric care Family History Other Diabetes Social History Smoking and tobacco/nicotine status: current every day tobacco/nicotine user cigarettes Packs smoked per day: 1 Years cigarettes smoked: 18 and smokeless tobacco Smokeless tobacco user: chewing tobacco Smokeless tobacco details: a can last about a week Quit status (tobacco/nicotine): considering quitting Second hand smoke exposure: Yes Alcohol intake: never Substance/Drug Use: never Adopted: No Caregiver/support person: Yes Lives independently: Yes Household members: family and none Housing: Apartment Marital status: Legally Number of children: 0 Number of grandchildren: 0 Highest education level completed: 9th Grade Current occupational status: unemployed Pets and animals: No Leisure activites: sports, exercise, music, hunting, fishing and other Leisure activities details: helps step dad around the house and watch movies Sexually active: No Do you think of yourself as: Straight/Heterosexual Current gender identity: Male Tiffanie/Religious: Yazidi Special tiffanie needs: No Agree to transfusion: Yes Physical Exam Const: COMMON NORMALS: no acute distress, average body habitus, no limitations, alert and well nourished HENMT: COMMON NORMALS: external ears normal and EAC's normal EXTERNAL EAR: Yes external ears normal, Yes mastoids normal and Yes no periauricular adenopathy EXTERNAL AUDITORY CANAL: EAC's normal TYMPANIC MEMBRANE: TM normal on the right and TM abnormal TM laterality: left (mild serous otitis) Details: effusion and fluid behind TM Neuro: SENSORIUM/ORIENTATION: Yes alert Course Vital Signs: Vital signs: Vital Signs Temperature 98.3 F 06/13/24 12:16 Pulse Rate 92 06/13/24 13:45 Respiratory Rate 16 06/13/24 13:45 Blood Pressure 116/74 06/13/24 13:45 Pulse Oximetry 99 06/13/24 13:45 Oxygen Delivery Me thod Room Air 06/13/24 12:16 MDM - Ear Medical Decision Making Patient with a mild serous otitis. There is no cerumen buildup. Discussed conservative therapies at home including time probably being the most beneficial. If symptoms do not improve he can follow-up with primary care or obtain referral to ENT. Medical Records I reviewed the patient's medical records. No radiology studies performed this visit Discharge Plan Discharge Patient Disposition: Home Clinical Impression: Acute serous otitis media, left ear Qualifiers: Recurrence: not specified as recurrent Qualified Code(s): H65.02 - Acute serous otitis media, left ear Condition: Stable Prescriptions: No Action trazodone 50 mg Tablet 50 mg PO BEDTIME PRN (Reason: Sleep) 30 Days Qty: 30 1RF divalproex 500 mg Tablet Extended Release 24 Hr 500 mg PO DAILY 30 Days Qty: 30 1RF bupropion HCl 150 mg Tablet Extended Release 24 Hr 150 mg PO DAILY 30 Days Qty: 30 1RF Discharge Orders: Discharge ED (Routine); Ordered 06/13/24 Ordered By: Nahed Daily Referrals: Pepito Mann MD [Primary Care Provider] - Patient Instructions: Fluid In The Ear (Serous Otitis Media) (ED) Print Language: Macedonian Coding Level of Care Code ED Crack Off Person for Gretag Qiana
[2024-06-13 13:45] VITALS: BP 116/74; PULSE 92; RESP 16; O2SAT 99
== END 2024-06-13 13:44 | disposition home or self-care (01) ==
PROVIDERS: Emergency Provider Physician Assistant; PCP Family Medicine
DX: H65.02 Acute serous otitis media, left ear (principal); F17.210 Nicotine dependence, cigarettes, uncomplicated; E11.9 Type 2 diabetes mellitus without complications
CPT/HCPCS: 99282

== ENCOUNTER 2024-06-29 23:51 | Inpatient (IN) | payer OTHER, SELFPAY ==
[2022-12-24 16:38] VITALS: BP 130/84; BMI 30.8
--- NOTE | 2024-06-29 23:54 | ECG_ITS ---
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 Measurements Intervals [place] Rate: 80 P: -1 KS: 136 QRS: 129 QRSD: 102 T: -29 QT: 347 QTc: 400 Interpretive Statements SINUS RHYTHM LEFT POSTERIOR FASCICULAR BLOCK [QRS AXIS > 109, INFERIOR Q] NONSPECIFIC T-WAVE ABNORMALITY Compared to ECG 02/16/2024 20:47:19 Left posterior fascicular block now present T-wave abnormality still present Electronically Signed On 06-30-2024 08:38:15 CDT by Holger Crump M.D. [email or web address] [id number]
[2024-06-29 23:56] VITALS: BP 132/89; PULSE 72; RESP 20; TEMP 36.9; O2SAT 97; BMI 29.2
--- NOTE | 2024-06-30 00:11 | W.ED.PSYCHS ---
HPI - Psych General: Chief Complaint: Psychiatric Symptoms Stated Complaint: SI Time Seen by Provider: 06/29/24 23:54 History of Present Illness: Patient is a 38-year-old male seen for suicidal thoughts. He states that he has a lot of stress in his life and that he was about to [place] decided come to the hospital instead. He has felt similar feelings in the past and sought psychiatric care. He has no other acute complaints. Related Data Previous Rx's ?Medication ?Instructions ?Recorded bupropion HCl 150 mg 24 hr tablet, 150 mg PO DAILY 30 days #30 tabs 06/27/24 extended release buspirone 10 mg tablet 10 mg PO BID #60 tabs 06/27/24 divalproex 500 mg tablet,extended 500 mg PO BID 30 days #60 tabs 06/27/24 release 24 hr hydroxyzine HCl 50 mg tablet 50 mg PO QID PRN anxiety/insomnia 06/27/24 #120 tabs trazodone 50 mg tablet 100 mg (2 x 50 mg) PO BEDTIME PRN 06/27/24 Sleep 30 days #60 tabs Allergies Allergy/AdvReac Type Severity Reaction Status Date / Time No Known Allergies Allergy Verified 06/27/24 13:33 [facility] ED PFSH: Medical History Hyperlipidemia Smoking Diabetes Metformin discontinued due to diarrhea. Psychiatric care Released from group home Substance abuse Intellectual disability Anxiety Psychiatric care Family History Other Diabetes Social History Smoking and tobacco/nicotine status: current every day tobacco/nicotine user cigarettes Packs smoked per day: 1 Years cigarettes smoked: 19 and smokeless tobacco Smokeless tobacco user: chewing tobacco Smokeless tobacco details: a can last about a week Quit status (tobacco/nicotine): considering quitting Second hand smoke exposure: Yes Alcohol intake: never Substance/Drug Use: never Adopted: No Caregiver/support person: Yes Lives independently: Yes Household members: family and none Housing: Apartment Marital status: Legally Number of children: 0 Number of grandchildren: 0 Highest education level completed: 9th Grade Current occupational status: unemployed Pets and animals: No Leisure activites: sports, exercise, music, hunting, fishing and other Leisure activities details: helps step dad around the house and watch movies Sexually active: No Do you think of yourself as: Straight/Heterosexual Current gender identity: Male Tiffanie/Anabaptism: Mormon Special tiffanie needs: No Agree to transfusion: Yes Physical Exam Const: COMMON NORMALS: no acute distress, patient oriented x3 and alert HENMT: COMMON NORMALS: normocephalic and atraumatic HEAD & SCALP: normocephalic and atraumatic Eye: COMMON NORMALS: Equal, round and reactive pupils present, EOMs intact bilaterally and no scleral icterus PUPIL: Yes Equal, round and reactive pupils present Resp: COMMON NORMALS: normal respiratory effort and No retractions Cardio: COMMON NORMALS: regular rate, regular rhythm and No murmurs present (Cardio) RATE: regular rate RHYTHM: regular rhythm GI: COMMON NORMALS: Normal to inspection, nondistended, normoactive bowel sounds present, Soft to palpation and non-tender PALPATION: Yes Soft to palpation Neuro: COMMON NORMALS: patient oriented x3 SENSORIUM/ORIENTATION: Yes alert Psych: OTHER: admits suicidal ideation with plan to walk out in traffic. Denies HI. No delusions or hallucinations actively. Skin: COMMON NORMALS: no rashes or lesions noted GENERAL SKIN EXAM: no rashes or lesions noted Course Vital Signs: Vital signs: Vital Signs Temperature 97.7 F 06/30/24 06:00 Pulse Rate 75 06/30/24 06:00 Respiratory Rate 17 06/30/24 06:00 Blood Pressure 133/99 06/30/24 06:00 Pulse Oximetry 98 06/30/24 06:00 Oxygen Delivery Me thod Room Air 06/30/24 06:00 [facility] - Psych Medical Decision Making Patient was medically cleared and placed on a 96-hour hold. I spoke with psychiatry who agrees patient would benefit from inpatient care and he will be admitted to the inpatient psych service for further treatment of suicidal thoughts. Lab Data 06/30/24 00:45 06/30/24 00:45 Laboratory Results WBC 9.61 10^3/uL (3.29-11.43) 06/30/24 00:45 RBC 4.64 10^6/uL (3.85-5.65) 06/30/24 00:45 Hgb 14.10 g/dL (11.27-16.99) 06/30/24 00:45 Hct 42.1 % (37-53) 06/30/24 00:45 MCV 90.7 fl (82-101) 06/30/24 00:45 MCH 30.4 pg (27-33) 06/30/24 00:45 MCHC 33.5 g/dL (30-55) 06/30/24 00:45 RDW 13.2 % (12.1-15.1) 06/30/24 00:45 Plt Count 253 10^3/cmm (157-399) 06/30/24 00:45 MPV 10.6 fL (7.4-10.4) H 06/30/24 00:45 Neut % (Auto) 56.8 % 06/30/24 00:45 Lymph % (Auto) 32.2 % 06/30/24 00:45 Barnes % (Auto) 8.9 % 06/30/24 00:45 Eos % (Auto) 1.4 % 06/30/24 00:45 Baso % (Auto) 0.4 % 06/30/24 00:45 Neut # (Auto) 5.46 10^3/uL (1.8-7.7) 06/30/24 00:45 Lymph # (Auto) 3.1 10^3/uL (0.8-4.8) 06/30/24 00:45 Barnes # (Auto) 0.9 10^3/uL (0.2-0.9) 06/30/24 00:45 Eos # (Auto) 0.1 10^3/uL (0.0-0.8) 06/30/24 00:45 Baso # (Auto) 0.0 10^3/uL (0.0-0.1) 06/30/24 00:45 Nucleated RBC % (auto) 0 % 06/30/24 00:45 Nucleated RBCs # 0.0 /100WBC 06/30/24 00:45 Sodium 140 mmol/L (136-145) 06/30/24 00:45 Potassium 3.7 mmol/L (3.5-5.1) 06/30/24 00:45 Chloride 104 mmol/L (98-107) 06/30/24 00:45 Carbon Dioxide 23 mmol/L (22-29) 06/30/24 00:45 Anion Gap 16.7 (5-19) 06/30/24 00:45 BUN 5 mg/dL (6-20) L 06/30/24 00:45 Creatinine 0.7 mg/dL (0.7-1.2) 06/30/24 00:45 GFR Calculation 126.9 mL/min (90-130) 06/30/24 00:45 Glucose 103 mg/dL (65-115) 06/30/24 00:45 Calculated Osmolality 288 mOsm/kg (285-295) 06/30/24 00:45 Calcium 9.8 mg/dL (8.5-10.5) 06/30/24 00:45 Total Bilirubin 0.6 mg/dL (0.15-1.2) 06/30/24 00:45 AST 17 U/L (0-40) 06/30/24 00:45 ALT 22 U/L (0-41) 06/30/24 00:45 Alkaline Phosphatase 72 U/L (40-130) 06/30/24 00:45 Total Protein 7.9 g/dL (6.6-8.7) 06/30/24 00:45 Albumin 4.7 g/dL (3.5-5.2) 06/30/24 00:45 Globulin 3.2 g/dL (1.3-4.6) 06/30/24 00:45 TSH 4.60 uIU/mL (0.27-4.20) H 06/30/24 00:45 Urine Color Yellow (Yellow) 06/30/24 00:07 Urine Appearance Clear (CLEAR) 06/30/24 00:07 Urine pH 7.0 (5-7) 06/30/24 00:07 Ur Specific [place] 1.004 (1.005-1.030) L 06/30/24 00:07 Urine Protein Negative (Negative) 06/30/24 00:07 Urine Glucose (UA) Negative (Normal) 06/30/24 00:07 Urine Ketones Negative (Negative) 06/30/24 00:07 Urine Blood Negative (Negative) 06/30/24 00:07 Urine Nitrate Negative (Negative) 06/30/24 00:07 Urine Bilirubin Negative (Negative) 06/30/24 00:07 Urine Urobilinogen 0.2 mg/dL (Negative) 06/30/24 00:07 Ur Leukocyte Esterase Negative (Negative) 06/30/24 00:07 Urine RBC 0-2 /hpf (0-2) 06/30/24 00:07 Urine WBC 0-5 /hpf (0-5) 06/30/24 00:07 Ur Squamous Epith Cells 0-5 /hpf (0-5) 06/30/24 00:07 Amorphous Sediment Not Reportable 06/30/24 00:07 Urine Bacteria None seen /hpf (NONE) 06/30/24 00:07 Hyaline Casts 0-4 /lpf H 06/30/24 00:07 Salicylates < 0.3 mg/dL (3-10) L 06/30/24 00:45 Urine Opiates Screen Negative ng/mL (Negative) 06/30/24 00:07 Acetaminophen < 5.0 ug/mL (10-30) L 06/30/24 00:45 Ur Barbiturates Screen Negative ng/mL (Negative) 06/30/24 00:07 Ur Phencyclidine Scrn Negative ng/mL (Negative) 06/30/24 00:07 Ur Amphetamines Screen Negative ng/mL (Negative) 06/30/24 00:07 U Benzodiazepines Scrn Negative ng/mL (Negative) 06/30/24 00:07 Urine Cocaine Screen Negative ng/mL (Negative) 06/30/24 00:07 U Marijuana (THC) Screen Positive ng/mL (Negative) H 06/30/24 00:07 Ethyl Alcohol < 10 mg/dL (0-10) 06/30/24 00:45 All radiology interpretation(s) finalized by discharge EKG Data EKG 1: Other EKG comments: Time?002?sinus rhythm, rate of 80, no ST segment elevation or depression, intervals within normal limits. QTc = 382 Discharge Plan Discharge Patient Disposition: Admitted As Inpatient Admit Provider: Deon Clemons Clinical Impression: Depression with suicidal ideation Condition: Stable Coding Level of Care Code ED Rectangular Tank Cooper for Natalie Kiran
[2024-06-30 00:20] LABS: Bilirubin Urine Negative (Negative); Blood Urine Negative (Negative); Glucose Urine UA Negative (Normal); Ketones Urine Negative (Negative); Leukocyte Esterase Urine Negative (Negative); Nitrate Urine Negative (Negative); Protein Urine Negative (Negative); Specific Gravity, Urine 1.004 (1.005-1.030); Urine Appearance Clear (CLEAR); Urine Color Yellow (Yellow); Urobilinogen Urine 0.2 mg/dL (Negative)
[2024-06-30 00:22] LABS: Add Urine Microscopic? YES; Bacteria Urine None Seen /hpf; Hyaline Casts Urine 0-4 /lpf; RBC Urine 0-2 /hpf (0-2); Squamous Epithelial Cell Urine 0-5 /hpf (0-5); WBC Urine 0-5 /hpf (0-5)
[2024-06-30 00:49] LABS: Basophils % 0.4 %; Eosinophils # 0.1 10^3/uL (0.0-0.8); Eosinophils % 1.4 %; Hematocrit 42.1 % (37-53); Lymphocytes # 3.1 10^3/uL (0.8-4.8); Lymphocytes % 32.2 %; Mean Corpuscular HGB Conc 33.5 g/dL (30-55); Mean Corpuscular Hemoglobin 30.4 pg (27-33); Mean Corpuscular Volume 90.7 fl (82-101); Mean Platelet Volume 10.6 fL (7.4-10.4); Monocytes # 0.9 10^3/uL (0.2-0.9); Monocytes % 8.9 %; Neutrophils # 5.46 10^3/uL (1.8-7.7); Neutrophils % 56.8 %; Nucleated Red Blood Cells % 0 %; Platelet Count 253 10^3/cmm (157-399); Red Blood Count 4.64 10^6/uL (3.85-5.65); Red Cell Distribution Width 13.2 % (12.1-15.1); White Blood Count 9.61 10^3/uL (3.29-11.43)
[2024-06-30 00:51] LABS: Amphetamines Screen Urine Negative (Negative); Barbiturates Screen Urine Negative (Negative); Benzodiazepines Screen Urine Negative (Negative); Cocaine Screen Urine Negative (Negative); Opiate Screen Urine Negative (Negative); PCP Screen Urine Negative (Negative); THC Screen Urine Positive (Negative)
[2024-06-30 01:25] LABS: Alanine Aminotransferase 22 U/L (0-41); Albumin Level 4.7 g/dL (3.5-5.2); Alkaline Phosphatase 72 U/L (40-130); Anion Gap 16.7 (5-19); Aspartate Amino Transferase 17 U/L (0-40); Blood Urea Nitrogen 5 mg/dL (6-20); Calcium 9.8 mg/dL (8.5-10.5); Carbon Dioxide 23 mmol/L (22-29); Chloride 104 mmol/L (98-107); Creatinine Clr Calc Pharmacy 140.6702; Globulin 3.2 g/dL (1.3-4.6); Glomerular Filtration Rate 126.9 mL/min (90-130); Glucose 103 mg/dL (65-115); Osmolality Calculated 288 mOsm/kg (285-295); Potassium 3.7 mmol/L (3.5-5.1); Sodium 140 mmol/L (136-145); Total Bilirubin 0.6 mg/dL (0.15-1.2); Total Protein 7.9 g/dL (6.6-8.7)
[2024-06-30 01:26] LABS: Acetaminophen < 5.0 ug/mL (10-30); Alcohol Level < 10 mg/dL (0-10); Salicylate < 0.3 mg/dL (3-10)
--- NOTE | 2024-06-30 02:39 | PC.NURSE ---
96 Hour Involuntary Hold Patient Rights have been reviewed with the patient and a copy of the same has been provided to him. Campaign Consultant Willy Lane was present at the bedside at the time of presentation of Rights.
[2024-06-30 03:37] VITALS: BP 127/80; PULSE 79; RESP 20; O2SAT 97
[2024-06-30 03:59] VITALS: BP 133/99; PULSE 75; RESP 17; TEMP 36.5; O2SAT 98
[2024-06-30 04:02] VITALS: BP 128/79; PULSE 78; RESP 16; O2SAT 99
[2024-06-30 06:00] VITALS: BP 133/99; PULSE 75; RESP 17; TEMP 36.5; O2SAT 98
[2024-06-30] MEDS: hyDROXYzine 25 mg Capsule 50 MG PO ×2 (07:56→19:16)
[2024-06-30] MEDS: BuSPIRONE 10 mg Tablet PO ×2 (07:56→16:59)
[2024-06-30] MEDS: divalproex ER 500 mg Tablet (24H) PO ×2 (07:56→16:58)
[2024-06-30] MEDS: buPROPion XL (24 HR) 150 mg Tablet PO (07:56)
[2024-06-30 13:55] VITALS: BP 93/53; PULSE 60; RESP 16; TEMP 36.9; O2SAT 96
--- NOTE | 2024-06-30 15:04 | W.PM.NPUH&PS ---
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 2014, but was just here 18 days ago but before that his most recent was January or February of last year. There is a history of major depressive disorder with suicidal ideation and self-injurious behavior, including burning with cigarettes. There is also a presence of anxiety, paranoia, and auditory hallucinations. The patient has a history of substance use, including cannabis and alcohol, which may contribute to the psychiatric symptoms. The patient has been on multiple psychiatric medications in the past, he was started on Depakote ER 500 mg last hospitalization which was just increased by his outpatient doctor to 500 mg ER twice daily and he reports continuing his medications as prescribed. The patient has a complex psychiatric history with multiple hospitalizations and suicide attempts, indicating a severe and persistent mental health condition. 1. Continue current medications. Increase Wellbutrin XL to 300 mg p.o. daily in the morning. 2. Continue every 15 minute checks for safety. 3. Encourage individual, group and milieu therapies. 4. Encourage sober living treatment after discharge at the highest level of care to which he is willing to commit. 5. Get collateral information. 6. Evaluate against the backdrop of the 96-hour hold. PDMP PDMP Reviewed: Not Reviewed Involuntary Hold Information Hold Status: Legal Status: 96 Hour Hold Date/Time Hold Expires: 07/06/24@02:30 Attestations NPU Medical Necessity Statement*: Inpatient hospitalization is medically necessary and the clinically appropriate intervention at this time. We will monitor/initiate medications and make changes as indicated. Likely length of stay 5-7 days. Coding Level of Care Code Acute Code for [facility] Fwd Diagnoses Anxiety F41.9 Substance abuse F19.10 Suicidal ideation R45.851 Major depressive disorder, recurrent F33.9 Paranoia F22 Cannabis use disorder F12.90 Alcohol use F10.90
--- NOTE | 2024-06-30 16:58 | PC.OT ---
OT jessy attempted with pt becoming irritated 1/2 way through evaluation. Pt states people have already asked me these questions and I don't like repeating myself. Will attempt again at later time.
[2024-06-30] MEDS: trazodone 50 mg Tablet 100 MG PO (19:15)
[2024-06-30 21:03] VITALS: BP 116/82; PULSE 83; RESP 18; TEMP 36.7; O2SAT 99
[2024-07-01 06:00] VITALS: BP 88/46; PULSE 60; RESP 18; O2SAT 97
[2024-07-01] MEDS: buPROPion XL (24 HR) 150 mg Tablet PO (09:48)
[2024-07-01] MEDS: divalproex ER 500 mg Tablet (24H) PO ×2 (09:48→18:44)
[2024-07-01] MEDS: BuSPIRONE 10 mg Tablet PO ×2 (09:48→18:44)
--- NOTE | 2024-07-01 14:06 | P.NPUPN_ITS ---
Subjective NPU 2 Subjective: Patient presented today reporting that he is feeling irritable. He was very frustrated because he felt like one of the nurses whom he could not name had supposedly talk to his significant other and given her some advice that he reports was to block him on her phone or to not respond to him and he was very upset that this kind of advice would be given. We discussed that this medical underwriter was not on any phone call and could not speak to the authenticity of his report and we discussed different ways that a conversation could have taken place that would not have been a recommendation by the treatment team. He had talked about transferring and we discussed the fact that that does not occur without some kind of service provided by the receiving hospital that cannot be provided by us. Otherwise he denied any side effects to his medications. Mental Status Exam 2 MSE Comments: This is an overweight versus obese white male in hospital scrubs with limited grooming and eye contact. No abnormal movements except for psychomotor retardation. Cooperative with exam in moderate to extreme distress. Speech was slightly increased rate and volume. Mood described as upset, affect congruent and irritable. Thought process organized. Thought content: Patient endorsed some suicidal ideation but denied homicidal ideation, there were no delusions noted but reports of paranoia, he denied current auditory or visual hallucinations. Reports having suicidal thoughts, with a history of multiple suicide attempts, including overdoses and self-harm by cutting and burning with cigarettes. Denies any thoughts of harming others. Experiences visual hallucinations and paranoia. Reports significant anxiety, using cannabis to manage symptoms, and ongoing depression with a history of antidepressant use. Stressors include homelessness but he is in a homeless halfway, difficulty with his personal relationship and difficulty maintaining employment due to criminal history. Attention and concentration were limited and memory was mostly reliable but no more formally tested. He is alert and oriented times person and place. Insight, judgment and impulse control were limited versus impaired. Vitals/I&O/Wt Last Vital Signs Temp 98.0 F 06/30/24 21:03 Pulse 60 07/01/24 06:00 Resp 18 07/01/24 06:00 BP 88/46 07/01/24 06:00 Pulse Ox 97 07/01/24 06:00 O2 Del Method Room Air 06/30/24 13:55 Weight last 48 hrs Weight 79.832 kg Data NPU 06/30/24 00:45 06/30/24 00:45 A&P Assessment and plan (1) Anxiety: (2) Substance abuse: (3) Suicidal ideation: (4) Major depressive disorder, recurrent: (5) Paranoia: (6) Cannabis use disorder: (7) Alcohol use: Plan This is a 38-year-old white male with a long history of mental health and addiction issues with endorsement of trauma with genetic loading for mental health and addiction issues who presents with frequent inpatient hospitalizations which she had not had any here since 2014, but was just here 18 days ago but before that his most recent was January or February of last year. There is a history of major depressive disorder with suicidal ideation and self- injurious behavior, including burning with cigarettes. There is also a presence of anxiety, paranoia, and auditory hallucinations. The patient has a history of substance use, including cannabis and alcohol, which may contribute to the psychiatric symptoms. The patient has been on multiple psychiatric medications in the past, he was started on Depakote ER 500 mg last hospitalization which was just increased by his outpatient doctor to 500 mg ER twice daily and he reports continuing his medications as prescribed. The patient has a complex psychiatric history with multiple hospitalizations and suicide attempts, indicating a severe and persistent mental health condition. 1. Continue current medications. Increase Wellbutrin XL to 300 mg p.o. daily in the morning. 2. Continue every 15 minute checks for safety. 3. Encourage individual, group and milieu therapies. 4. Encourage sober living treatment after discharge at the highest level of care to which he is willing to commit. 5. Get collateral information. 6. Evaluate against the backdrop of the 96-hour hold. PDMP PDMP Reviewed: Not Reviewed Involuntary Hold Information 2 Hold Status: Legal Status: 96 Hour Hold Date/Time Hold Expires: 0 07/06/24@02:30 Attestations NPU 2 Medical Necessity Statement*: Inpatient hospitalization is medically necessary and the clinically appropriate intervention at this time. We will monitor/initiate medications and make changes as indicated. Likely length of stay 4-6 days. Coding Level of Care Code Acute Code for [facility] Fwd Diagnoses Anxiety F41.9 Substance abuse F19.10 Suicidal ideation R45.851 Major depressive disorder, recurrent F33.9 Paranoia F22 Cannabis use disorder F12.90 Alcohol use F10.90
--- NOTE | 2024-07-01 15:12 | PC.NURSE ---
Pt approached the nurses station and was ranting about being transferred from this facility. The pt stated that he has 2 mandated reporters to write statements about what is being done here in this hospital unit. This nurse asked what specifically was being done or better yet not done. Pt just made his demands to see the doctor and to be transferred from this hospital. This nurse stated that she would let the Doctor know his wishes.
--- NOTE | 2024-07-01 15:17 | PC.NURSE ---
Pt has been rude today to the FIELD SUPPORT TECHNICIAN on the [facility], calling her a Cunt among other names and just franklin persaud in general.
--- NOTE | 2024-07-01 15:19 | PC.NURSE ---
Pt refused to have his vitals taken until he speaks with the Doctor.
--- NOTE | 2024-07-01 15:38 | PC.NURSE ---
Pt. asked this MOTHER SUPERIOR to ask the to speak to him. Pt. later accused this MOTHER SUPERIOR of not doing her job. Pt. then was heard by Management Aide calling her a cunt. Pt. then told MOTHER SUPERIOR it would best for her if she fucking stayed away from him.
[2024-07-01] MEDS: trazodone 50 mg Tablet 100 MG PO (20:12)
[2024-07-01] MEDS: ibuprofen 600 mg Tablet PO (20:12)
[2024-07-01 21:08] VITALS: BP 119/70; PULSE 70; RESP 18; TEMP 36.9; O2SAT 99
[2024-07-02 06:00] VITALS: BP 97/60; PULSE 58; RESP 16; O2SAT 98
[2024-07-02] MEDS: divalproex ER 500 mg Tablet (24H) PO ×2 (10:15→17:48)
[2024-07-02] MEDS: BuSPIRONE 10 mg Tablet PO ×2 (10:15→17:48)
[2024-07-02] MEDS: buPROPion XL (24 HR) 150 mg Tablet 300 MG PO (10:15)
--- NOTE | 2024-07-02 13:15 | W.PM.NPUPNS ---
Subjective NPU Subjective: Patient presented today reporting that he is doing better than yesterday. He has had less irritability per staff reports and direct observation. He reports that he had more reasonable thoughts about the encounter from the other day and realizes that people are trying to help him. He reports that he has been in contact with [facility] and they report that they are going to hold his bed until he is ready to return and he reports that unlike last time he plans to stay until we all agree that he is ready to leave. He denied any side effects to the medication. Mental Status Exam MSE Comments: This is an overweight versus obese white male in hospital scrubs with limited grooming and eye contact. No abnormal movements except for psychomotor retardation. Cooperative with exam in moderate to extreme distress. Speech was slightly increased rate and volume. Mood described as better than yesterday, affect congruent but less irritable. Thought process organized. Thought content: Patient endorsed some suicidal ideation but denied homicidal ideation, there were no delusions noted but reports of paranoia, he denied current auditory or visual hallucinations. Reports having suicidal thoughts, with a history of multiple suicide attempts, including overdoses and self-harm by cutting and burning with cigarettes. Denies any thoughts of harming others. Experiences visual hallucinations and paranoia. Reports significant anxiety, using cannabis to manage symptoms, and ongoing depression with a history of antidepressant use. Stressors include homelessness but he is in a homeless halfway, difficulty with his personal relationship and difficulty maintaining employment due to criminal history. Attention and concentration were limited and memory was mostly reliable but no more formally tested. He is alert and oriented times person and place. Insight, judgment and impulse control were limited versus impaired. Vitals/I&O/Wt Last Vital Signs Temp 98.4 F 07/01/24 21:08 Pulse 58 L 07/02/24 06:00 Resp 16 07/02/24 06:00 BP 97/60 07/02/24 06:00 Pulse Ox 98 07/02/24 06:00 O2 Del Method Room Air 06/30/24 13:55 07/01/24 07/02/24 07/02/24 22:59 06:59 14:59 Intake Total 0 / 0 Balance 0 / 0 Weight last 48 hrs Weight 80.286 kg Data NPU 06/30/24 00:45 06/30/24 00:45 A&P Assessment and plan (1) Anxiety: (2) Substance abuse: (3) Suicidal ideation: (4) Major depressive disorder, recurrent: (5) Paranoia: (6) Cannabis use disorder: (7) Alcohol use: Plan This is a 38-year-old white male with a long history of mental health and addiction issues with endorsement of trauma with genetic loading for mental health and addiction issues who presents with frequent inpatient hospitalizations which she had not had any here since 2014, but was just here 18 days ago but before that his most recent was January or February of last year. There is a history of major depressive disorder with suicidal ideation and self-injurious behavior, including burning with cigarettes. There is also a presence of anxiety, paranoia, and auditory hallucinations. The patient has a history of substance use, including cannabis and alcohol, which may contribute to the psychiatric symptoms. The patient has been on multiple psychiatric medications in the past, he was started on Depakote ER 500 mg last hospitalization which was just increased by his outpatient doctor to 500 mg ER twice daily and he reports continuing his medications as prescribed. The patient has a complex psychiatric history with multiple hospitalizations and suicide attempts, indicating a severe and persistent mental health condition. 1. Continue current medications. Increased Wellbutrin XL to 300 mg p.o. daily in the morning. 2. Continue every 15 minute checks for safety. 3. Encourage individual, group and milieu therapies. 4. Encourage sober living treatment after discharge at the highest level of care to which he is willing to commit. 5. Get collateral information. 6. Evaluate against the backdrop of the 96-hour hold. PDMP PDMP Reviewed: Not Reviewed Involuntary Hold Information Hold Status: Legal Status: 96 Hour Hold Date/Time Hold Expires: 07/06/24@02:30 Attestations U Medical Necessity Statement*: Inpatient hospitalization is medically necessary and the clinically appropriate intervention at this time. We will monitor/initiate medications and make changes as indicated. Likely length of stay 3-5 days. Coding Level of Care Code Acute Code for [facility] Fwd Diagnoses Anxiety F41.9 Substance abuse F19.10 Suicidal ideation R45.851 Major depressive disorder, recurrent F33.9 Paranoia F22 Cannabis use disorder F12.90 Alcohol use F10.90
[2024-07-02 14:00] VITALS: BP 119/67; PULSE 68; RESP 18; O2SAT 98
[2024-07-02] MEDS: calcium carbonate 500 mg Chew Tablet 1000 MG PO (18:21)
--- NOTE | 2024-07-02 18:46 | PC.NURSE ---
Pt has had a really good day, pt has turned his attitude around. Pt up at the nurses desk having friendly conversations and smiling.
[2024-07-02] MEDS: trazodone 50 mg Tablet PO (20:14)
[2024-07-02 20:30] VITALS: BP 126/83; PULSE 66; RESP 18; TEMP 36.4; O2SAT 99
[2024-07-03 06:00] VITALS: BP 115/73; PULSE 69; RESP 17; O2SAT 98
[2024-07-03] MEDS: BuSPIRONE 10 mg Tablet PO ×2 (09:11→18:24)
[2024-07-03] MEDS: divalproex ER 500 mg Tablet (24H) PO ×2 (09:11→18:24)
[2024-07-03] MEDS: buPROPion XL (24 HR) 150 mg Tablet 300 MG PO (09:11)
--- NOTE | 2024-07-03 13:50 | P.NPUPN_ITS ---
Subjective NPU 2 Subjective: Patient presented today reporting that he is doing fine. He reports that the social work team did speak to [facility] which reiterated that he would have a bed until he left the hospital. He reports that he is feeling great but is prepared to stay until the treatment team feels he is ready to go. He reports that the medication changes have been effective and he feels much better and more positive. We discussed the likelihood of discharge in the next 48 hours and he denied any side effects of his medication. Mental Status Exam 2 MSE Comments: This is an overweight versus obese white male in hospital scrubs with limited grooming and eye contact. No abnormal movements except for psychomotor retardation. Cooperative with exam in no acute distress. Speech was more normal rate and volume. Mood described as better than yesterday, affect congruent. Thought process organized. Thought content: Patient endorsed some suicidal ideation but denied homicidal ideation, there were no delusions noted but reports of paranoia, he denied current auditory or visual hallucinations. Attention and concentration were limited and memory was mostly reliable but no more formally tested. He is alert and oriented times person and place. Insight and judgment are limited but improving and impulse control is limited.. Vitals/I&O/Wt Last Vital Signs Temp 97.6 F 07/02/24 20:30 Pulse 69 07/03/24 06:00 Resp 17 07/03/24 06:00 BP 115/73 07/03/24 06:00 Pulse Ox 98 07/03/24 06:00 O2 Del Method Room Air 07/02/24 14:00 Weight last 48 hrs Weight 80.286 kg Data NPU 06/30/24 00:45 06/30/24 00:45 A&P Assessment and plan (1) Anxiety: (2) Substance abuse: (3) Suicidal ideation: (4) Major depressive disorder, recurrent: (5) Paranoia: (6) Cannabis use disorder: (7) Alcohol use: Plan This is a 38-year-old white male with a long history of mental health and addiction issues with endorsement of trauma with genetic loading for mental health and addiction issues who presents with frequent inpatient hospitalizations which she had not had any here since 2014, but was just here 18 days ago but before that his most recent was January or February of last year. There is a history of major depressive disorder with suicidal ideation and self- injurious behavior, including burning with cigarettes. There is also a presence of anxiety, paranoia, and auditory hallucinations. The patient has a history of substance use, including cannabis and alcohol, which may contribute to the psychiatric symptoms. The patient has been on multiple psychiatric medications in the past, he was started on Depakote ER 500 mg last hospitalization which was just increased by his outpatient doctor to 500 mg ER twice daily and he reports continuing his medications as prescribed. The patient has a complex psychiatric history with multiple hospitalizations and suicide attempts, indicating a severe and persistent mental health condition. 1. Continue current medications. Increased Wellbutrin XL to 300 mg p.o. daily in the morning. 2. Continue every 15 minute checks for safety. 3. Encourage individual, group and milieu therapies. 4. Encourage sober living treatment after discharge at the highest level of care to which he is willing to commit. 5. Get collateral information. 6. Evaluate against the backdrop of the 96-hour hold. PDMP PDMP Reviewed: Not Reviewed Involuntary Hold Information 2 Hold Status: Legal Status: 96 Hour Hold Date/Time Hold Expires: 0 07/06/24@02:30 Attestations NPU 2 Medical Necessity Statement*: Inpatient hospitalization is medically necessary and the clinically appropriate intervention at this time. We will monitor/initiate medications and make changes as indicated. Likely length of stay 1-4 days. Coding Level of Care Code Acute Code for [facility] Fwd Diagnoses Anxiety F41.9 Substance abuse F19.10 Suicidal ideation R45.851 Major depressive disorder, recurrent F33.9 Paranoia F22 Cannabis use disorder F12.90 Alcohol use F10.90
[2024-07-03 14:00] VITALS: BP 150/74; PULSE 78; RESP 16; TEMP 37; O2SAT 98
[2024-07-03] MEDS: calcium carbonate 500 mg Chew Tablet 1000 MG PO (14:43)
[2024-07-03] MEDS: trazodone 50 mg Tablet 100 MG PO (20:54)
[2024-07-03] MEDS: hyDROXYzine 25 mg Capsule 50 MG PO (20:54)
[2024-07-03 21:07] VITALS: BP 136/92; PULSE 71; RESP 20; TEMP 36.8; O2SAT 99
[2024-07-04 06:00] VITALS: BP 105/69; PULSE 69; RESP 16; TEMP 36.9; O2SAT 98
[2024-07-04] MEDS: BuSPIRONE 10 mg Tablet PO ×2 (07:52→17:32)
[2024-07-04] MEDS: divalproex ER 500 mg Tablet (24H) PO ×2 (07:52→17:32)
[2024-07-04] MEDS: buPROPion XL (24 HR) 150 mg Tablet 300 MG PO (07:53)
[2024-07-04 14:00] VITALS: BP 115/77; PULSE 80; RESP 16; TEMP 36.6; O2SAT 96
--- NOTE | 2024-07-04 17:49 | P.NPUPN_ITS ---
Subjective NPU 2 Subjective: Patient presented today reporting that he is feeling better and endorsed an openness to consider staying until the treatment team feels he is ready. We discussed the possibility of discharge tomorrow if things continue at this rate. He only requested assurance that he would build to get his medications. Otherwise he denied any new issues he denied any side effects of the medication. Mental Status Exam 2 MSE Comments: This is an overweight versus obese white male in hospital scrubs with adequate grooming and eye contact. No abnormal movements. Cooperative with exam in no acute distress. Speech was more normal rate and volume. Mood described as better than yesterday, affect congruent. Thought process organized. Thought content: Patient denied suicidal or homicidal ideation, there were no delusions reported or noted, he denied current auditory or visual hallucinations. Attention and concentration were intact and memory was mostly reliable but none were formally tested. He is alert and oriented times 3. Insight and judgment are limited but improving and impulse control is limited, but improving. Vitals/I&O/Wt Last Vital Signs Temp 98.4 F 07/04/24 19:55 Pulse 84 07/04/24 19:55 Resp 18 07/04/24 19:55 BP 109/69 07/04/24 19:55 Pulse Ox 97 07/04/24 19:55 O2 Del Method Room Air 07/04/24 19:55 Data NPU 06/30/24 00:45 06/30/24 00:45 A&P Assessment and plan (1) Anxiety: (2) Substance abuse: (3) Suicidal ideation: (4) Major depressive disorder, recurrent: (5) Paranoia: (6) Cannabis use disorder: (7) Alcohol use: Plan This is a 38-year-old white male with a long history of mental health and addiction issues with endorsement of trauma with genetic loading for mental health and addiction issues who presents with frequent inpatient hospitalizations which she had not had any here since 2014, but was just here 18 days ago but before that his most recent was January or February of last year. There is a history of major depressive disorder with suicidal ideation and self- injurious behavior, including burning with cigarettes. There is also a presence of anxiety, paranoia, and auditory hallucinations. The patient has a history of substance use, including cannabis and alcohol, which may contribute to the psychiatric symptoms. The patient has been on multiple psychiatric medications in the past, he was started on Depakote ER 500 mg last hospitalization which was just increased by his outpatient doctor to 500 mg ER twice daily and he reports continuing his medications as prescribed. The patient has a complex psychiatric history with multiple hospitalizations and suicide attempts, indicating a severe and persistent mental health condition. 1. Continue current medications. Increased Wellbutrin XL to 300 mg p.o. daily in the morning. 2. Continue every 15 minute checks for safety. 3. Encourage individual, group and milieu therapies. 4. Encourage sober living treatment after discharge at the highest level of care to which he is willing to commit. 5. Get collateral information. 6. Evaluate against the backdrop of the 96-hour hold. PDMP PDMP Reviewed: Not Reviewed Involuntary Hold Information 2 Hold Status: Legal Status: 96 Hour Hold Date/Time Hold Expires: 0 07/06/24@02:30 Attestations NPU 2 Medical Necessity Statement*: Inpatient hospitalization is medically necessary and the clinically appropriate intervention at this time. We will monitor/initiate medications and make changes as indicated. Likely length of stay 1 day. Coding Level of Care Code Acute Code for [facility] Fwd Diagnoses Anxiety F41.9 Substance abuse F19.10 Suicidal ideation R45.851 Major depressive disorder, recurrent F33.9 Paranoia F22 Cannabis use disorder F12.90 Alcohol use F10.90
[2024-07-04 19:55] VITALS: BP 109/69; PULSE 84; RESP 18; TEMP 36.9; O2SAT 97
[2024-07-04] MEDS: trazodone 50 mg Tablet 100 MG PO (20:05)
[2024-07-04] MEDS: hyDROXYzine 25 mg Capsule 50 MG PO (20:06)
[2024-07-05 06:00] VITALS: BP 101/69; PULSE 64; RESP 18; TEMP 36.4; O2SAT 98
--- NOTE | 2024-07-05 09:20 | W.PM.NPUDCS ---
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 Barbiturates Sc reen Negative ng/mL (N egative) 06/30/24 00:07 Ur Phencyclidine S crn Negative ng/mL (N egative) 06/30/24 00:07 Ur Amphetamines Sc reen Negative ng/mL (N egative) 06/30/24 00:07 U Benzodiazepines Scrn Negative ng/mL (N egative) 06/30/24 00:07 Urine Cocaine Scre en Negative ng/mL (N egative) 06/30/24 00:07 U Marijuana (THC) Screen Positive ng/mL (N egative) H 06/30/24 00:07 Ethyl Alcohol < 10 mg/dL (0-10) 06/30/24 00:45 Vitals: Last Vital Signs Temp 97.6 F 07/05/24 06:00 Pulse 64 07/05/24 06:00 Resp 18 07/05/24 06:00 BP 101/69 07/05/24 06:00 Pulse Ox 98 07/05/24 06:00 O2 Del Method Room Air 07/05/24 06:00 Discharge Plan Discharge Patient Disposition: Home Condition: Stable Prescriptions: New bupropion HCl 150 mg Tablet Extended Release 24 Hr 300 mg PO DAILY 30 Days Qty: 60 1RF Rx Instructions: can dispense 300 mg tablet instead Continued buspirone 10 mg tablet 10 mg PO BID Qty: 60 2RF hydroxyzine HCl 50 mg tablet 50 mg PO QID PRN (Reason: anxiety/insomnia) Qty: 120 2RF divalproex 500 mg tablet extended release 24 hr 500 mg PO BID 30 Days Qty: 60 2RF trazodone 50 mg tablet 100 mg PO BEDTIME PRN (Reason: Sleep) 30 Days Qty: 60 2RF Discontinued bupropion HCl 150 mg tablet extended release 24 hr 150 mg PO DAILY 30 Days Qty: 30 2RF Discharge Orders: Discharge Order (Routine); Ordered 07/05/24 Ordered By: Deon Clemons Referrals: [facility] Care Insurance [Other] Pepito Mann MD [Primary Care Provider] - Chidi Jackson MD [Physician] - 07/10/24 3:15 pm (Follow up. ) Discharge Diet: Regular Discharge Activity: Resume usual activity Patient Instructions: Bupropion (By mouth) (Zyban, Wellbutrin XL, Wellbutrin SR, Wellbutrin), Depression (GEN), Abuse of Alcohol (DC), Opioid Safety Discharge Attestations NPU Time Spent in Discharge Care*: less than 30 min Specific Discharge Activities: Specific discharge activities: educating patient, discussing with patient case coordinator/social workers/dc planners, documenting/other paperwork and evaluating patient/reviewing data Coding Level of Care Code Acute Code for Chg Fwd Diagnoses Anxiety F41.9 Substance abuse F19.10 Suicidal ideation R45.851 Major depressive disorder, recurrent F33.9 Paranoia F22 Cannabis use disorder F12.90 Alcohol use F10.90
[2024-07-05] MEDS: BuSPIRONE 10 mg Tablet PO (09:24)
[2024-07-05] MEDS: buPROPion XL (24 HR) 150 mg Tablet 300 MG PO (09:24)
[2024-07-05] MEDS: divalproex ER 500 mg Tablet (24H) PO (09:24)
[2024-07-05 10:56] VITALS: BP 101/69; PULSE 64; RESP 18; TEMP 36.4; O2SAT 98
== END 2024-07-05 11:18 | disposition home or self-care (01) | DRG 885 ==
LOC: ER 06-30 00:29 → NP 06-30 02:56
PROVIDERS: Admitting Provider Psychiatry & Neurology Psychiatry; Emergency Provider Student in an Organized Health Care Education/Training Program; PCP Family Medicine; Visit Provider Psychiatry & Neurology Psychiatry
DX: F33.9 Major depressive disorder, recurrent, unspecified (principal); R45.851 Suicidal ideations; F41.9 Anxiety disorder, unspecified; F22 Delusional disorders; F12.90 Cannabis use, unspecified, uncomplicated; F10.90 Alcohol use, unspecified, uncomplicated; F17.210 Nicotine dependence, cigarettes, uncomplicated; E66.9 Obesity, unspecified; Z68.29 Body mass index [BMI] 29.0-29.9, adult; F79 Unspecified intellectual disabilities; F17.220 Nicotine dependence, chewing tobacco, uncomplicated
CPT/HCPCS: 36415; 80053; 80306; 80307; 81001; 84443; 85025; 93005; 97165; 99285; J9999

== ENCOUNTER 2024-08-03 19:59 | Inpatient (IN) | payer OTHER, SELFPAY ==
[2022-12-24 16:38] VITALS: BP 130/84; BMI 30.8
[2024-08-03 20:02] VITALS: BP 143/87; PULSE 75; RESP 18; TEMP 36.9; O2SAT 96; BMI 28.3
--- NOTE | 2024-08-03 20:16 | ECG_ITS ---
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 Measurements Intervals [place] Rate: 73 P: 30 [place]: 177 QRS: 25 QRSD: 103 T: 12 QT: 367 QTc: 405 Interpretive Statements SINUS RHYTHM Compared to ECG 06/30/2024 00:02:30 Left posterior fascicular block no longer present T-wave abnormality no longer present Electronically Signed On 08-04-2024 16:27:52 CDT by Holger Crump M.D. [email or web address]
[2024-08-03 20:30] LABS: Bilirubin Urine Negative (Negative); Blood Urine Negative (Negative); Glucose Urine UA Negative (Normal); Ketones Urine Negative (Negative); Leukocyte Esterase Urine Negative (Negative); Nitrate Urine Negative (Negative); Protein Urine Negative (Negative); Specific Gravity, Urine 1.014 (1.005-1.030); Urine Appearance Cloudy (CLEAR); Urine Color Yellow (Yellow); pH Urine 6.5 (5-7)
[2024-08-03 20:32] LABS: Add Urine Microscopic? YES; Bacteria Urine None Seen /hpf; RBC Urine 0-2 /hpf (0-2); Squamous Epithelial Cell Urine 0-5 /hpf (0-5); WBC Urine 0-5 /hpf (0-5)
[2024-08-03 20:38] LABS: Amphetamines Screen Urine Negative (Negative); Barbiturates Screen Urine Negative (Negative); Benzodiazepines Screen Urine Negative (Negative); Cocaine Screen Urine Negative (Negative); Opiate Screen Urine Negative (Negative); PCP Screen Urine Negative (Negative); THC Screen Urine Positive (Negative)
--- NOTE | 2024-08-03 20:48 | W.ED.PSYCHS ---
HPI - Psych General: Chief Complaint: Psychiatric Symptoms Stated Complaint: SI Time Seen by Provider: 08/03/24 20:03 History of Present Illness: 38-year-old man with a history of depression who presents emergency room with suicidal thoughts. He says he has not been taking his medications today. He says there has been a lot of things going on in his life that are worse than things. He does not want to elaborate. I asked him if he has a plan and he says he does but he does not want to talk about it. He has been admitted for this in the past. Related Data Previous Rx's ?Medication ?Instructions ?Recorded buspirone 10 mg tablet 10 mg PO BID #60 tabs 06/27/24 divalproex 500 mg tablet,extended 500 mg PO BID 30 days #60 tabs 06/27/24 release 24 hr hydroxyzine HCl 50 mg tablet 50 mg PO QID PRN anxiety/insomnia 06/27/24 #120 tabs trazodone 50 mg tablet 100 mg (2 x 50 mg) PO BEDTIME PRN 06/27/24 Sleep 30 days #60 tabs bupropion HCl 150 mg 24 hr tablet, 300 mg (2 x 150 mg) PO DAILY 30 07/05/24 extended release days #60 tabs Allergies Allergy/AdvReac Type Severity Reaction Status Date / Time No Known Allergies Allergy Verified 06/27/24 13:33 Review of Systems Narrative: Constitutional symptoms: Negative except as documented in HPI. Skin symptoms: Negative except as documented in HPI. Eye symptoms: Negative except as documented in HPI. ENMT symptoms: Negative except as documented in HPI. Respiratory symptoms: Negative except as documented in HPI. Cardiovascular symptoms: Negative except as documented in HPI. Gastrointestinal symptoms: Negative except as documented in HPI. Genitourinary symptoms: Negative except as documented in HPI. Musculoskeletal symptoms: Negative except as documented in HPI. Neurologic symptoms: Negative except as documented in HPI. Psychiatric symptoms: Negative except as documented in HPI. Endocrine symptoms: Negative except as documented in HPI. [facility] ED PFSH: Medical History Hyperlipidemia Smoking Diabetes Metformin discontinued due to diarrhea. Psychiatric care Released from snf Substance abuse Intellectual disability Anxiety Psychiatric care Family History Other Diabetes Social History Smoking and tobacco/nicotine status: current every day tobacco/nicotine user cigarettes Packs smoked per day: 1 Years cigarettes smoked: 18 and smokeless tobacco Smokeless tobacco user: chewing tobacco Smokeless tobacco details: a can last about a week Quit status (tobacco/nicotine): considering quitting Second hand smoke exposure: Yes Alcohol intake: never Substance/Drug Use: never Adopted: No Caregiver/support person: Yes Lives independently: Yes Household members: family and none Housing: Apartment Marital status: Legally Number of children: 0 Number of grandchildren: 0 Highest education level completed: 9th Grade Current occupational status: unemployed Pets and animals: No Leisure activites: sports, exercise, music, hunting, fishing and other Leisure activities details: helps step dad around the house and watch movies Sexually active: No Do you think of yourself as: Straight/Heterosexual Current gender identity: Male Tiffanie/Anabaptist: Presybeterian Special tiffanie needs: No Agree to transfusion: Yes Physical Exam Narrative: EXAM NARRATIVE: General: Alert. no acute distress Skin: Warm, dry Head: Normocephalic, atraumatic. Neck: Supple, trachea midline. Eye: Extraocular movements are intact. Ears, nose, mouth and throat: Oral mucosa moist. Cardiovascular: Regular rate and rhythm, Normal peripheral perfusion. Respiratory: Lungs are clear to auscultation, respirations are non-labored, breath sounds are equal, Symmetrical chest wall expansion. Gastrointestinal: Soft, Nontender, Non distended Musculoskeletal: Normal ROM, no deformity. Neurological: Alert and oriented. No focal neurological deficit observed. Psychiatric: Cooperative, depressed, expresses suicidal ideation. Course Vital Signs: Vital signs: Vital Signs Temperature 98.5 F 08/03/24 20:02 Pulse Rate 75 08/03/24 20:02 Respiratory Rate 18 08/03/24 20:02 Blood Pressure 143/87 08/03/24 20:02 Pulse Oximetry 96 08/03/24 20:02 Oxygen Delivery Me thod Room Air 08/03/24 20:02 MDM - Psych Medical Decision Making Differential diagnosis: Patient with reported depression and suicidal ideation. concerns for infection, alcohol intoxication, cardiac issues or other medical problems prior to psychiatric admission. Workup: labwork, ekg ordered to evaluate the pathologies and to clear the patient medically prior to psychiatric admission Consultation: I spoke with Dr. Clemons who agrees to admission. Assessment and plan: Suicidal ideation -Admission to neuropsychiatric unit for continued evaluation and treatment. - All lab work was reviewed and interpreted personally by myself, the ER physician - Evaluation and treatment of this problem were appropriate in the emergency setting Lab Data 08/03/24 20:45 08/03/24 20:45 Laboratory Results WBC 8.95 10^3/uL (3.29-11.43) 08/03/24 20:45 RBC 4.63 10^6/uL (3.85-5.65) 08/03/24 20:45 Hgb 14.20 g/dL (11.27-16.99) 08/03/24 20:45 Hct 43.3 % (37-53) 08/03/24 20:45 MCV 93.5 fl (82-101) 08/03/24 20:45 MCH 30.7 pg (27-33) 08/03/24 20:45 MCHC 32.8 g/dL (30-55) 08/03/24 20:45 RDW 12.9 % (12.1-15.1) 08/03/24 20:45 Plt Count 256 10^3/cmm (157-399) 08/03/24 20:45 MPV 11.1 fL (7.4-10.4) H 08/03/24 20:45 Neut % (Auto) 56.5 % 08/03/24 20:45 Lymph % (Auto) 33.0 % 08/03/24 20:45 [place] % (Auto) 8.2 % 08/03/24 20:45 Eos % (Auto) 1.5 % 08/03/24 20:45 Baso % (Auto) 0.7 % 08/03/24 20:45 Neut # (Auto) 5.07 10^3/uL (1.8-7.7) 08/03/24 20:45 Lymph # (Auto) 3.0 10^3/uL (0.8-4.8) 08/03/24 20:45 [place] # (Auto) 0.7 10^3/uL (0.2-0.9) 08/03/24 20:45 Eos # (Auto) 0.1 10^3/uL (0.0-0.8) 08/03/24 20:45 Baso # (Auto) 0.1 10^3/uL (0.0-0.1) 08/03/24 20:45 Nucleated RBC % (auto) 0 % 08/03/24 20: Nucleated RBCs # 0.0 /100WBC 08/03/24 20:45 Urine Color Yellow (Yellow) 08/03/24 20: Urine Appearance Cloudy (CLEAR) A 08/03/24 20: Urine pH 6.5 (5-7) 08/03/24 20: Ur Specific [place] 1.014 (1.005-1.030) 08/03/24 20: Urine Protein Negative (Negative) 08/03/24: Urine Glucose (UA) Negative (Normal) 08/03/24: Urine Ketones Negative (Negative) 08/03/24 20: Urine Blood Negative (Negative) 08/03/24: Urine Nitrate Negative (Negative) 08/03/24: Urine Bilirubin Negative (Negative) 08/03/24: Urine Urobilinogen 1.0 mg/dL (Negative) 08/03/24 20:23 Ur Leukocyte Esterase Negative (Negative) 08/03/24 20: Urine RBC 0-2 /hpf (0-2) 08/03/24 20: Urine WBC 0-5 /hpf (0-5) 08/03/24 20:23 Ur Squamous Epith Cells 0-5 /hpf (0-5) 08/03/24 20: Amorphous Sediment Not Reportable 08/03/24 20: Urine Bacteria None seen /hpf (NONE) 08/03/24: Hyaline Casts 0.40 /lpf 08/03/24 20:23 Urine Opiates Screen Negative ng/mL (Negative) 08/03/24 20: Ur Barbiturates Screen Negative ng/mL (Negative) 08/03/24 20: Ur Phencyclidine Scrn Negative ng/mL (Negative) 08/03/24 20: Ur Amphetamines Screen Negative ng/mL (Negative) 08/03/24 20: U Benzodiazepines Scrn Negative ng/mL (Negative) 08/03/24: Urine Cocaine Screen Negative ng/mL (Negative) 08/03/24: U Marijuana (THC) Screen Positive ng/mL (Negative) H 08/03/24 20:23 All radiology interpretation(s) finalized by discharge Discharge Plan Discharge Patient Disposition: Admitted As Inpatient Clinical Impression: Suicidal ideation, Depression Condition: Stable Coding Level of Care Code ED Advanced Practice Nurse Psychotherapist for Natalie Kiran
--- NOTE | 2024-08-03 20:50 | PC.NURSE ---
96 Hour Involuntary Hold Patient Rights have been reviewed with the patient and a copy of the same has been provided to him. Civil Lawyer Cherise was present at chair side during the presentation of Rights.
[2024-08-03 21:07] LABS: Basophils # 0.1 10^3/uL (0.0-0.1); Basophils % 0.7 %; Eosinophils # 0.1 10^3/uL (0.0-0.8); Eosinophils % 1.5 %; Hematocrit 43.3 % (37-53); Mean Corpuscular HGB Conc 32.8 g/dL (30-55); Mean Corpuscular Hemoglobin 30.7 pg (27-33); Mean Corpuscular Volume 93.5 fl (82-101); Mean Platelet Volume 11.1 fL (7.4-10.4); Monocytes # 0.7 10^3/uL (0.2-0.9); Monocytes % 8.2 %; Neutrophils # 5.07 10^3/uL (1.8-7.7); Neutrophils % 56.5 %; Nucleated Red Blood Cells % 0 %; Platelet Count 256 10^3/cmm (157-399); Red Blood Count 4.63 10^6/uL (3.85-5.65); Red Cell Distribution Width 12.9 % (12.1-15.1); White Blood Count 8.95 10^3/uL (3.29-11.43)
[2024-08-03 21:37] LABS: Alanine Aminotransferase 15 U/L (0-41); Albumin Level 4.4 g/dL (3.5-5.2); Alkaline Phosphatase 67 U/L (40-130); Aspartate Amino Transferase 14 U/L (0-40); Blood Urea Nitrogen 9 mg/dL (6-20); Calcium 9.6 mg/dL (8.5-10.5); Carbon Dioxide 25 mmol/L (22-29); Chloride 102 mmol/L (98-107); Creatinine Clr Calc Pharmacy 121.1402; Globulin 2.9 g/dL (1.3-4.6); Glomerular Filtration Rate 108.8 mL/min (90-130); Glucose 105 mg/dL (65-115); Osmolality Calculated 283 mOsm/kg (285-295); Salicylate 0.5 mg/dL (3-10); Sodium 137 mmol/L (136-145); Thyroid Stimulating Hormone 2.78 uIU/mL (0.27-4.20); Total Bilirubin 0.3 mg/dL (0.15-1.2); Total Protein 7.3 g/dL (6.6-8.7)
[2024-08-03 21:40] LABS: Acetaminophen < 5.0 ug/mL (10-30); Alcohol Level < 10 mg/dL (0-10); Anion Gap 13.9 (5-19); Potassium 3.9 mmol/L (3.5-5.1)
[2024-08-03 22:47] VITALS: BP 129/88; PULSE 81; RESP 18; TEMP 36.4; O2SAT 98
[2024-08-03] MEDS: trazodone 50 mg Tablet PO (22:58)
[2024-08-03] MEDS: hyDROXYzine 25 mg Capsule 50 MG PO (22:58)
[2024-08-04 06:00] VITALS: BP 109/70; PULSE 68; RESP 16; TEMP 37; O2SAT 98
[2024-08-04] MEDS: buPROPion XL (24 HR) 150 mg Tablet 300 MG PO (07:55)
[2024-08-04] MEDS: BuSPIRONE 10 mg Tablet PO ×2 (07:56→17:52)
[2024-08-04 08:05] LABS: Valproic Acid Level 30.6 ug/mL (50-100)
[2024-08-04] MEDS: divalproex ER 500 mg Tablet (24H) PO ×2 (08:14→17:52)
[2024-08-04] MEDS: diphenhydrAMINE 50 mg/mL SDV 1mL IM (12:01)
[2024-08-04] MEDS: LORazepam 2 mg/mL INJ 1 mL IM (12:01)
[2024-08-04] MEDS: haloperidol inj 5 mg/mL INJ 1 mL IM (12:01)
--- NOTE | 2024-08-04 13:00 | W.PM.BREST ---
Face to Face: Restrn/Seclusion Events leading up to initiation: Verbalizing threat to self or others, Demonstrating self-destructive behavior (cutting, hitting barbour etc.) and Combative/Striking out at staff or others Evaluation of patient's immediate situation: No signs of physical distress and Signs of psychological distress Patient reaction since intervention applied: Behaviors/threats have lessened, but still present Recent labs reviewed: Yes Review of medications: Yes Patient's current medical/behavioral condition: No new concerns since last ROS Need for restraint or seclusion is: Continued Attending notified: Attending completed assessment
--- NOTE | 2024-08-04 13:04 | PC.NURSE ---
Patient brought by staff to the restraint and seclusion room. Neurovascular checks to all extremities are normal. Respirations are unlabored. Patient refused to let staff obtain vital signs.
[2024-08-04 13:10] VITALS: BP 110/64; PULSE 76; RESP 18; TEMP 36.7; O2SAT 98
--- NOTE | 2024-08-04 13:36 | PC.NURSE ---
Behavior: At approximately [address] Clemons up the hallway questioning his stay here and when he would D/C. The pt did not agree w/ the answer provided and when Dr. Clemons exited the [facility] door, the pt came back up the hallway with an angry expression. The pt then stopped at the lunch tray cart and grabbed his tray and threw it up in the air, hitting a ceiling tile. The pt was also screaming Fuck this and have fun fucking cleaning this up, here clean it up . At this time I called security to alert them we had an escalating pt. I went into the hallway to try and talk w/ the pt and asked what was going on and what else he could do instead of becoming aggressive. The pt then stated its because of that fucking cocksucker, I fucking hate the doctor . Pt then escalated more and flipped the lunch cart spilling all the trays. At this time the supervisor in charge called a code ten. The pt then begin to run down the hallway where he saw security coming down [facility] sorto and the pt began shouting Yea come on boys you want some of this! . The security badged through the door and at this time the first principal security architect made contact w/ the pt by performing a bear hug on him, the second principal security architect helped guide the pt to the bed in room 127, where other staff helped perform a hold. This SAVE ALL OPERATOR and the supervisor in charge at the same time were drawing up medications- Haldol 5mg and Ativan 2mg (given in right thigh) and Benadryl 50mg (given in Left thigh). While the medications were being administered, staff members retrieved the restraint bed to bring to the room. The pt was put into restraints by staff. The pt was wheeled in the restraint bed to the restraint room where 15 minute observation was set into place. The pt refused vitals after x2 attempts from staff, stating I will flip the fuck out if you try to touch me with that . Pt was left in restraints and each limb was released one by one as pt agreed to remain calm. Pt is now laying in bed comfortably w/ no concerns, RR even and unlabored.
--- NOTE | 2024-08-04 14:00 | P.NPUHP_ITS ---
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 Allergy Verified 06/27/24 13:33 PFSH NPU 2 PFSH: Medical History Hyperlipidemia Smoking Diabetes Metformin discontinued due to diarrhea. [facility] Substance abuse Intellectual disability Anxiety Psychiatric care Family History Other Diabetes Social History Smoking and tobacco/nicotine status: current every day tobacco/nicotine user cigarettes Packs smoked per day: 1 Years cigarettes smoked: 19 and smokeless tobacco Smokeless tobacco user: chewing tobacco Smokeless tobacco details: a can last about a week Quit status (tobacco/nicotine): considering quitting Second hand smoke exposure: Yes Alcohol intake: never Substance/Drug Use: never Adopted: No Caregiver/support person: Yes Lives independently: Yes Household members: family and none Housing: Apartment Marital status: Legally Number of children: 0 Number of grandchildren: 0 Highest education level completed: 9th Grade Current occupational status: unemployed Pets and animals: No Leisure activites: sports, exercise, music, hunting, fishing and other Leisure activities details: helps step dad around the house and watch movies Sexually active: No Do you think of yourself as: Straight/Heterosexual Current gender identity: Male Tiffanie/Jew: Orthodox Special tiffanie needs: No Agree to transfusion: Yes Mental Status Exam 2 MSE Comments: This is an overweight versus obese white male in hospital scrubs with limited grooming and eye contact. No abnormal movements except for psychomotor retardation. Cooperative with exam in moderate distress. Speech was decreased rate and volume. Mood described as depressed but is just dealing with the break-up, affect congruent but irritable. Thought process organized. Thought content: Patient endorsed some suicidal ideation expressed at admission but reported he just said that to get admitted but denied homicidal ideation, there were no delusions noted or reported, he denied current auditory or visual hallucinations. Stressors include homelessness but he is in a homeless detention, difficulty with his personal relationship and difficulty maintaining employment due to criminal history. Attention and concentration were limited and memory was mostly reliable but no more formally tested. He is alert and oriented times person and place. Insight, judgment and impulse control were limited versus impaired. Vitals/I&O/Wt Last Vital Signs Temp 98.1 F 08/04/24 13:10 Pulse 76 08/04/24 13:10 Resp 18 08/04/24 13:10 BP 110/64 08/04/24 13:10 Pulse Ox 98 08/04/24 13:10 O2 Del Method Room Air 08/04/24 13:10 Weight last 48 hrs Weight 77.111 kg Data NPU 05/22/25 20:45 08/03/24 20:45 A&P Assessment and plan (1) Anxiety: (2) Substance abuse: (3) Suicidal ideation: (4) Major depressive disorder, recurrent: (5) Paranoia: (6) Cannabis use disorder: (7) Alcohol use: Plan This is a 38-year-old white male with a long history of mental health and addiction issues with endorsement of trauma with genetic loading for mental health and addiction issues who presents with frequent inpatient hospitalizations which he had not had any here since 2014, but was just here 29 days ago and then about 3 weeks before that 18 days ago but before that he had been admitted to other facilities in January or February of 2024. There is a history of major depressive disorder with suicidal ideation and self-injurious behavior, including burning with cigarettes. There is also a presence of anxiety, paranoia, and auditory hallucinations. The patient has a history of substance use, including cannabis and alcohol, which may contribute to the psychiatric symptoms. He was positive for cannabis on this admission. He reported that this admission was predicated on his break-up with his significant other where their relationship has been on shaking around since he started coming here this year. The patient has a complex psychiatric history with multiple hospitalizations and suicide attempts, indicating a severe and persistent mental health condition. 1. Continue current medications. 2. Continue every 15 minute checks for safety. 3. Encourage individual, group and milieu therapies. 4. Encourage sober living treatment after discharge at the highest level of care to which he is willing to commit. 5. Get collateral information. 6. Evaluate against the backdrop of the 96-hour hold. 7. After we met he had a aggressive outburst because he was wanting to be discharged immediately and this technical proposal writer did not agree to discharge him today. This led to him restraint and seclusion. PDMP PDMP Reviewed: Not Reviewed Involuntary Hold Information 2 Hold Status: Legal Status: 96 Hour Hold Date/Time Hold Expires: 08/10/24 @ 20:35 Attestations NPU 2 Medical Necessity Statement*: Inpatient hospitalization is medically necessary and the clinically appropriate intervention at this time. We will monitor/initiate medications and make changes as indicated. Likely length of stay 5-7 days. Coding Level of Care Code Acute Code for [facility] Fwd Diagnoses Anxiety F41.9 Substance abuse F19.10 Suicidal ideation R45.851 Major depressive disorder, recurrent F33.9 Paranoia F22 Cannabis use disorder F12.90 Alcohol use F10.90
--- NOTE | 2024-08-04 14:47 | PC.OT ---
OT eval attempted with pt on hold due to code 10 earlier; will attempt again at later time.
[2024-08-04] MEDS: hyDROXYzine 25 mg Capsule 50 MG PO (20:05)
[2024-08-04] MEDS: trazodone 50 mg Tablet 100 MG PO (20:05)
[2024-08-04 20:27] VITALS: BP 104/60; PULSE 72; RESP 16; O2SAT 98
[2024-08-05 06:00] VITALS: RESP 16
--- NOTE | 2024-08-05 06:36 | PC.NURSE ---
pt stated he didnt want to move to get his vitals taken this morning nurse notified
[2024-08-05] MEDS: divalproex ER 500 mg Tablet (24H) PO ×2 (09:09→17:16)
[2024-08-05] MEDS: buPROPion XL (24 HR) 150 mg Tablet 300 MG PO (09:10)
[2024-08-05] MEDS: BuSPIRONE 10 mg Tablet PO ×2 (09:10→17:16)
[2024-08-05 14:00] VITALS: BP 107/70; PULSE 75; RESP 18; TEMP 36.6; O2SAT 98
--- NOTE | 2024-08-05 19:06 | P.NPUPN_ITS ---
Subjective NPU 2 Subjective: Patient presented today reporting that he was doing better than yesterday. He reported feeling embarrassed about his behavior and denied any intent to attack this automotive service writer or do anything inappropriate. He was very hopeful for discharge sooner rather than later and we discussed how his own choices led this to being a longer hospitalization than it necessarily had to be. He denied to the side effects to medication and give us the number so we could verify that his SOC bed remained. Mental Status Exam 2 MSE Comments: This is an overweight versus obese white male in hospital scrubs with limited grooming and eye contact. No abnormal movements except for psychomotor retardation. Cooperative with exam in mild distress. Speech was decreased rate and volume. Mood described as better than yesterday, affect congruent and less irritable. Thought process organized. Thought content: Patient denied suicidal or homicidal ideation, there were no delusions noted or reported, he denied current auditory or visual hallucinations. Stressors include homelessness but he is in a homeless [facility], difficulty with his personal relationship and difficulty maintaining employment due to criminal history. Attention and concentration were limited and memory was mostly reliable but no more formally tested. He is alert and oriented times person and place. Insight and judgment appear to be improving and impulse control was limited but improving.. Vitals/I&O/Wt Last Vital Signs Temp 98 F 08/05/24 14:00 Pulse 75 08/05/24 14:00 Resp 18 08/05/24 14:00 BP 107/70 08/05/24 14:00 Pulse Ox 95 08/05/24 14:00 O2 Del Method Room Air 08/04/24 13:10 Weight last 48 hrs Weight 77.927 kg Data NPU 08/03/24 20:45 08/03/24 20:45 A&P Assessment and plan (1) Anxiety: (2) Substance abuse: (3) Suicidal ideation: (4) Major depressive disorder, recurrent: (5) Paranoia: (6) Cannabis use disorder: (7) Alcohol use: Plan This is a 38-year-old white male with a long history of mental health and addiction issues with endorsement of trauma with genetic loading for mental health and addiction issues who presents with frequent inpatient hospitalizations which he had not had any here since 2014, but was just here 29 days ago and then about 3 weeks before that 18 days ago but before that he had been admitted to other facilities in January or February of 2024. There is a history of major depressive disorder with suicidal ideation and self-injurious behavior, including burning with cigarettes. There is also a presence of anxiety, paranoia, and auditory hallucinations. The patient has a history of substance use, including cannabis and alcohol, which may contribute to the psychiatric symptoms. He was positive for cannabis on this admission. He reported that this admission was predicated on his break-up with his significant other where their relationship has been on shaking around since he started coming here this year. The patient has a complex psychiatric history with multiple hospitalizations and suicide attempts, indicating a severe and persistent mental health condition. 1. Continue current medications. 2. Continue every 15 minute checks for safety. 3. Encourage individual, group and milieu therapies. 4. Encourage sober living treatment after discharge at the highest level of care to which he is willing to commit. 5. Get collateral information. 6. Evaluate against the backdrop of the 96-hour hold. 7. After we met he had a aggressive outburst because he was wanting to be discharged immediately and this automotive service writer did not agree to discharge him today. This led to him restraint and seclusion. He had a better day today and was able to be rational about his feelings and did not follow through on his threats yesterday to attack this automotive service writer when we met. We discussed the possibility of discharge sooner rather than later with knowledge that he still has a bed at [facility]. PDMP PDMP Reviewed: Not Reviewed Involuntary Hold Information 2 Hold Status: Legal Status: 96 Hour Hold Date/Time Hold Expires: 08/10/24 @ 20:35 Attestations NPU 2 Medical Necessity Statement*: Inpatient hospitalization is medically necessary and the clinically appropriate intervention at this time. We will monitor/initiate medications and make changes as indicated. Likely length of stay 1-3 days. Coding Level of Care Code Acute Code for [facility] Fwd Diagnoses Anxiety F41.9 Substance abuse F19.10 Suicidal ideation R45.851 Major depressive disorder, recurrent F33.9 Paranoia F22 Cannabis use disorder F12.90 Alcohol use F10.90
[2024-08-05 19:41] VITALS: BP 118/80; PULSE 76; RESP 18; O2SAT 98
[2024-08-05] MEDS: hyDROXYzine 25 mg Capsule 50 MG PO (20:02)
[2024-08-05] MEDS: trazodone 50 mg Tablet 100 MG PO (20:03)
[2024-08-06 06:00] VITALS: BP 142/87; PULSE 80; RESP 18; O2SAT 95
[2024-08-06] MEDS: divalproex ER 500 mg Tablet (24H) PO ×2 (08:52→17:28)
[2024-08-06] MEDS: BuSPIRONE 10 mg Tablet PO ×2 (08:52→17:28)
[2024-08-06] MEDS: buPROPion XL (24 HR) 150 mg Tablet 300 MG PO (08:52)
--- NOTE | 2024-08-06 09:12 | PC.NURSE ---
Pt states that he didn't sleep well. He has requested to speak to refrigeration houseman to file a complaint against some of the nurses on overnight babysitter. He states that he overheard the staff calling his ex girlfriend last night and had her on speaker phone. He states that one staff member even went to meet his ex girlfriend. He rates his anxiety a 6/10 due to the situation with his ex girlfriend. Depression a 0/10. Denies SI/HI. No reports of hallucinations. Denies pain. Pt did remain calm even though he was upset about the situation he reports overhearing at the nurses station last night.
[2024-08-06 14:00] VITALS: BP 139/96; PULSE 79; RESP 16; TEMP 36.7; O2SAT 98
--- NOTE | 2024-08-06 15:55 | P.NPUPN_ITS ---
Subjective NPU 2 Subjective: Patient presented today reporting that he is doing better but continue to focus on discharge. He now reports that his brother is going to scatter his father's ashes tomorrow and he was unaware of this he really like to be discharged to be a part of that situation. We discussed not preferring to have unplanned discharges and that the likelihood is discharge on Wednesday but that we would talk it out tomorrow. He denied any side effects to his medications. Mental Status Exam 2 MSE Comments: This is an overweight versus obese white male in hospital scrubs with limited grooming and eye contact. No abnormal movements except for psychomotor retardation. Cooperative with exam in mild distress. Speech was decreased rate and volume. Mood described as better than yesterday, affect congruent and less irritable. Thought process organized. Thought content: Patient denied suicidal or homicidal ideation, there were no delusions noted or reported, he denied current auditory or visual hallucinations. Stressors include homelessness but he is in a homeless [facility], difficulty with his personal relationship and difficulty maintaining employment due to criminal history. Attention and concentration were limited and memory was mostly reliable but no more formally tested. He is alert and oriented times person and place. Insight and judgment appear to be improving and impulse control was limited but improving.. Vitals/I&O/Wt Last Vital Signs Temp 98.3 F 08/06/24 19:12 Pulse 84 08/06/24 19:12 Resp 18 08/06/24 19:12 BP 127/84 08/06/24 19:12 Pulse Ox 97 08/06/24 19:12 O2 Del Method Room Air 08/06/24 14:00 Weight last 48 hrs Weight 77.927 kg Data NPU 08/03/24 20:45 08/03/24 20:45 A&P Assessment and plan (1) Anxiety: (2) Substance abuse: (3) Suicidal ideation: (4) Major depressive disorder, recurrent: (5) Paranoia: (6) Cannabis use disorder: (7) Alcohol use: Plan This is a 38-year-old white male with a long history of mental health and addiction issues with endorsement of trauma with genetic loading for mental health and addiction issues who presents with frequent inpatient hospitalizations which he had not had any here since 2014, but was just here 29 days ago and then about 3 weeks before that 18 days ago but before that he had been admitted to other facilities in January or February of 2024. There is a history of major depressive disorder with suicidal ideation and self-injurious behavior, including burning with cigarettes. There is also a presence of anxiety, paranoia, and auditory hallucinations. The patient has a history of substance use, including cannabis and alcohol, which may contribute to the psychiatric symptoms. He was positive for cannabis on this admission. He reported that this admission was predicated on his break-up with his significant other where their relationship has been on shaking around since he started coming here this year. The patient has a complex psychiatric history with multiple hospitalizations and suicide attempts, indicating a severe and persistent mental health condition. 1. Continue current medications. 2. Continue every 15 minute checks for safety. 3. Encourage individual, group and milieu therapies. 4. Encourage sober living treatment after discharge at the highest level of care to which he is willing to commit. 5. Get collateral information. 6. Evaluate against the backdrop of the 96-hour hold. 7. After we met he had a aggressive outburst because he was wanting to be discharged immediately and this policy writer did not agree to discharge him today. This led to him restraint and seclusion. He had a better day today and was able to be rational about his feelings and did not follow through on his threats yesterday to attack this policy writer when we met. We discussed the possibility of discharge sooner rather than later with knowledge that he still has a bed at [facility]. PDMP PDMP Reviewed: Not Reviewed Involuntary Hold Information 2 Hold Status: Legal Status: 96 Hour Hold Date/Time Hold Expires: 08/10/24 @ 20:35 Attestations NPU 2 Medical Necessity Statement*: Inpatient hospitalization is medically necessary and the clinically appropriate intervention at this time. We will monitor/initiate medications and make changes as indicated. Likely length of stay 1-3 days. Coding Level of Care Code Acute Code for g Fwd Diagnoses Anxiety F41.9 Substance abuse F19.10 Suicidal ideation R45.851 Major depressive disorder, recurrent F33.9 Paranoia F22 Cannabis use disorder F12.90 Alcohol use F10.90
--- NOTE | 2024-08-06 18:11 | PC.NURSE ---
08/05/24 During early HS hours, Hua summoned myself to the South side window to ask a question. He asked Is there any way to know if my girlfriend tried to call here and was refused information about me? I asked him if he remembered if he'd written her name in on his Information Authorization form during his admission the other night, to which he replied he thought so . I retrieved his form from his chart and brought it over to him and we looked at it together. The name Araceli Steward was written in his handwriting on the form, however it was also scratched out with ink. Hua advised me that yea I wrote her name down when I got here the other night but we've been fighting a lot. We got into it on the phone earlier today and I got mad so I asked for this paper and they let me zachery it out. I was mad at her and didn't want her to be able to talk to me or ask about me. I told him that I wasn't aware of anyone calling for him since I'd been on duty this NOC, however if she had called and they saw he'd removed her name, they wouldn't acknowledge he is here or give any information, so that might be a reason she'd not get information if she called. He advised, yea she told me she tried to call to ask if I was going home but I felt bad for being mean to her and called her so she told me about that just now. I asked him if he would like a pen to update the form, that he can certainly add her name back on it if he'd like to, to which he stated, yes please . He then wrote Araceli Steward under the line where he'd scratched out the original entry. He said thank you, now I feel better and I should be nicer to her, she cares about me and I just get mad easy . I said I understand and you came to me to ask for help to understand something that was upsetting you, so I'm proud of you. Thank you for letting me help you. He advised, Can I come back and ask you a question if I need help again? I replied, absolutely, no matter which side of the unit I'm working on (I work [employer] [facility]), I'm happy to help in any way that I can. He then asked me for some juice et again thanked me et walked back into the hallway. He did come back a few times throughout the NOC to ask for juice et similar things, but did not appear distressed again to my knowledge. When Dr. Clemons came through at one point, Hua called me over to ask me a question, but saw Dr. Clemons, et said oh, nevermind I was going to ask if you knew if he was here, but I'll just ask him et proceeded to summon Dr. Clemons through the window, to which the doctor went over et talked with Hua in a private area.
[2024-08-06 19:12] VITALS: BP 127/84; PULSE 84; RESP 18; TEMP 36.8; O2SAT 97
[2024-08-06] MEDS: trazodone 50 mg Tablet 100 MG PO (20:18)
[2024-08-06] MEDS: hyDROXYzine 25 mg Capsule 50 MG PO (20:18)
[2024-08-07 06:00] VITALS: BP 114/78; PULSE 80; RESP 20; O2SAT 98
[2024-08-07] MEDS: divalproex ER 500 mg Tablet (24H) PO ×2 (08:42→17:19)
[2024-08-07] MEDS: BuSPIRONE 10 mg Tablet PO ×2 (08:42→17:19)
[2024-08-07] MEDS: buPROPion XL (24 HR) 150 mg Tablet 300 MG PO (08:42)
--- NOTE | 2024-08-07 09:49 | PC.OT ---
OT EVALUATION ATTEMPTED THIS A.M. PATIENT SHOWERING
[2024-08-07 14:00] VITALS: BP 140/90; PULSE 78; RESP 16; TEMP 36.7; O2SAT 98
[2024-08-07] MEDS: hyDROXYzine 25 mg Capsule 50 MG PO (15:09)
--- NOTE | 2024-08-07 18:41 | P.NPUPN_ITS ---
Subjective NPU 2 Subjective: Patient presented today reporting that he is doing okay. He had a moment where he felt that this creative services writer was talking about him to a different patient and we had a discussion that that is not something that is ever done. He endorsed looking forward to the likelihood of discharge tomorrow and denied any side effects of his medications. Mental Status Exam 2 MSE Comments: This is an overweight versus obese white male in hospital scrubs with limited grooming and eye contact. No abnormal movements except for psychomotor retardation. Cooperative with exam in mild distress. Speech was decreased rate and volume. Mood described as better than yesterday, affect congruent and less irritable. Thought process organized. Thought content: Patient denied suicidal or homicidal ideation, there were no delusions noted or reported, he denied current auditory or visual hallucinations. Stressors include homelessness but he is in a homeless [facility], difficulty with his personal relationship and difficulty maintaining employment due to criminal history. Attention and concentration were limited and memory was mostly reliable but no more formally tested. He is alert and oriented times person and place. Insight and judgment appear to be improving and impulse control was limited but improving.. Vitals/I&O/Wt Last Vital Signs Temp 98.2 F 08/07/24 20:01 Pulse 83 08/07/24 20:01 Resp 18 08/07/24 20:01 BP 138/92 08/07/24 20:01 Pulse Ox 98 08/07/24 20:01 O2 Del Method Room Air 08/07/24 20:01 Weight last 48 hrs Weight 77.927 kg Data NPU 08/03/24 20:45 08/03/24 20:45 A&P Assessment and plan (1) Anxiety: (2) Substance abuse: (3) Suicidal ideation: (4) Major depressive disorder, recurrent: (5) Paranoia: (6) Cannabis use disorder: (7) Alcohol use: Plan This is a 38-year-old white male with a long history of mental health and addiction issues with endorsement of trauma with genetic loading for mental health and addiction issues who presents with frequent inpatient hospitalizations which he had not had any here since 2014, but was just here 29 days ago and then about 3 weeks before that 18 days ago but before that he had been admitted to other facilities in January or February of 2024. There is a history of major depressive disorder with suicidal ideation and self-injurious behavior, including burning with cigarettes. There is also a presence of anxiety, paranoia, and auditory hallucinations. The patient has a history of substance use, including cannabis and alcohol, which may contribute to the psychiatric symptoms. He was positive for cannabis on this admission. He reported that this admission was predicated on his break-up with his significant other where their relationship has been on shaking around since he started coming here this year. The patient has a complex psychiatric history with multiple hospitalizations and suicide attempts, indicating a severe and persistent mental health condition. 1. Continue current medications. 2. Continue every 15 minute checks for safety. 3. Encourage individual, group and milieu therapies. 4. Encourage sober living treatment after discharge at the highest level of care to which he is willing to commit. 5. Get collateral information. 6. Evaluate against the backdrop of the 96-hour hold. 7. After we met he had a aggressive outburst because he was wanting to be discharged immediately and this creative services writer did not agree to discharge him today. This led to him restraint and seclusion. He has been doing better and has denied any intention of aggression. He has had a couple of moments of delusion out of the was where he thought staff and another patient were talking about his ex and wants when he thought that this creative services writer was talking to another patient about him. We discussed the possibility of discharge sooner rather than later with knowledge that he still has a bed at [facility]. PDMP PDMP Reviewed: Not Reviewed Involuntary Hold Information 2 Hold Status: Legal Status: 96 Hour Hold Date/Time Hold Expires: 08/10/24 @ 20:35 Attestations NPU 2 Medical Necessity Statement*: Inpatient hospitalization is medically necessary and the clinically appropriate intervention at this time. We will monitor/initiate medications and make changes as indicated. Likely length of stay 1-3 days. Coding Level of Care Code Acute Code for [facility] Fwd Diagnoses Anxiety F41.9 Substance abuse F19.10 Suicidal ideation R45.851 Major depressive disorder, recurrent F33.9 Paranoia F22 Cannabis use disorder F12.90 Alcohol use F10.90
[2024-08-07 20:01] VITALS: BP 138/92; PULSE 83; RESP 18; TEMP 36.8; O2SAT 98
[2024-08-07] MEDS: trazodone 50 mg Tablet 100 MG PO (21:06)
[2024-08-07] MEDS: trazodone 50 mg Tablet PO ×2 (23:45)
[2024-08-08 06:00] VITALS: BP 125/85; PULSE 93; RESP 18; TEMP 36.4; O2SAT 99
[2024-08-08] MEDS: divalproex ER 500 mg Tablet (24H) PO (08:18)
[2024-08-08] MEDS: buPROPion XL (24 HR) 150 mg Tablet 300 MG PO (08:18)
[2024-08-08] MEDS: BuSPIRONE 10 mg Tablet PO (08:18)
--- NOTE | 2024-08-08 11:39 | W.PM.NPUDCS ---
Diagnoses at Discharge Discharge Diagnosis (1) Anxiety: Status: Acute (2) Substance abuse: Status: Acute (3) Suicidal ideation: Status: Resolved (4) Major depressive disorder, recurrent: Status: Acute (5) Paranoia: Status: Resolved (6) Cannabis use disorder: Status: Acute (7) Alcohol use: Status: Acute Reason for Visit Reason for Visit: SI Involuntary Hold Information Hold Status: Legal Status: 96 Hour Hold Date/Time Hold Expires: 08/10/24 @ 20:35 Mental Status Exam MSE Comments: This is an overweight versus obese white male in hospital scrubs with limited grooming and eye contact. No abnormal movements except for psychomotor retardation. Cooperative with exam in mild distress. Speech was decreased rate and volume. Mood described as better than yesterday, affect congruent and less irritable. Thought process organized. Thought content: Patient denied suicidal or homicidal ideation, there were no delusions noted or reported, he denied current auditory or visual hallucinations. Stressors include homelessness but he is in a homeless correction, difficulty with his personal relationship and difficulty maintaining employment due to criminal history. Attention and concentration were limited and memory was mostly reliable but no more formally tested. He is alert and oriented times person and place. Insight and judgment appear to be improving and impulse control was limited but improving.. Discharge Data Studies Completed and Pending: Laboratory Results WBC 8.95 10^3/uL (3.2 9-11.43) 08/03/24 20:45 RBC 4.63 10^6/uL (3.8 5-5.65) 08/03/24 20:45 Hgb 14.20 g/dL (11.27 -16.99) 08/03/24 20:45 Hct 43.3 % (37-53) 08/03/24 20:45 MCV 93.5 fl (82-101) 08/03/24 20:45 MCH 30.7 pg (27-33) 08/03/24 20:45 MCHC 32.8 g/dL (30-55) 08/03/24 20:45 RDW 12.9 % (12.1-15.1 ) 08/03/24 20:45 Plt Count 256 10^3/cmm (157 -399) 08/03/24 20:45 MPV 11.1 fL (7.4-10.4 ) H 08/03/24 20:45 Neut % (Auto) 56.5 % 08/03/24 20:45 Lymph % (Auto) 33.0 % 08/03/24 20:45 Frontier % (Auto) 8.2 % 08/03/24 20:45 Eos % (Auto) 1.5 % 08/03/24 20:45 Baso % (Auto) 0.7 % 08/03/24 20:45 Neut # (Auto) 5.07 10^3/uL (1.8 -7.7) 08/03/24 20:45 Lymph # (Auto) 3.0 10^3/uL (0.8- 4.8) 08/03/24 20:45 [place] # (Auto) 0.7 10^3/uL (0.2- 0.9) 08/03/24 20:45 Eos # (Auto) 0.1 10^3/uL (0.0- 0.8) 08/03/24 20:45 Baso # (Auto) 0.1 10^3/uL (0.0- 0.1) 08/03/24 20:45 Nucleated RBC % (a uto) 0 % 08/03/24 20:45 Nucleated RBCs # 0.0 /100WBC 08/03/24 20:45 Sodium 137 mmol/L (136-1 45) 08/03/24 20:45 Potassium 3.9 mmol/L (3.5-5 .1) 08/03/24 20:45 Chloride 102 mmol/L (98-10 7) 08/03/24 20:45 Carbon Dioxide 25 mmol/L (22-29) 08/03/24 20:45 Anion Gap 13.9 (5-19) 08/03/24 20:45 BUN 9 mg/dL (6-20) 08/03/24 20:45 Creatinine 0.8 mg/dL (0.7-1. 2) 08/03/24 20:45 GFR Calculation 108.8 mL/min (90- 130) 08/03/24 20:45 Glucose 105 mg/dL (65-115 ) 08/03/24 20:45 Calculated Osmolal ity 283 mOsm/kg (285- 295) L 08/03/24 20:45 Calcium 9.6 mg/dL (8.5-10 .5) 08/03/24 20:45 Total Bilirubin 0.3 mg/dL (0.15-1 .2) 08/03/24 20: AST 14 U/L (0-40) 08/03/24 20: ALT 15 U/L (0-41) 08/03/24 20:45 Alkaline Phosphata se 67 U/L (40-130) 08/03/24 20: Total Protein 7.3 g/dL (6.6-8.7 ) 08/03/24 20: Albumin 4.4 g/dL (3.5-5.2 ) 08/03/24 20: Globulin 2.9 g/dL (1.3-4.6 ) 08/03/24: TSH 2.78 uIU/mL (0.27 -4.20) 08/03/24: Urine Color Yellow (Yellow) 08/03/24 Urine Appearance Cloudy (CLEAR) A 08/03/24 Urine pH 6.5 (5-7) 08/03/24 Ur Specific Gravit y 1.014 (1.005-1.0 30) 08/03/24: Urine Protein Negative (Negati ve) 08/03/24 Urine Glucose (UA) Negative (Normal ) 08/03/24 Urine Ketones Negative (Negati ve) 08/03/24: Urine Blood Negative (Negati ve) 08/03/24: Urine Nitrate Negative (Negati ve) 08/03/24: Urine Bilirubin Negative (Negati ve) 08/03/24 Urine Urobilinogen 1.0 mg/dL (Negati ve) 08/03/24: Ur Leukocyte Marilee ase Negative (Negati ve) 08/03/24: Urine RBC 0-2 /hpf (0-2) 08/03/24: Urine WBC 0-5 /hpf (0-5) 08/03/24: Ur Squamous Epith Cells 0-5 /hpf (0-5) 08/03/24 Amorphous Sediment Not Reportable 08/03/24 Urine Bacteria None seen /hpf (N ONE) 08/03/24 Hyaline Casts 0.40 /lpf 08/03/24 20:23 Salicylates 0.5 mg/dL (3-10) L 08/03/24 20:45 Urine Opiates Scre en Negative ng/mL (N egative) 08/03/24 20:23 Acetaminophen < 5.0 ug/mL (10-3 0) L 08/03/24 20:45 Ur Barbiturates Sc reen Negative ng/mL (N egative) 08/03/24 20:23 Valproic Acid 30.6 ug/mL (50-10 0) L 08/03/24 20:45 Ur Phencyclidine S crn Negative ng/mL (N egative) 08/03/24 20:23 Ur Amphetamines Sc reen Negative ng/mL (N egative) 08/03/24 20:23 U Benzodiazepines Scrn Negative ng/mL (N egative) 08/03/24 20:23 Urine Cocaine Scre en Negative ng/mL (N egative) 08/03/24 20:23 U Marijuana (THC) Screen Positive ng/mL (N egative) H 08/03/24 20:23 Ethyl Alcohol < 10 mg/dL (0-10) 08/03/24 20:45 Vitals: Last Vital Signs Temp 97.6 F 08/08/24 06:00 Pulse 93 08/08/24 06:00 Resp 18 08/08/24 06:00 BP 125/85 08/08/24 06:00 Pulse Ox 99 08/08/24 06:00 O2 Del Method Room Air 08/08/24 06:00 Discharge Plan Discharge Patient Disposition: Home Condition: Stable Prescriptions: Continued buspirone 10 mg tablet 10 mg PO BID Qty: 60 2RF hydroxyzine HCl 50 mg tablet 50 mg PO QID PRN (Reason: anxiety/insomnia) Qty: 120 2RF trazodone 50 mg tablet 100 mg PO BEDTIME PRN (Reason: Sleep) 30 Days Qty: 60 2RF bupropion HCl 150 mg Tablet Extended Release 24 Hr 300 mg PO DAILY 30 Days Qty: 60 1RF Rx Instructions: can dispense 300 mg tablet instead divalproex [Depakote ER] 500 mg tablet extended release 24 hr 500 mg PO BID Discharge Orders: Discharge Order (Routine); Ordered 08/08/24 Ordered By: Deon Clemons Referrals: Pepito Mann MD [Primary Care Provider, Family Practice] Chidi Jackson MD [Physician, Psychiatry] - 08/08/24 3:30 pm Discharge Diet: Regular Discharge Activity: Resume usual activity Patient Instructions: Opioid Safety, Pain Management Discharge Attestations NPU Time Spent in Discharge Care*: less than 30 min Specific Discharge Activities: Specific discharge activities: educating patient, discussing with case advocate/social workers/dc planners, documenting/other paperwork and evaluating patient/reviewing data Coding Level of Care Code Acute Code for Chg Fwd Diagnoses Anxiety F41.9 Substance abuse F19.10 Suicidal ideation R45.851 Major depressive disorder, recurrent F33.9 Paranoia F22 Cannabis use disorder F12.90 Alcohol use F10.90
[2024-08-08 12:47] VITALS: BP 133/80; PULSE 99; RESP 18; TEMP 36.8; O2SAT 99
== END 2024-08-08 13:40 | disposition home or self-care (01) | DRG 885 ==
LOC: ER 20:52 → NP 22:38
PROVIDERS: Admitting Provider Psychiatry & Neurology Psychiatry; Emergency Provider Emergency Medicine; PCP Family Medicine; Visit Provider Psychiatry & Neurology Psychiatry
DX: F22 Delusional disorders (principal); R45.851 Suicidal ideations; F33.9 Major depressive disorder, recurrent, unspecified; F41.9 Anxiety disorder, unspecified; Z91.51 Personal history of suicidal behavior; Z63.0 Problems in relationship with spouse or partner; F17.210 Nicotine dependence, cigarettes, uncomplicated; F17.220 Nicotine dependence, chewing tobacco, uncomplicated; Z91.148 Patient's other noncompliance with medication regimen for other reason; Z81.8 Family history of other mental and behavioral disorders; E66.9 Obesity, unspecified
CPT/HCPCS: 36415; 80053; 80164; 80306; 80307; 81001; 84443; 85025; 93005; 96372; 97165; 99285; J1200; J1630; J2060; J9999

== ENCOUNTER 2024-12-02 08:42 | Emergency (ER) | payer OTHER, MEDICAID, SELFPAY ==
[2024-09-11 14:07] VITALS: BP 130/84; BMI 30.8
[2024-12-02 08:43] VITALS: BP 144/82; PULSE 69; RESP 18; TEMP 36.7; O2SAT 99; BMI 27.9
--- NOTE | 2024-12-02 08:45 | ECG_ITS ---
[facility] Test Date: 2024-12-02 Pat Name: uHa [place] Department: Room: Gender: Male Hospital Director: : 1985 Requested By: Holly Bangura Order Number: [id number] Yovani MD: Jatinder Le M.D. Measurements Intervals [place] Rate: 70 P: 19 [place]: 161 QRS: 26 QRSD: 106 T: 12 QT: 384 QTc: 417 Interpretive Statements SINUS RHYTHM Compared to ECG 08/03/2024 20:16:27 No significant changes Electronically Signed On 12-02-2024 13:02:45 CDT by Jatinder Le M.D. [email or web address] [id number]
--- NOTE | 2024-12-02 08:49 | XRR_ITS ---
PROCEDURE INFORMATION: Exam: XR Chest Exam date and time: 12/02/2024 9:01 AM Age: 39 years old Clinical indication: Pain; Chest pressure; Additional info: Chest pain TECHNIQUE: Imaging protocol: Radiologic exam of the chest. Views: 1 view. COMPARISON: CR XR chest 1V portable [id number] 02/16/2024 10:22 PM FINDINGS: Lungs: Unremarkable. No consolidation. Pleural spaces: Unremarkable. No pleural effusion. No pneumothorax. Heart/Mediastinum: Unremarkable. No cardiomegaly. Bones/joints: Unremarkable. XR/XR chest 1V portable [id number] IMPRESSION: No acute findings.
--- OUTSIDE RECORDS SUMMARY | 2024-12-02 08:53 | XMS_ITS | Encounter Summary ---
Author Organization [facility] Address [address] [place] [address] Care Team Providers Care Manager Data Center Name Role Phone Unavailable Primary Care Provider Unavailabl e Encounter Details Date Type Department Care Team (Late st Contact Info) Description 11/28/2024 External Device Data [facility] ABSTRACTION Provider, Abstract NO ADDRESS ON FILE Social History Tobacco Use Types Packs/Day Years Used Date Smoking Tobacco: Every Day Cigarettes Alcohol Use Standard Drinks/Week Comments Yes 0 (1 standard drink = 0.6 oz pur e alcohol) unknown Feeling Safe Answer Date Recorded Are you in a relationship wi th someone who hurts you emotionally and/or physically? 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
--- OUTSIDE RECORDS SUMMARY | 2024-12-02 08:53 | XMS_ITS | Clinical Summary ---
Author Organization [facility] Address [address] [place] [address] Phone Care Team Providers Care Charge Out Clerk Name Role Phone Unavailable Primary Care Provider Unavailabl e Allergies No known active allergies Medications haloperidoL (HALDOL) 1 mg tablet TAKE ONE TABLET BY MOUTH TWICE DAILY 60 Tablet 0 07/09/2016 Active haloperidoL (HALDOL) 1 mg tablet TAKE ONE TABLET BY MOUTH TWICE DAILY 60 Tablet 5 07/27/2016 Active citalopram (CeleXA) 40 mg tabletIndication s:Depression with anxiety Take 1 Tablet (40 mg) by mouth daily. 30 Tablet 5 07/14/2016 Active raNITIdine (ZANTAC) 300 mg tabletIndication s:Gastroesophage al reflux disease without esophagitis Take 1 Tablet (300 mg) by mouth 2 times daily. 60 Tablet PRN 07/14/2016 Active ARIPiprazole (ABILIFY) 10 mg tablet TAKE ONE TABLET BY MOUTH ONCE DAILY 30 Tablet 4 08/25/2016 Active Active Problems Problem Noted Date Diagnosed Date Cigarette dependence 09/06/2015 Schizophrenia 09/06/2015 Depression with anxiety 09/06/2015 Gastroesophageal reflux disease without esophagi tis 09/06/2015 History of alcohol abuse 09/06/2015 Encounters Date Type Department Care Team Description 11/28/2024 External Device Data [facility] ABSTRACTION Provider, Abstract 11/14/2024 External Device Data [facility] ABSTRACTION Provider, Abstract 11/14/2024 External Device Data [facility] ABSTRACTION Provider, Abstract 10/31/2024 External Device Data [facility] ABSTRACTION Provider, Abstract 09/27/2024 External Device Data [facility] ABSTRACTION Provider, Abstract 09/27/2024 External Device Data [facility] ABSTRACTION Provider, Abstract from Last 3 Months Family History Medical History Relation Name Comments Healthy Father Healthy Mother Relation Name Status Comments Father Alive Mother Alive Social History Tobacco Use Types Packs/Day Years Used Date Smoking Tobacco: Every Day Cigarettes Tobacco Cessation:Ready to Q uit: Not Asked; Counseling Given: Not Answered Alcohol Use Standard Drinks/Week Comments Yes 0 (1 standard drink = 0.6 oz pur e alcohol) unknown Feeling Safe Answer Date Recorded Are you in a relationship wi th someone who hurts you emotionally and/or physically? 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 Gender Identity Not on file Sexual Orientation Not on file Last Filed Vital Signs Vital Sign Reading Time Taken Comments Blood Pressure 121/74 01/12/2024 6:34 AM CDT Pulse 77 01/12/2024 6:34 AM CDT Temperature 36.7 C (98 F) 01/12/2024 6:34 AM CDT Respiratory Rate 16 01/12/2024 6:34 AM CDT Oxygen Saturation 97% 01/12/2024 6:34 AM CDT Inhaled Oxygen Concentration - - Weight 76.2 kg (168 lb) 01/12/2024 2:40 AM CDT Height 165.1 cm (5' 5 ) 01/12/2024 2:40 AM CDT Body Mass Index 27.96 01/12/2024 2:40 AM CDT Plan of Treatment Health Maintenance Due Date Last Done Comments Pre-Diabetes and Diabetes Screening 1985 DTAP/TDAP/TD VACCINES (1 - Tdap) 2005 HEPATITIS B VACCINES (1 of 3 - 19+ 3-dose series) 09/13 HPV VACCINES (1 - 3-dose SCDM series) 2013 INFLUENZA VACCINE (#1) 2024 Medical Devices Implanted Type Area Front Office Medical Assistant Device Identifier Shelf Expiration Date Model / Serial / Lot Log [id number] - Bar Arch - 1 - Arch [facility] Implanted:Qty: 2 on 12/22/2008 Wire BIOMET [id number] MARY ALICE DE JESUS / / Insurance [facility] INDIVIDUAL EXCHANGE [id number]
--- NOTE | 2024-12-02 08:58 | ED_ITS ---
HPI - Chest Pain 2 General: Chief Complaint: Chest Pain Stated Complaint: chest pain Time Seen by Provider: 12/02/24 08:48 Source: patient and EMS Mode of arrival: EMS Limitations: no limitations History of Present Illness: 39-year-old male who states that he has been having chest pain since yesterday. States that sharp pain in the center of his chest mild upper abdominal pain states pain seems mainly in his chest he denies any vomiting denies any shortness of breath denies any worsening improving factors. Denies any fever. Associated symptoms: Deny abdominal pain, dyspnea, fever(s), nausea or vomiting Related Data Previous Rx's ?Medication ?Instructions ?Recorded buspirone 10 mg tablet 10 mg PO BID #60 tabs divalproex 500 mg tablet,extended 500 mg PO BID #60 ta bs 08/09/24 release 24 hr (Depakote ER) hydroxyzine HCl 50 mg tablet 50 mg PO QID PRN anxiety/ insomnia 08/09/24 #120 tabs bupropion HCl 150 mg 24 hr tablet, 150 mg PO QAM #30 t abs 10/02/24 extended release (Wellbutrin XL) hydrocodone 5 mg-acetaminophen 325 1 tab PO Q6H PRN pa in #14 tabs 12/02/24 mg tablet ondansetron 4 mg disintegrating 4 mg PO Q6H PRN nausea and 12/02/24 tablet vomiting #14 tabs Allergies Allergy/AdvReac Type Severity Reaction Status Date / Time No Known Allergies Allergy Verified 10/02/24 14:46 Review of Systems 2 Const: Denies: fever(s), chills, body aches or change in appetite ENMT: Denies: throat pain or dental pain Card: Reports: chest pain Resp: Denies: dyspnea GI: Denies: abdominal pain, nausea, vomiting or diarrhea Musc: Denies: neck pain or back pain Skin/Breast: Denies: rash Neuro: Denies: headache(s) PFSH ED 2 PFSH: Medical History Hyperlipidemia Smoking Diabetes Metformin discontinued due to diarrhea. Psychiatric care Released from [facility] Substance abuse Intellectual disability Anxiety Psychiatric care Family History Other Diabetes Social History Smoking and tobacco/nicotine status: current every day tobacco/nicotine user cigarettes Packs smoked per day: 1 Years cigarettes smoked: 18 and smokeless tobacco Smokeless tobacco user: chewing tobacco Smokeless tobacco details: a can last about a week Quit status (tobacco/nicotine): considering quitting Second hand smoke exposure: Yes Alcohol intake: never Substance/Drug Use: never Adopted: No Caregiver/support person: Yes Lives independently: Yes Household members: family and none Housing: Apartment Marital status: Legally Number of children: 0 Number of grandchildren: 0 Highest education level completed: 9th Grade Current occupational status: unemployed Pets and animals: No Leisure activites: sports, exercise, music, hunting, fishing and other Leisure activities details: helps step dad around the house and watch movies Sexually active: No Do you think of yourself as: Straight/Heterosexual Current gender identity: Male Tiffanie/Anglican: Anabaptism Special tiffanie needs: No Agree to transfusion: Yes Physical Exam 2 Const: COMMON NORMALS: no acute distress, patient oriented x3 and healthy appearing HENMT: COMMON NORMALS: normocephalic and atraumatic HEAD & SCALP: n ormocephalic and atraumatic Eye: COMMON NORMALS: Equal, round and reactive pupils present and EOMs intact bilaterally PUPIL: Yes Equal, round and reactive pupils present Neck/C-Spine: COMMON NORMALS: full ROM and supple Chest: COMMONS NORMALS: normal inspection of the chest and normal palpation of entire chest wall Resp: COMMON NORMALS: normal respiratory effort, No retractions, No use of accessory muscles and clear to auscultation bilaterally AUSCULTATION: clear to auscultation bilaterally Cardio: COMMON NORMALS: regular rate, regular rhythm and No murmurs present (Cardio) RATE: regular rate RHYTHM: regular rhythm GI: COMMON NORMALS: Normal to inspection, nondistended, normoactive bowel sounds present, Soft to palpation, non-tender and no masses PALPATION: Yes Soft to palpation Extremity: COMMON NORMALS: normal to inspection and full ROM Neuro: COMMON NORMALS: patient oriented x3, moves all extremities and no focal motor deficits Psych: COMMON NORMALS: mental status grossly normal, Normal thought process present and cooperative THOUGHT PROCESS: Normal thought process present Skin: COMMON NORMALS: no rashes or lesions noted and no wounds GENERAL SKIN EXAM: no rashes or lesions noted Course 2 Vital Signs: Vital signs: Vital Signs Temperature 98.1 F 12/02/24 08:43 Pulse Rate 67 12/02/24 09:27 Respiratory Rate 18 12/02/24 08:43 Blood Pressure 144/82 12/02/24 09:27 Pulse Oximetry 98 12/02/24 09:27 Oxygen Delivery Me thod Room Air 12/02/24 09:27 MDM - Chest Pain Medical Decision Making Patient is here chest pain along with some abdominal pain his abdominal exam is benign at discharge does have a mildly elevated lipase could be mild pancreatitis he is to do a full liquid diet we will prescribe him pain meds his troponin here is negative chest x-ray is negative he has no signs of acute coronary syndrome signs of PE or dissection he is stable for discharge follow-up PCP return if worsening. Medical Records I reviewed the patient's medical records. Lab Data I reviewed the patient's lab results. 12/02/24 08:54 12/02/24 08:54 Laboratory Results WBC 11.86 10^3/uL (3.29-11.43) H 12/02/24 08:54 RBC 4.54 10^6/uL (3.85-5.65) 12/02/24 08:54 Hgb 13.50 g/dL (11.27-16.99) 12/02/24 08:54 Hct 41.4 % (37-53) 12/02/24 08:54 MCV 91.2 fl (82-101) 12/02/24 08:54 MCH 29.7 pg (27-33) 12/02/24 08:54 MCHC 32.6 g/dL (30-55) 12/02/24 08:54 RDW 13.1 % (12.1-15.1) 12/02/24 08:54 Plt Count 231 10^3/cmm (157-399) 12/02/24 08:54 MPV 10.2 fL (7.4-10.4) 12/02/24 08:54 Neut % (Auto) 67.5 % 12/02/24 08:54 Lymph % (Auto) 22.2 % 12/02/24 08:54 [place] % (Auto) 8.9 % 12/02/24 08:54 Eos % (Auto) 0.8 % 12/02/24 08:54 Baso % (Auto) 0.3 % 12/02/24 08:54 Neut # (Auto) 8.00 10^3/uL (1.8-7.7) H 12/02/24 08:54 Lymph # (Auto) 2.6 10^3/uL (0.8-4.8) 12/02/24 08:54 [place] # (Auto) 1.1 10^3/uL (0.2-0.9) H 12/02/24 08:54 Eos # (Auto) 0.1 10^3/uL (0.0-0.8) 12/02/24 08:54 Baso # (Auto) 0.0 10^3/uL (0.0-0.1) 12/02/24 08:54 Nucleated RBC % (auto) 0 % 12/02/24 08:54 Nucleated RBCs # 0.0 /100WBC 12/02/24 08:54 Sodium 138 mmol/L (136-145) 12/02/24 08:54 Potassium 4.1 mmol/L (3.5-5.1) 12/02/24 08:54 Chloride 102 mmol/L (98-107) 12/02/24 08:54 Carbon Dioxide 22 mmol/L (22-29) 12/02/24 08:54 Anion Gap 18.1 (5-19) 12/02/24 08:54 BUN 11 mg/dL (6-20) 12/02/24 08:54 Creatinine 0.8 mg/dL (0.7-1.2) 12/02/24 08:54 GFR Calculation 108.2 mL/min (90-130) 12/02/24 08:54 Glucose 184 mg/dL (65-115) H 12/02/24 08:54 Calculated Osmolality 290 mOsm/kg (285-295) 12/02/24 08:54 Calcium 10.0 mg/dL (8.5-10.5) 12/02/24 08:54 Total Bilirubin 0.3 mg/dL (0.15-1.2) 12/02/24 08:54 AST 13 U/L (0-40) 12/02/24 08:54 ALT 14 U/L (0-41) 12/02/24 08:54 Alkaline Phosphatase 62 U/L (40-130) 12/02/24 08:54 Troponin T Baseline < 6 ng/L (0-15) 12/02/24 08:54 Total Protein 7.1 g/dL (6.6-8.7) 12/02/24 08:54 Albumin 4.6 g/dL (3.5-5.2) 12/02/24 08:54 Globulin 2.5 g/dL (1.3-4.6) 12/02/24 08:54 Lipase 232 U/L (13-60) H 12/02/24 08:54 Ethyl Alcohol < 10 mg/dL (0-10) 12/02/24 08:54 All radiology interpretation(s) finalized by discharge EKG Data EKG 1: I personally reviewed and interpreted this EKG as follows: EKG interpretation date: 12/02/24 EKG interpretation time: 08:45 Interpretation: nsr hr [address] elevation qrs 106 qtc 405 Clincial Decision Support The following clinical decision support tools were used to aid in care of the patient HEART Score -> History: Slightly Suspicous, EKG: Normal, Age: Less than 45 yrs, Risk Factors: No Risk Factors Known, Troponin: Baseline Trop <16 ng/L. Resulting HEART Score: 0. Discharge Plan Discharge Patient Disposition: Home Clinical Impression: Chest pain, Pancreatitis Condition: Stable Prescriptions: New hydrocodone-acetaminophen 5-325 mg tablet 1 tab PO Q6H PRN (Reason: pain) Qty: 14 0RF ondansetron 4 mg tablet,disintegrating 4 mg PO Q6H PRN (Reason: nausea and vomiting) Qty: 14 0RF No Action buspirone 10 mg tablet 10 mg PO BID Qty: 60 2RF divalproex [Depakote ER] 500 mg tablet extended release 24 hr 500 mg PO BID Qty: 60 2RF hydroxyzine HCl 50 mg tablet 50 mg PO QID PRN (Reason: anxiety/insomnia) Qty: 120 2RF bupropion HCl [Wellbutrin XL] 150 mg tablet extended release 24 hr 150 mg PO QAM Qty: 30 2RF Discharge Orders: Discharge ED (Routine); Ordered 12/02/24 Ordered By: Holly Bangura Referrals: Pepito Mann MD [Primary Care Provider, Family Practice] - 4-7 days Discharge Diet: Clear Liquid Discharge Activity: Resume usual activity Patient Instructions: Pancreatitis (ED), Abdominal Pain (ED), Opioid Safety Print Language: Belarusian Coding Level of Care Code ED Compression Molding Machine Setter for Natalie Kiran
[2024-12-02 09:00] LABS: Hematocrit 41.4 % (37-53); Hemoglobin 13.50 g/dL (11.27-16.99); Mean Corpuscular HGB Conc 32.6 g/dL (30-55); Mean Corpuscular Hemoglobin 29.7 pg (27-33); Mean Corpuscular Volume 91.2 fl (82-101); Nucleated Red Blood Cells % 0 %; Platelet Count 231 10^3/cmm (157-399); Red Blood Count 4.54 10^6/uL (3.85-5.65); White Blood Count 11.86 10^3/uL (3.29-11.43)
[2024-12-02 09:18] LABS: Troponin(5th) Baseline < 6 ng/L (0-15)
[2024-12-02 09:19] LABS: Alanine Aminotransferase 14 U/L (0-41); Albumin Level 4.6 g/dL (3.5-5.2); Alkaline Phosphatase 62 U/L (40-130); Anion Gap 18.1 (5-19); Aspartate Amino Transferase 13 U/L (0-40); Blood Urea Nitrogen 11 mg/dL (6-20); Calcium 10.0 mg/dL (8.5-10.5); Carbon Dioxide 22 mmol/L (22-29); Chloride 102 mmol/L (98-107); Creatinine Clr Calc Pharmacy 119.3216; Globulin 2.5 g/dL (1.3-4.6); Glucose 184 mg/dL (65-115); Lipase 232 U/L (13-60); Osmolality Calculated 290 mOsm/kg (285-295); Potassium 4.1 mmol/L (3.5-5.1); Sodium 138 mmol/L (136-145); Total Protein 7.1 g/dL (6.6-8.7)
[2024-12-02 09:24] LABS: Alcohol Level < 10 mg/dL (0-10)
[2024-12-02 09:27] VITALS: BP 144/82; PULSE 67; O2SAT 98
[2024-12-02 09:59] VITALS: BP 128/86; PULSE 68; O2SAT 100
== END 2024-12-02 10:00 | disposition home or self-care (01) ==
PROVIDERS: Emergency Provider Emergency Medicine; PCP Family Medicine
DX: R07.9 Chest pain, unspecified (principal); K85.90 Acute pancreatitis without necrosis or infection, unspecified; F17.220 Nicotine dependence, chewing tobacco, uncomplicated; E78.5 Hyperlipidemia, unspecified; E11.9 Type 2 diabetes mellitus without complications
CPT/HCPCS: 71045; 80053; 80307; 83690; 84484; 85025; 93005; 96374; 99285; J1885

== ENCOUNTER 2024-12-02 20:33 | Inpatient (IN) | payer OTHER, MEDICAID, SELFPAY ==
[2024-09-11 14:07] VITALS: BP 130/84; BMI 30.8
--- OUTSIDE RECORDS SUMMARY | 2024-12-02 20:39 | XMS_ITS | Clinical Summary ---
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
--- OUTSIDE RECORDS SUMMARY | 2024-12-02 20:39 | XMS_ITS | Encounter Summary ---
Author Organization [facility] Address 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
[2024-12-02 20:47] VITALS: BP 141/51; PULSE 80; RESP 16; TEMP 36.6; O2SAT 99; BMI 27.9
[2024-12-02 20:55] VITALS: BP 141/51; PULSE 80; RESP 16; TEMP 36.6; O2SAT 99
--- NOTE | 2024-12-02 21:07 | ECG_ITS ---
[facility] Test Date: 2024-12-02 Pat Name: Hua [place] Department: Room: Gender: Male Dental Practice Manager: : 1985 Requested By: Jessi Rios Order Number: [id number] Yovani MD: Holger Crump M.D. Measurements Intervals [place] Rate: 68 P: 1 FL: 154 QRS: 37 QRSD: 101 T: 15 QT: 385 QTc: 410 Interpretive Statements SINUS RHYTHM Compared to ECG 12/02/2024 08:45:49 No significant changes Electronically Signed On 12-03-2024 17:46:34 CDT by Holger Crump M.D. [email or web address]
[2024-12-02 21:32] LABS: Glucose Urine UA Negative (Normal); Nitrate Urine Negative (Negative); Specific Gravity, Urine 1.026 (1.005-1.030)
[2024-12-02 21:37] LABS: Add Urine Microscopic? YES
[2024-12-02 21:42] LABS: Hematocrit 41.9 % (37-53); Hemoglobin 13.90 g/dL (11.27-16.99); Mean Corpuscular HGB Conc 33.2 g/dL (30-55); Mean Corpuscular Hemoglobin 29.9 pg (27-33); Mean Corpuscular Volume 90.1 fl (82-101); Nucleated Red Blood Cells % 0 %; Platelet Count 238 10^3/cmm (157-399); Red Blood Count 4.65 10^6/uL (3.85-5.65); White Blood Count 13.66 10^3/uL (3.29-11.43)
--- NOTE | 2024-12-02 22:48 | ED.C_ITS ---
HPI - Psych 2 General: Chief Complaint: Psychiatric Symptoms Stated Complaint: SI Time Seen by Provider: 12/02/24 20:35 History of Present Illness: Patient presents for SI/HI. Selected Entries 12/02/24 20:47 ED Triage Comment PT REPORTS TO [facility] WITH REPORTS OF SI/ HI, PT ENDORS ES HX OF, DENIES P PRADEEP Associated symptoms: Reports depression, homicidal ideation and suicidal ideation Related Data Previous Rx's ?Medication ?Instructions ?Recorded buspirone 10 mg tablet 10 mg PO BID #60 tabs divalproex 500 mg tablet,extended 500 mg PO BID #60 ta bs 08/09/24 release 24 hr (Depakote ER) hydroxyzine HCl 50 mg tablet 50 mg PO QID PRN anxiety/ insomnia 08/09/24 #120 tabs bupropion HCl 150 mg 24 hr tablet, 150 mg PO QAM #30 t abs 10/02/24 extended release (Wellbutrin XL) hydrocodone 5 mg-acetaminophen 325 1 tab PO Q6H PRN pa in #14 tabs 12/02/24 mg tablet ondansetron 4 mg disintegrating 4 mg PO Q6H PRN nausea and 12/02/24 tablet vomiting #14 tabs Allergies Allergy/AdvReac Type Severity Reaction Status Date / Time No Known Allergies Allergy Verified 10/02/24 14:46 Review of Systems 2 Const: Denies: fever(s), chills, body aches or change in appetite ENMT: Denies: throat pain or dental pain Card: Reports: chest pain Resp: Denies: dyspnea GI: Denies: abdominal pain, nausea, vomiting or diarrhea : Reports: flank pain Musc: Denies: neck pain or back pain Skin/Breast: Denies: rash Neuro: Denies: headache(s) Psych: Reports: anxiety, depression, suicidal ideation and homicidal ideation PFS ED 2 PFSH: Medical History (Updated 12/02/24 @ 23:35 by SARAH Vieyra) Hyperlipidemia Smoking Diabetes Metformin discontinued due to diarrhea. Psychiatric care Released from senior care Substance abuse Intellectual disability Anxiety Psychiatric care Family History Other Diabetes Social History Smoking and tobacco/nicotine status: current every day tobacco/nicotine user cigarettes Packs smoked per day: 1 Years cigarettes smoked: 19 and smokeless tobacco Smokeless tobacco user: chewing tobacco Smokeless tobacco details: a can last about a week Quit status (tobacco/nicotine): considering quitting Second hand smoke exposure: Yes Alcohol intake: never Substance/Drug Use: never Adopted: No Caregiver/support person: Yes Lives independently: Yes Household members: family and none Housing: Apartment Marital status: Legally Number of children: 0 Number of grandchildren: 0 Highest education level completed: 9th Grade Current occupational status: unemployed Pets and animals: No Leisure activites: sports, exercise, music, hunting, fishing and other Leisure activities details: helps step dad around the house and watch movies Sexually active: No Do you think of yourself as: Straight/Heterosexual Current gender identity: Male Tiffanie/Rastafarian: Roman Catholic Special tiffanie needs: No Agree to transfusion: Yes Physical Exam 2 Const: COMMON NORMALS: no acute distress, patient oriented x3 and healthy appearing HENMT: COMMON NORMALS: normocephalic and atraumatic HEAD & SCALP: n ormocephalic and atraumatic Eye: COMMON NORMALS: Equal, round and reactive pupils present and EOMs intact bilaterally PUPIL: Yes Equal, round and reactive pupils present Neck/C-Spine: COMMON NORMALS: full ROM and supple Chest: COMMONS NORMALS: normal inspection of the chest and normal palpation of entire chest wall Resp: COMMON NORMALS: normal respiratory effort, No retractions, No use of accessory muscles and clear to auscultation bilaterally AUSCULTATION: clear to auscultation bilaterally Cardio: COMMON NORMALS: regular rate, regular rhythm and No murmurs present (Cardio) RATE: regular rate RHYTHM: regular rhythm GI: COMMON NORMALS: Normal to inspection, nondistended, normoactive bowel sounds present, Soft to palpation, non-tender and no masses PALPATION: Yes Soft to palpation : COMMON NORMALS: Yes no CVA tenderness BLADDER/KIDNEY EXAM: Yes no CVA tenderness Back/Pelvis: COMMON NORMALS: no CVA tenderness Extremity: COMMON NORMALS: normal to inspection and full ROM Neuro: COMMON NORMALS: patient oriented x3, moves all extremities and no focal motor deficits Psych: COMMON NORMALS: mental status grossly normal, Normal thought process present and cooperative THOUGHT PROCESS: Normal thought process present Skin: COMMON NORMALS: no rashes or lesions noted and no wounds GENERAL SKIN EXAM: no rashes or lesions noted Course 2 Consultations: Consultation #1: Dr. Clemons excepted patient Vital Signs: Vital signs: Vital Signs Temperature 97.8 F 12/02/24 20:55 Pulse Rate 80 12/02/24 20:55 Respiratory Rate 16 12/02/24 20:55 Blood Pressure 141/51 12/02/24 20:55 Pulse Oximetry 99 12/02/24 20:55 Oxygen Delivery Me thod Room Air 12/02/24 20:55 MDM - Psych Medical Decision Making Patient is a [age]-year-old gentleman with longstanding history of suicide ideations, depression. He was last seen at this facility in July. He states he is taking his medications and compliant. He states that he is suicidal, and does not have a plan. He is well notes homicide ideations, however will not disclose any more information. All of his laboratory data is now back. He has positive for marijuana, opioids, otherwise negative. Dr. Clemons has accepted the patient. Medical Records I reviewed the patient's medical records. Lab Data 12/02/24 21:35 12/02/24 21:35 Laboratory Results WBC 13.66 10^3/uL (3.29-11.43) H 12/02/24 21:35 RBC 4.65 10^6/uL (3.85-5.65) 12/02/24 21:35 Hgb 13.90 g/dL (11.27-16.99) 12/02/24 21:35 Hct 41.9 % (37-53) 12/02/24 21:35 MCV 90.1 fl (82-101) 12/02/24 21:35 MCH 29.9 pg (27-33) 12/02/24 21:35 MCHC 33.2 g/dL (30-55) 12/02/24 21:35 RDW 13.2 % (12.1-15.1) 12/02/24 21:35 Plt Count 238 10^3/cmm (157-399) 12/02/24 21:35 MPV 10.3 fL (7.4-10.4) 12/02/24 21:35 Neut % (Auto) 62.8 % 12/02/24 21:35 Lymph % (Auto) 26.2 % 12/02/24 21:35 Lucas % (Auto) 9.1 % 12/02/24 21:35 Eos % (Auto) 1.1 % 12/02/24 21:35 Baso % (Auto) 0.4 % 12/02/24 21:35 Neut # (Auto) 8.58 10^3/uL (1.8-7.7) H 12/02/24 21:35 Lymph # (Auto) 3.6 10^3/uL (0.8-4.8) 12/02/24 21:35 Lucas # (Auto) 1.2 10^3/uL (0.2-0.9) H 12/02/24 21:35 Eos # (Auto) 0.2 10^3/uL (0.0-0.8) 12/02/24 21:35 Baso # (Auto) 0.1 10^3/uL (0.0-0.1) 12/02/24 21:35 Nucleated RBC % (auto) 0 % 12/02/24 21:35 Nucleated RBCs # 0.0 /100WBC 12/02/24 21:35 Sodium 139 mmol/L (136-145) 12/02/24 21:35 Potassium 4.3 mmol/L (3.5-5.1) 12/02/24 21:35 Chloride 105 mmol/L (98-107) 12/02/24 21:35 Carbon Dioxide 23 mmol/L (22-29) 12/02/24 21:35 Anion Gap 15.3 (5-19) 12/02/24 21:35 BUN 13 mg/dL (6-20) 12/02/24 21:35 Creatinine 0.7 mg/dL (0.7-1.2) 12/02/24 21:35 GFR Calculation 126.2 mL/min (90-130) 12/02/24 21:35 Glucose 112 mg/dL (65-115) 12/02/24 21: Calculated Osmolality 289 mOsm/kg (285-295) 12/02/24 21:35 Calcium 9.8 mg/dL (8.5-10.5) 12/02/24 21:35 Total Bilirubin 0.5 mg/dL (0.15-1.2) 12/02/24 21:35 AST 14 U/L (0-40) 12/02/24 21:35 ALT 14 U/L (0-41) 12/02/24 21:35 Alkaline Phosphatase 63 U/L (40-130) 12/02/24 21:35 Total Protein 7.2 g/dL (6.6-8.7) 12/02/24 21:35 Albumin 4.6 g/dL (3.5-5.2) 12/02/24 21:35 Globulin 2.6 g/dL (1.3-4.6) 12/02/24 21:35 TSH 5.76 uIU/mL (0.27-4.20) H 12/02/24 21:35 Urine Color Yellow (Yellow) 12/02/24 20: Urine Appearance Clear (CLEAR) 12/02/24: Urine pH 6.5 (5-7) 12/02/24 20:37 Ur Specific [place] 1.026 (1.005-1.030) 12/02/24 20:37 Urine Protein Trace (Negative) A 12/02/24 20:37 Urine Glucose (UA) Negative (Normal) 12/02/24 20:37 Urine Ketones Trace (Negative) 12/02/24 20:37 Urine Blood Negative (Negative) 12/02/24: Urine Nitrate Negative (Negative) 12/02/24:37 Urine Bilirubin Negative (Negative) 12/02/24 20:37 Urine Urobilinogen 1.0 mg/dL (Negative) 12/02/24 20:37 Ur Leukocyte Esterase Trace (Negative) A 12/02/24 20:37 Urine RBC 0-2 /hpf (0-2) 12/02/24 20:37 Urine WBC 0-5 /hpf (0-5) 12/02/24 20:37 Ur Squamous Epith Cells 0-5 /hpf (0-5) 12/02/24 20:37 Amorphous Sediment Not Reportable 12/02/24 20: Urine Bacteria None seen /hpf (NONE) 12/02/24 20:37 Hyaline Casts 2.05 /lpf 12/02/24 20:37 Salicylates < 0.3 mg/dL (3-10) L 12/02/24 21:35 Urine Opiates Screen Positive ng/mL (Negative) H 12/02/24 20:37 Acetaminophen < 5.0 ug/mL (10-30) L 12/02/24 21:35 Ur Barbiturates Screen Negative ng/mL (Negative) 12/02/24 20:37 Valproic Acid 54.1 ug/mL (50-100) 12/02/24 21:35 Ur Phencyclidine Scrn Negative ng/mL (Negative) 12/02/24 20:37 Ur Amphetamines Screen Negative ng/mL (Negative) 12/02/24 20:37 U Benzodiazepines Scrn Negative ng/mL (Negative) 12/02/24 20:37 Urine Cocaine Screen Negative ng/mL (Negative) 12/02/24 20:37 U Marijuana (THC) Screen Positive ng/mL (Negative) H 12/02/24 20:37 Ethyl Alcohol < 10 mg/dL (0-10) 12/02/24 21:35 No radiology studies performed this visit Discharge Plan Discharge Patient Disposition: Xfer Psychiatric Hosp Clinical Impression: Suicidal ideation, Homicidal ideation Condition: Stable Referrals: Pepito Mann MD [Primary Care Provider, [facility]] Discharge Diet: Usual diet Print Language: Malian Coding Level of Care Code ED Eyeglass Lens Generator for Natalie Kiran
[2024-12-02 22:49] LABS: Alanine Aminotransferase 14 U/L (0-41); Albumin Level 4.6 g/dL (3.5-5.2); Alkaline Phosphatase 63 U/L (40-130); Anion Gap 15.3 (5-19); Aspartate Amino Transferase 14 U/L (0-40); Blood Urea Nitrogen 13 mg/dL (6-20); Calcium 9.8 mg/dL (8.5-10.5); Carbon Dioxide 23 mmol/L (22-29); Chloride 105 mmol/L (98-107); Creatinine Clr Calc Pharmacy 136.3675; Globulin 2.6 g/dL (1.3-4.6); Glucose 112 mg/dL (65-115); Osmolality Calculated 289 mOsm/kg (285-295); Potassium 4.3 mmol/L (3.5-5.1); Sodium 139 mmol/L (136-145); Thyroid Stimulating Hormone 5.76 uIU/mL (0.27-4.20); Total Protein 7.2 g/dL (6.6-8.7)
[2024-12-02 22:51] LABS: Acetaminophen < 5.0 ug/mL (10-30); Alcohol Level < 10 mg/dL (0-10); Salicylate < 0.3 mg/dL (3-10)
[2024-12-02 23:01] LABS: PCP Screen Urine Negative (Negative)
--- NOTE | 2024-12-02 23:56 | PC.NURSE ---
96 Hour Involuntary Hold Patient Rights have been read to patient and a copy of the same has been provided to him. Electronics Instructor Shady Choi was present at bedside during the presentation of Rights.
[2024-12-03 00:52] VITALS: RESP 16
--- NOTE | 2024-12-03 01:08 | PC.NURSE ---
due to pt medicated in er, pts vitals were not obtained upon admission. resp 16 charge nurse aware
[2024-12-03 05:56] VITALS: BMI 27.9
[2024-12-03 06:00] VITALS: RESP 14
--- NOTE | 2024-12-03 06:02 | PC.NURSE ---
vitals not done per nurse, pt sleeping soundly, resp. 14
--- NOTE | 2024-12-03 08:03 | W.PM.NPUH&PS ---
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 on the first day as he was upset he was not going to be discharged the day that he was seen for his initial evaluation. He was able to contract for safety outside of the hospital prior to discharge. During the hospitalization, patient had routine laboratory studies which were within normal limits except for few outliers. Additionally there was a general medical evaluation which was also within normal limits and revealed no new acute processes. At the time of discharge, he denied psychosis or lethality. Mood and anxiety were well managed. Patient endorsed a plan to avoid all drugs of abuse, and agreed to follow-up with the aftercare recommendations of the treatment team. Patient was evaluated and deemed to be absent credible lethality, and achieved maximum benefit from inpatient hospitalization, so he was discharged. Meds NPU Home Medications ?Medication ?Instructions ?Recorded ?Confirmed ?Last Taken ?Type buspirone 10 mg tablet 10 mg PO BID #60 tabs 08/09/24 12/03/24 Unknown Rx divalproex 500 mg tablet,extended 500 mg PO BID #60 tabs 08/09/24 12/03/24 Unknown Rx release 24 hr (Depakote ER) hydroxyzine HCl 50 mg tablet 50 mg PO QID PRN anxiety/insomnia 08/09/24 12/03/24 Unknown Rx #120 tabs hydrocodone 5 mg-acetaminophen 325 1 tab PO Q6H PRN pain #14 tabs 12/02/24 12/03/24 Unknown Rx mg tablet ondansetron 4 mg disintegrating 4 mg PO Q6H PRN nausea and 12/02/24 12/03/24 Unknown Rx tablet vomiting #14 tabs trazodone 100 mg tablet 100 mg PO BEDTIME PRN Insomnia 12/03/24 12/03/24 Unknown History Allergies Allergy/AdvReac Type Severity Reaction Status Date / Time No Known Allergies Allergy Verified 10/02/24 14:46 PFSH NPU PFSH: Medical History (Updated 12/02/24 @ 23:35 by SARAH Vieyra) Hyperlipidemia Smoking Diabetes Metformin discontinued due to diarrhea. Psychiatric care Released from shelter Substance abuse Intellectual disability Anxiety Psychiatric care Family History Other Diabetes Social History Smoking and tobacco/nicotine status: current every day tobacco/nicotine user cigarettes Packs smoked per day: 1 Years cigarettes smoked: 19 and smokeless tobacco Smokeless tobacco user: chewing tobacco Smokeless tobacco details: a can last about a week Quit status (tobacco/nicotine): considering quitting Second hand smoke exposure: Yes Alcohol intake: never Substance/Drug Use: never Adopted: No Caregiver/support person: Yes Lives independently: Yes Household members: family and none Housing: Apartment Marital status: Legally Number of children: 0 Number of grandchildren: 0 Highest education level completed: 9th Grade Current occupational status: unemployed Pets and animals: No Leisure activites: sports, exercise, music, hunting, fishing and other Leisure activities details: helps step dad around the house and watch movies Sexually active: No Do you think of yourself as: Straight/Heterosexual Current gender identity: Male Tiffanie/Church: Denominational Special tiffanie needs: No Agree to transfusion: Yes Mental Status Exam MSE Comments: This is an overweight versus obese white male in hospital scrubs with limited grooming and poor eye contact. No abnormal movements except for psychomotor retardation juxtaposed with psychomotor agitation. Uncooperative with exam in moderate to extreme distress. Speech was mostly absent occasional one-word responses or ignoring and normal rate and decreased volume. Mood not described, affect irritable and volatile. Thought process linear. Thought content: Patient did not respond to questions of lethality but did demonstrate aggression towards others through throwing things at them, cursing including towards patient's. There are no delusions reported but he appeared guarded with concern for paranoid or persecutory delusions, he did not report auditory or visual hallucinations and did not appear to be attending to internal stimuli. Attention and concentration were impaired and memory was unable to be assessed but none were formally tested. He was alert and oriented to person and place. Insight, judgment and impulse control are impaired. Vitals/I&O/Wt Last Vital Signs Temp 97.8 F 12/02/24 20:55 Pulse 80 12/02/24 20:55 Resp 14 12/03/24 06:00 BP 141/51 12/02/24 20:55 Pulse Ox 99 12/02/24 20:55 O2 Del Method Room Air 12/03/24 00:54 Weight last 48 hrs Weight 76.204 kg Weight 76.204 kg Data NPU 12/02/24 21:35 12/02/24 21:35 A&P Assessment and plan 1. Anxiety: 2. Substance abuse: 3. Suicidal ideation: 4. Major depressive disorder, recurrent: 5. Paranoia: 6. Cannabis use disorder: 7. Alcohol use: Plan: This is a 39-year-old white male with a long history of mental health and addiction issues with endorsement of trauma with genetic loading for mental health and addiction issues who presents with frequent inpatient hospitalizations which he had not had any here since 2014, but now this represents his third hospitalization this year since June. And before that he had been admitted to other facilities in January or February of 2024. There is a history of major depressive disorder with suicidal ideation and self-injurious behavior, including burning with cigarettes. There is also a presence of anxiety, paranoia, and auditory hallucinations. The patient has a history of substance use, including cannabis and alcohol, which may contribute to the psychiatric symptoms. He was positive for cannabis and opiates on this admission. He was essentially resistant to the conversation and review about this presentation and was fairly nasty on the unit with episodes of throwing milk cartons against the nursing staff window and cursing at people. 1. Continue current medications. 2. Continue every 15 minute checks for safety. 3. Encourage individual, group and milieu therapies. 4. Encourage sober living treatment after discharge at the highest level of care to which he is willing to commit. 5. Get collateral information. 6. Evaluate against the backdrop of the 96-hour hold. PDMP PDMP Reviewed: Not Reviewed Attestations NPU Medical Necessity Statement*: Inpatient hospitalization is medically necessary and the clinically appropriate intervention at this time. We will monitor/initiate medications and make changes as indicated. Likely length of stay 5-7 days. Coding Level of Care Code Acute Code for g Fwd Diagnoses Anxiety F41.9 Substance abuse F19.10 Suicidal ideation R45.851 Major depressive disorder, recurrent F33.9 Paranoia F22 Cannabis use disorder F12.90 Alcohol use F10.90
[2024-12-03] MEDS: divalproex ER 500 mg Tablet (24H) PO ×3 (08:50→19:07)
[2024-12-03 08:54] VITALS: BP 107/73; PULSE 57; RESP 18; O2SAT 98
[2024-12-03 13:29] VITALS: BP 110/70; PULSE 60; O2SAT 98
--- NOTE | 2024-12-03 14:59 | PC.NURSE ---
Patient at the nurses station telling this RN that Araceli called up this morning to the unit and that no one woke him up for the call. Patient did not sign admission forms when arriving to the unit. He is now refusing to sign admission documents and authorization to discuss PHI for his friend Araceli . He then states that when she calls he wants to be able to talk to her. He states I dont want her talking to the nurses who are in the nurses station, the red head, brown hair one...I have a lawsuit on this right now and I told them I did not want to be admitted to this hospital. I'm going to wait and talk to Dr. Clemons .
--- NOTE | 2024-12-03 16:36 | PC.NURSE ---
Hua came to nurse's station, when this nurse said hi there, what can I do for you? He replied, without looking at anyone, don't even talk to me et walked to [facility] et asked if the food was here yet.
--- NOTE | 2024-12-03 17:30 | PC.NURSE ---
1710 Nursing, escorted by Marciano from security approached to let Hua know his food tray was here for him et to give him his scheduled medication. Hua refused both et repeated to get away from me .
--- NOTE | 2024-12-03 17:32 | PC.NURSE ---
1747 Hua walked past another patient, who greeted him in a friendly manner, Hua responded Don't talk to me unkindly et upset the other patient. Witnessed by [facility].
--- NOTE | 2024-12-03 18:16 | PC.NURSE ---
Pt walked up to the nurses station window to the PLYWOOD MATCHER and asked if he could receive his medications that he had refused earlier in the shift. The PLYWOOD MATCHER said that she would not be legally allowed to do that and the IN SHOP SERVICE TECHNICIAN stated that she had already disposed of the medications since he had refused them earlier. The pt stated to the IN SHOP SERVICE TECHNICIAN I am not talking to you, shut up . The pt was informed that he should not be talking to people in such manners and that since he refused the medications earlier, he could not receive them now as they have been disposed of. The pt continued to be rude to the IN SHOP SERVICE TECHNICIAN and the pt was instructed to return to his room to which the pt said Shut the fuck up bitch and threw his cartoon of milk onto the nurses station window and stormed off to his room. Security was called and w/ staff present went to pt room to educated on proper manners & medication administration, pt was argumentative but laid back down in bed and pulled the covers over himself. respirations even and unlabored.
--- NOTE | 2024-12-03 19:58 | PC.NURSE ---
pt refused vs, nurse notified, resp 19
--- NOTE | 2024-12-03 20:05 | PC.NURSE ---
1744 Patient approached SHOVELER et wanted the scheduled medications he'd refused. She advised him she is not able to give medications et he'd have to let the nurse help him; et this nurse was present et attempted to advise him that she was not able et that the medications he'd refused were just destroyed, et we'd have to grab new, however he became beligerant et started walking to his room, came back still shouting profanities et threw a carton of milk at the window. He then retreated to his room et took off his shirt. Other staff attempted to talk with him, to which he was hateful et profane telling all to get away from (him) . Dr. Clemons was present for the event et aware. Security requested to walk through, et talk to Hua. Hua was observed to say he does not like any female nurses here et will not talk to anyone but male nurses. Dr. Clemons advised if he can keep his self control in check, we do not need to intervene with behavioral medications, thus nursing continues to monitor for needs et changes, et female staff attempts to stay out of his room. It is advised to do patient care in groups of two or more staff plus security as needed for safety.
--- NOTE | 2024-12-04 08:11 | PC.NURSE ---
breakfast this nurse attempted to wake patient for breakfast. he stated 'leave me alone i dont want anything from you guys' i educated that breakfast would be in the day room for a limited amount of time and then it would be discarded. 'I dont care'
--- NOTE | 2024-12-04 11:32 | PC.NURSE ---
Pt stood up at nurses station window staring into the window at the staff present who were assisting other pts at the time. The pt proceeded to stomp down to the dayroom to where the MANAGER LIFE was sitting w/ another pt to ask his request, he also stated to the MANAGER LIFE that No one was fucking helping me at the window , although the pt was just staring into the nurses station and not verbalizing what he needed. The MANAGER LIFE assisted the pt and pt then stomped off back down to his room.
--- NOTE | 2024-12-04 15:52 | PC.NURSE ---
Pt. stated he would not eat his meals because they did not come sealed. Signee asked why and pt. replied he did not trust anyone because of his last stay here. Signee gave pt. a couple bags of chips which he thanked signee for.
[2024-12-04] MEDS: blistex lip oint 7 gm Tube 1 APPLIC TOPICAL (17:37)
[2024-12-04] MEDS: divalproex ER 500 mg Tablet (24H) PO (17:39)
--- NOTE | 2024-12-04 18:12 | P.NPUPN_ITS ---
Subjective NPU 2 Subjective: 39-year-old male with a history of multi ple inpatient hospitalizations with a history of borderline personality traits, antisocial personality traits, and intermittent intermittent explosive disorder currently admitted with suicidal ideation. Patient continued to state that he wanted to leave here so that he could attend his several court hearing on 12/06/2024. He had reported that he had been compliant with his medications on an outpatient basis. He had reported that he was feeling okay now. He had continued to appear to show evidence of poor frustration tolerance here on the unit. He had reported that he had been feeling more upset recently but denied any drug or alcohol use. The patient had reported that he was no longer feeling suicidal. He had reported chronic marijuana use for several years. Mental Status Exam 2 MSE Comments: This is an overweight versus obese white male in hospital scrubs with limited grooming and poor eye contact. No abnormal movements except for psychomotor retardation juxtaposed with psychomotor agitation. He was minimally cooperative with exam in moderate to extreme distress. Speech was productive with normal rate and decreased volume. Mood described as fine. His affect was irritable and volatile. Thought process was linear. Thought content: Patient did not respond to questions of lethality but did demonstrate aggression towards others through throwing things at them, cursing including towards patient's. There are no delusions reported but he appeared guarded with concern for paranoid or persecutory delusions, he did not report auditory or visual hallucinations and did not appear to be attending to internal stimuli. Attention and concentration were impaired and memory was unable to be assessed but none were formally tested. He was alert and oriented to person and place. Insight, judgment and impulse control are impaired. Vitals/I&O/Wt Last Vital Signs Temp 97.8 F 12/02/24 20:55 Pulse 60 12/03/24 13:29 Resp 18 12/03/24 08:54 BP 110/70 12/03/24 13:29 Pulse Ox 98 12/03/24 13:29 O2 Del Method Room Air 12/03/24 00:54 Weight last 48 hrs Weight 76.204 kg Weight 76.204 kg Data NPU 12/02/24 21:35 12/02/24 21:35 A&P Assessment and plan 1. Anxiety: 2. Substance abuse: 3. Suicidal ideation: 4. Major depressive disorder, recurrent: 5. Paranoia: 6. Cannabis use disorder: Plan: This is a 39-year-old white male with a long history of mental health and addiction issues with endorsement of trauma with genetic loading for mental health and addiction issues who presents with frequent inpatient hospitalizations which he had not had any here since 2014, but now this represents his third hospitalization this year since June. And before that he had been admitted to other facilities in January or February of 2024. There is a history of major depressive disorder with suicidal ideation and self-injurious behavior, including burning with cigarettes. There is also a presence of anxiety, paranoia, and auditory hallucinations. The patient has a history of substance use, including cannabis and alcohol, which may contribute to the psychiatric symptoms. He was positive for cannabis and opiates on this admission. He was essentially resistant to the conversation and review about this presentation and was fairly nasty on the unit with episodes of throwing milk cartons against the nursing staff window and cursing at people. 1. Continue current medications including Wellbutrin xl 150mg in am. 2. Continue every 15 minute checks for safety. 3. Encourage individual, group and milieu therapies. 4. Encourage sober living treatment after discharge at the highest level of care to which he is willing to commit. 5. Get collateral information. 6. Evaluate against the backdrop of the 96-hour hold. PDMP PDMP Reviewed: Not Reviewed Involuntary Hold Information 2 Hold Status: Legal Status: 96 Hour Hold Date/Time Hold Expires: 12/08/24 @ 0001 Attestations NPU 2 Medical Necessity Statement*: Inpatient hospitalization is medically necessary and the clinically appropriate intervention at this time. We will monitor/initiate medications and make changes as indicated. His likely length of stay is 2-3 days. Coding Level of Care Code Acute Code for g Fwd Diagnoses Anxiety F41.9 Substance abuse F19.10 Suicidal ideation R45.851 Major depressive disorder, recurrent F33.9 Paranoia F22 Cannabis use disorder F12.90
[2024-12-04 21:05] VITALS: BP 129/77; PULSE 88; RESP 18; TEMP 36.3; O2SAT 98
[2024-12-05 06:00] VITALS: RESP 16
--- NOTE | 2024-12-05 06:47 | PC.NURSE ---
vitals not obtained per nurse, pt history of refusing and pt sleeping soundly, resp 16
[2024-12-05] MEDS: divalproex ER 500 mg Tablet (24H) PO (08:29)
[2024-12-05] MEDS: blistex lip oint 7 gm Tube 1 APPLIC TOPICAL (10:44)
--- NOTE | 2024-12-05 13:06 | W.PM.NPUDCS ---
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 first day as he was upset he was not going to be discharged the day that he was seen for his initial evaluation. He was able to contract for safety outside of the hospital prior to discharge. During the hospitalization, patient had routine laboratory studies which were within normal limits except for few outliers. Additionally there was a general medical evaluation which was also within normal limits and revealed no new acute processes. At the time of discharge, he denied psychosis or lethality. Mood and anxiety were well managed. Patient endorsed a plan to avoid all drugs of abuse, and agreed to follow-up with the aftercare recommendations of the treatment team. Patient was evaluated and deemed to be absent credible lethality, and achieved maximum benefit from inpatient hospitalization, so he was discharged. Hospital Course Hospital Course The patient was restarted on his outpatient medications with no changes made during his hospitalization. During the hospitalization, the patient had routine laboratory studies which were within normal limits except for a few outliers.? Additionally, there was a general medical evaluation which was also within normal limits and revealed no new acute processes.? At the time of discharge, lethality was denied and psychosis was absent. ? Mood and anxiety were well managed.? The patient endorsed a plan to avoid all drugs of abuse and follow up with the aftercare recommendations of the treatment team.? The patient was evaluated and deemed to be absent credible lethality and had achieved the maximum benefit from an inpatient hospitalization, and so was discharged. ? Involuntary Hold Information Hold Status: Legal Status: 96 Hour Hold Date/Time Hold Expires: 12/08/24 @ 0001 Mental Status Exam MSE Comments: This is an overweight versus obese white male in hospital scrubs with limited grooming and poor eye contact. No abnormal movements except for psychomotor retardation juxtaposed with psychomotor agitation. He was cooperative with exam in no acute distress. Speech was productive with normal rate and normal volume. Mood described as good. His affect was euthymic. Thought process was linear. Thought content: He denied suicidal or homicidal ideation. There is no evidence of delusional thinking. He denied any auditory or visual hallucinations and did not appear to be responding to internal stimuli. His attention span appeared fair. He was alert and oriented to person, place, time, and situation. His insight is poor. His judgment and impulse control appeared adequate at discharge. Discharge Data Studies Completed and Pending: Laboratory Results WBC 13.66 10^3/uL (3. 29-11.43) H 12/02/24 21:35 RBC 4.65 10^6/uL (3.8 5-5.65) 12/02/24 21:35 Hgb 13.90 g/dL (11.27 -16.99) 12/02/24 21:35 Hct 41.9 % (37-53) 12/02/24 21:35 MCV 90.1 fl (82-101) 12/02/24 21: MCH 29.9 pg (27-33) 12/02/24 21:35 MCHC 33.2 g/dL (30-55) 12/02/24 21:35 RDW 13.2 % (12.1-15.1 ) 12/02/24 21:35 Plt Count 238 10^3/cmm (157 -399) 12/02/24 21:35 MPV 10.3 fL (7.4-10.4 ) 12/02/24 21:35 Neut % (Auto) 62.8 % 12/02/24 21:35 Lymph % (Auto) 26.2 % 12/02/24 21:35 [place] % (Auto) 9.1 % 12/02/24 21:35 Eos % (Auto) 1.1 % 12/02/24 21:35 Baso % (Auto) 0.4 % 12/02/24 21:35 Neut # (Auto) 8.58 10^3/uL (1.8 -7.7) H 12/02/24 21:35 Lymph # (Auto) 3.6 10^3/uL (0.8- 4.8) 12/02/24 21:35 [place] # (Auto) 1.2 10^3/uL (0.2- 0.9) H 12/02/24 21:35 Eos # (Auto) 0.2 10^3/uL (0.0- 0.8) 12/02/24 21:35 Baso # (Auto) 0.1 10^3/uL (0.0- 0.1) 12/02/24 21:35 Nucleated RBC % (a uto) 0 % 12/02/24 21:35 Nucleated RBCs # 0.0 /100WBC 12/02/24 21:35 Sodium 139 mmol/L (136-1 45) 12/02/24 21:35 Potassium 4.3 mmol/L (3.5-5 .1) 12/02/24 21:35 Chloride 105 mmol/L (98-10 7) 12/02/24 21:35 Carbon Dioxide 23 mmol/L (22-29) 12/02/24 21:35 Anion Gap 15.3 (5-19) 12/02/24 21:35 BUN 13 mg/dL (6-20) 12/02/24 21:35 Creatinine 0.7 mg/dL (0.7-1. 2) 12/02/24 21:35 GFR Calculation 126.2 mL/min (90- 130) 12/02/24 21:35 Glucose 112 mg/dL (65-115 ) 12/02/24 21:35 Calculated Osmolal ity 289 mOsm/kg (285- 295) 12/02/24 21:35 Calcium 9.8 mg/dL (8.5-10 .5) 12/02/24 21:35 Total Bilirubin 0.5 mg/dL (0.15-1 .2) 12/02/24 21:35 AST 14 U/L (0-40) 12/02/24 21:35 ALT 14 U/L (0-41) 12/02/24 21: Alkaline Phosphata se 63 U/L (40-130) 12/02/24: Total Protein 7.2 g/dL (6.6-8.7 ) 12/02/24: Albumin 4.6 g/dL (3.5-5.2 ) 12/02/24: Globulin 2.6 g/dL (1.3-4.6 ) 12/02/24 21: TSH 5.76 uIU/mL (0.27 -4.20) H 12/02/24 21:35 Urine Color Yellow (Yellow) 12/02/24 20:37 Urine Appearance Clear (CLEAR) 12/02/24: Urine pH 6.5 (5-7) 12/02/24 20:37 Ur Specific Gravit y 1.026 (1.005-1.0 30) 12/02/24 20:37 Urine Protein Trace (Negative) A 12/02/24 20:37 Urine Glucose (UA) Negative (Normal ) 12/02/24 20:37 Urine Ketones Trace (Negative) 12/02/24 20: Urine Blood Negative (Negati ve) 12/02/24 20:37 Urine Nitrate Negative (Negati ve) 12/02/24 20: Urine Bilirubin Negative (Negati ve) 12/02/24 20: Urine Urobilinogen 1.0 mg/dL (Negati ve) 12/02/24 20:37 Ur Leukocyte Marilee ase Trace (Negative) A 12/02/24:37 Urine RBC 0-2 /hpf (0-2) 12/02/24 20:37 Urine WBC 0-5 /hpf (0-5) 12/02/24 20:37 Ur Squamous Epith Cells 0-5 /hpf (0-5) 12/02/24 20:37 Amorphous Sediment Not Reportable 12/02/24 20:37 Urine Bacteria None seen /hpf (N ONE) 12/02/24 20:37 Hyaline Casts 2.05 /lpf 12/02/24 20:37 Salicylates < 0.3 mg/dL (3-10 ) L 12/02/24 21:35 Urine Opiates Scre en Positive ng/mL (N egative) H 12/02/24 20:37 Acetaminophen < 5.0 ug/mL (10-3 0) L 12/02/24 21:35 Ur Barbiturates Sc reen Negative ng/mL (N egative) 12/02/24 20:37 Valproic Acid 54.1 ug/mL (50-10 0) 12/02/24 21:35 Ur Phencyclidine S crn Negative ng/mL (N egative) 12/02/24 20:37 Ur Amphetamines Sc reen Negative ng/mL (N egative) 12/02/24 20:37 U Benzodiazepines Scrn Negative ng/mL (N egative) 12/02/24 20:37 Urine Cocaine Scre en Negative ng/mL (N egative) 12/02/24 20:37 U Marijuana (THC) Screen Positive ng/mL (N egative) H 12/02/24 20:37 Ethyl Alcohol < 10 mg/dL (0-10) 12/02/24 21:35 Vitals: Last Vital Signs Temp 97.4 F L 12/04/24 21:05 Pulse 88 12/04/24 21:05 Resp 16 12/05/24 06:00 BP 129/77 12/04/24 21:05 Pulse Ox 98 12/04/24 21:05 O2 Del Method Room Air 12/04/24 21:05 Discharge Plan Discharge Patient Disposition: Home Condition: Stable Prescriptions: Continued hydrocodone-acetaminophen 5-325 mg tablet 1 tab PO Q6H PRN (Reason: pain) Qty: 14 0RF ondansetron 4 mg tablet,disintegrating 4 mg PO Q6H PRN (Reason: nausea and vomiting) Qty: 14 0RF hydroxyzine HCl 50 mg tablet 50 mg PO QID PRN (Reason: anxiety/insomnia) 30 Days Qty: 120 2RF trazodone 100 mg tablet 100 mg PO BEDTIME PRN (Reason: Insomnia) 30 Days Qty: 30 1RF buspirone 10 mg tablet 10 mg PO BID 30 Days Qty: 60 2RF divalproex [Depakote ER] 500 mg tablet extended release 24 hr 500 mg PO BID 30 Days Qty: 60 2RF Discharge Order = DC NOW: Discharge Order (Routine); Ordered 12/05/24 Ordered By: Connor Montero Referrals: [facility] [Outside] - 12/07/24 8:00 am Referral Note: Hospital follow up with Sandee Mann,Pepito Vallecillo MD [Primary Care Provider, Family Practice] Discharge Diet: Usual diet Discharge Activity: Resume usual activity Patient Instructions: Depression (DC), Opioid Safety, Patient Portal & Ronda Instructions Discharge Attestations NPU Time Spent in Discharge Care*: less than 30 min Specific Discharge Activities: Specific discharge activities: educating patient, discussing with family service caseworker/social workers/dc planners and documenting/other paperwork Coding Level of Care Code Acute Code for Chg Fwd Diagnoses Anxiety F41.9 Substance abuse F19.10 Suicidal ideation R45.851 Major depressive disorder, recurrent F33.9 Paranoia F22 Cannabis use disorder F12.90
[2024-12-05 13:12] VITALS: BP 129/77; PULSE 88; RESP 16; TEMP 36.3; O2SAT 98
[2024-12-05 13:46] VITALS: BP 139/94; PULSE 83; RESP 15; TEMP 37.2; O2SAT 97
== END 2024-12-05 14:27 | disposition home or self-care (01) | DRG 885 ==
LOC: ER 23:03 → ER IP 23:50 → NP 12-03 00:28
PROVIDERS: Admitting Provider Psychiatry & Neurology Psychiatry; Emergency Provider Physician Assistant; PCP Family Medicine; Visit Provider Psychiatry & Neurology Psychiatry
DX: F33.9 Major depressive disorder, recurrent, unspecified (principal); F41.9 Anxiety disorder, unspecified; F22 Delusional disorders; F12.90 Cannabis use, unspecified, uncomplicated; E66.9 Obesity, unspecified; Z68.28 Body mass index [BMI] 28.0-28.9, adult; E78.5 Hyperlipidemia, unspecified; E11.9 Type 2 diabetes mellitus without complications; F79 Unspecified intellectual disabilities; F10.90 Alcohol use, unspecified, uncomplicated
CPT/HCPCS: 36415; 80053; 80164; 80306; 80307; 81001; 84443; 85025; 93005; 97165; 99285; J9999

== ENCOUNTER 2024-12-06 21:30 | Inpatient (IN) | payer OTHER, MEDICAID, SELFPAY ==
[2024-09-11 14:07] VITALS: BP 130/84; BMI 30.8
[2024-12-06 21:30] VITALS: BP 121/82; PULSE 85; RESP 16; TEMP 36.7; O2SAT 95; BMI 26.2
--- OUTSIDE RECORDS SUMMARY | 2024-12-06 21:42 | XMS_ITS | Clinical Summary ---
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
--- OUTSIDE RECORDS SUMMARY | 2024-12-06 21:42 | XMS_ITS | Encounter Summary ---
Author Organization [facility] Address 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
[2024-12-06 22:08] LABS: Hematocrit 43.7 % (37-53); Hemoglobin 14.90 g/dL (11.27-16.99); Mean Corpuscular HGB Conc 34.1 g/dL (30-55); Mean Corpuscular Hemoglobin 30.2 pg (27-33); Mean Corpuscular Volume 88.6 fl (82-101); Nucleated Red Blood Cells % 0 %; Platelet Count 276 10^3/cmm (157-399); Red Blood Count 4.93 10^6/uL (3.85-5.65); White Blood Count 12.78 10^3/uL (3.29-11.43)
[2024-12-06 22:16] LABS: PCP Screen Urine Negative (Negative)
[2024-12-06] MEDS: diphenhydrAMINE 50 mg/mL SDV 1mL IM (22:25)
[2024-12-06] MEDS: haloperidol inj 5 mg/mL INJ 1 mL IM (22:25)
[2024-12-06] MEDS: LORazepam 1 MG/0.5 ML injection 2 MG IM (22:25)
--- NOTE | 2024-12-06 22:25 | PC.NURSE ---
96 Hour Involuntary Hold Patient Rights have been reviewed with the patient and a copy of the same has been provided to him. Border Inspector Shady Choi was present at bedside during the presentation of Rights.
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
[2024-12-07 00:02] LABS: Alanine Aminotransferase 16 U/L (0-41); Albumin Level 4.9 g/dL (3.5-5.2); Alkaline Phosphatase 69 U/L (40-130); Anion Gap 15.9 (5-19); Aspartate Amino Transferase 17 U/L (0-40); Blood Urea Nitrogen 11 mg/dL (6-20); Calcium 10.0 mg/dL (8.5-10.5); Carbon Dioxide 26 mmol/L (22-29); Chloride 101 mmol/L (98-107); Creatinine Clr Calc Pharmacy 103.2076; Globulin 3.4 g/dL (1.3-4.6); Glucose 94 mg/dL (65-115); Osmolality Calculated 287 mOsm/kg (285-295); Potassium 3.9 mmol/L (3.5-5.1); Sodium 139 mmol/L (136-145); Total Protein 8.3 g/dL (6.6-8.7)
[2024-12-07 00:05] LABS: Acetaminophen < 5.0 ug/mL (10-30); Alcohol Level < 10 mg/dL (0-10); Salicylate < 0.3 mg/dL (3-10)
[2024-12-07 00:37] VITALS: BP 103/71; PULSE 79; RESP 16; O2SAT 93
[2024-12-07 06:00] VITALS: RESP 14
--- NOTE | 2024-12-07 06:34 | PC.NURSE ---
pt vitals not done per nurse, resp 14
[2024-12-07] MEDS: divalproex ER 500 mg Tablet (24H) PO ×2 (10:51→17:06)
--- NOTE | 2024-12-07 18:01 | P.NPUHP_ITS ---
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 MEDICAL HISTORY: The patient reports a history of stomach ulcers but denies any head injuries/seizures/surgeries. FAMILY HISTORY: Unobtainable at this time due to patient's current mental status. Per records: Family history of schizophrenia in grandparents. PAST PSYCHIATRIC HISTORY: Patient does report that he is without children and currently unemployed. He denies any substance abuse but refused to provide a urine drug screen. Otherwise unable to obtain at this time. 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 It is unclear if he currently has any legal problems. Hospital Course He slowly acclimated to the individual, group and milieu therapies. He presented endorsing depression, anxiety, suicidality but he denied any problems with his addiction issues at admission but he was positive for cannabis. He reports that significant psychosocial stressors including being homeles, being at the [facility] and continued challenges with his relationship with his significant other. He was continued on his previous medications. Continuing the medications, abstinence from substances as well being in the treatment milieu led to a positive response. He worked with the social work team to establish appropriate follow-up services and was connected to appropriate community resources. He had significant improvement during the hospitalization which had included a restraint on the first day as he was upset he was not going to be discharged the day that he was seen for his initial evaluation. He was able to contract for safety outside of the hospital prior to discharge. During the hospitalization, patient had routine laboratory studies which were within normal limits except for few outliers. Additionally there was a general medical evaluation which was also within normal limits and revealed no new acute processes. At the time of discharge, he denied psychosis or lethality. Mood and anxiety were well managed. Patient endorsed a plan to avoid all drugs of abuse, and agreed to follow-up with the aftercare recommendations of the treatment team. Patient was evaluated and deemed to be absent credible lethality, and achieved maximum benefit from inpatient hospitalization, so he was discharged. Hospital Course Hospital Course The patient was restarted on his outpatient medications with no changes made during his hospitalization. During the hospitalization, the patient had routine laboratory studies which were within normal limits except for a few outliers.? Additionally, there was a general medical evaluation which was also within normal limits and revealed no new acute processes.? At the time of discharge, lethality was denied and psychosis was absent. ? Mood and anxiety were well managed.? The patient endorsed a plan to avoid all drugs of abuse and follow up with the aftercare recommendations of the treatment team.? The patient was evaluated and deemed to be absent credible lethality and had achieved the maximum benefit from an inpatient hospitalization, and so was discharged. ? Meds NPU Home Medications ?Medication ?Instructions ?Recorded ?Confirmed ?Last Taken ?Type buspirone 10 mg tablet 10 mg PO BID 30 days #60 tab s 12/05/24 12/07/24 Unknown Rx divalproex 500 mg tablet,extended 500 mg PO BID 30 day s #60 tabs 12/05/24 12/07/24 Unknown Rx release 24 hr (Depakote ER) hydroxyzine HCl 50 mg tablet 50 mg PO QID PRN anxiety/ insomnia 12/05/24 12/07/24 Unknown Rx 30 days #120 tabs trazodone 100 mg tablet 100 mg PO BEDTIME PRN Insomn ia 30 12/05/24 12/07/24 Unknown Rx days #30 tabs Allergies Allergy/AdvReac Type Severity Reaction Status Date / Time No Known Allergies Allergy Verified 10/02/24 14:46 PFSH NPU 2 PFSH: Medical History Hyperlipidemia Smoking Diabetes Metformin discontinued due to diarrhea. [facility] Substance abuse Intellectual disability Anxiety Psychiatric care Family History Other Diabetes Social History Smoking and tobacco/nicotine status: current every day tobacco/nicotine user cigarettes Packs smoked per day: 1 Years cigarettes smoked: 19 and smokeless tobacco Smokeless tobacco user: chewing tobacco Smokeless tobacco details: a can last about a week Quit status (tobacco/nicotine): considering quitting Second hand smoke exposure: Yes Alcohol intake: never Substance/Drug Use: never Adopted: No Caregiver/support person: Yes Lives independently: Yes Household members: family and none Housing: Apartment Marital status: Legally Number of children: 0 Number of grandchildren: 0 Highest education level completed: 9th Grade Current occupational status: unemployed Pets and animals: No Leisure activites: sports, exercise, music, hunting, fishing and other Leisure activities details: helps step dad around the house and watch movies Sexually active: No Do you think of yourself as: Straight/Heterosexual Current gender identity: Male Tiffanie/Scientologist: Spiritism Special tiffanie needs: No Agree to transfusion: Yes Mental Status Exam 2 MSE Comments: This is an overweight versus obese white male in hospital scrubs with limited grooming and poor eye contact. No abnormal movements except for psychomotor retardation. He was uncooperative with exam in mild to moderate distress. Speech was mostly absent occasional one-word responses or ignoring and normal rate and decreased volume. Mood not endorsed. His affect was subdued. Thought process : nonlinear. Thought content: Patient did not respond to questions of lethality but proceeded to curse to this senior grant writer. There are no delusions reported but he appeared guarded with concern for paranoid or persecutory delusions, he did not report auditory or visual hallucinations and did not appear to be attending to internal stimuli. Attention and concentration were impaired and memory was unable to be assessed but none were formally tested. He was alert and oriented to person and place. Insight, judgment and impulse control are impaired. Vitals/I&O/Wt Last Vital Signs Temp 98.0 F 12/06/24 21:30 Pulse 79 12/07/24 00:37 Resp 14 12/07/24 06:00 BP 103/71 12/07/24 00:37 Pulse Ox 93 12/07/24 00:37 O2 Del Method Room Air 12/07/24 00:38 Weight last 48 hrs Weight 71.668 kg Data NPU 12/06/24 21:56 12/06/24 21:56 A&P Assessment and plan 1. Acute psychosis: 2. Borderline personality disorder: 3. Suicidal ideation: 4. Intermittent explosive disorder: Plan: 39-year-old male recently discharged from the unit 2 days ago with the sudden development of acute paranoia and reemergence of his suicidality with no other reported changes since his discharge less than 36 hours ago. #1.? Engage patient in individual milieu and group therapy. #2?? Recommend sober living treatment at the highest level of care to which the patient is willing to commit #3??? Restart outpatient medications.? #4?? TO-15 minute checks? #5?? Will attempt to gather collateral information PDMP PDMP Reviewed: Not Reviewed Involuntary Hold Information 2 Hold Status: Legal Status: 96 Hour Hold Date/Time Hold Expires: 12/12/34 @ 22:15 Attestations NPU 2 Medical Necessity Statement*: Inpatient hospitalization is medically necessary and the clinically appropriate intervention at this time. We will monitor/initiate medications and make changes as indicated. He will be in the hospital for over 2 midnights. Likely length of stay 4 to 7 days. Coding Level of Care Code Acute Code for [facility] Fwd Diagnoses Acute psychosis F23 Borderline personality disorder F60.3 Suicidal ideation R45.851 Intermittent explosive disorder F63.81
[2024-12-07 20:00] VITALS: BP 114/69; PULSE 65; RESP 16; TEMP 36.7; O2SAT 99
[2024-12-08 06:00] VITALS: BP 103/68; PULSE 62; RESP 16; TEMP 36.6; O2SAT 98
[2024-12-08] MEDS: divalproex ER 500 mg Tablet (24H) PO (08:09)
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
--- NOTE | 2024-12-08 13:30 | PC.NURSE ---
pt refused vitals. this software writer ask if they could do his vitals he shock his head no. nurse notifed
--- NOTE | 2024-12-08 15:10 | P.NPUDS_ITS ---
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 Prolixin, hydroxyzine. PAST MEDICAL HISTORY: The patient reports a history of stomach ulcers but denies any head injuries/seizures/surgeries. FAMILY HISTORY: Unobtainable at this time due to patient's current mental status. Per records: Family history of schizophrenia in grandparents. PAST PSYCHIATRIC HISTORY: Patient does report that he is without children and currently unemployed. He denies any substance abuse but refused to provide a urine drug screen. Otherwise unable to obtain at this time. 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 It is unclear if he currently has any legal problems. Hospital Course He slowly acclimated to the individual, group and milieu therapies. He presented endorsing depression, anxiety, suicidality but he denied any problems with his addiction issues at admission but he was positive for cannabis. He reports that significant psychosocial stressors including being homeles, being at the intermediate and continued challenges with his relationship with his significant other. He was continued on his previous medications. Continuing the medications, abstinence from substances as well being in the treatment milieu led to a positive response. He worked with the social work team to establish appropriate follow-up services and was connected to appropriate community resources. He had significant improvement during the hospitalization which had included a restraint on the first day as he was upset he was not going to be discharged the day that he was seen for his initial evaluation. He was able to contract for safety outside of the hospital prior to discharge. During the hospitalization, patient had routine laboratory studies which were within normal limits except for few outliers. Additionally there was a general medical evaluation which was also within normal limits and revealed no new acute processes. At the time of discharge, he denied psychosis or lethality. Mood and anxiety were well managed. Patient endorsed a plan to avoid all drugs of abuse, and agreed to follow-up with the aftercare recommendations of the treatment team. Patient was evaluated and deemed to be absent credible lethality, and achieved maximum benefit from inpatient hospitalization, so he was discharged. Hospital Course Hospital Course The patient was restarted on his outpatient medications with no changes made during his hospitalization. During the hospitalization, the patient had routine laboratory studies which were within normal limits except for a few outliers.? Additionally, there was a general medical evaluation which was also within normal limits and revealed no new acute processes.? At the time of discharge, lethality was denied and psychosis was absent. ? Mood and anxiety were well managed.? The patient endorsed a plan to avoid all drugs of abuse and follow up with the aftercare recommendations of the treatment team.? The patient was evaluated and deemed to be absent credible lethality and had achieved the maximum benefit from an inpatient hospitalization, and so was discharged. ? Hospital Course Hospital Course The patient was started on paliperidone and titrated up to a dose of 6 mg at night on the day of discharge to target paranoia and explosive outburst. BuSpar was discontinued due to lack of efficacy. Depakote ER remained as prescribed. The patient was agreeable to continuing with outpatient services. He had reported resolution in regards to his suicidal ideation. He had acknowledged that he had problems with his anger and was willing to continue outpatient medication management and psychotherapy. During the hospitalization, the patient had routine laboratory studies which were within normal limits except for a few outliers.? Additionally, there was a general medical evaluation which was also within normal limits and revealed no new acute processes.? At the time of discharge, lethality was denied and psychosis was resolving.? Mood and anxiety were well managed.? The patient endorsed a plan to avoid all drugs of abuse and follow up with the aftercare recommendations of the treatment team.? The patient was evaluated and deemed to be absent credible lethality and had achieved the maximum benefit from an inpatient hospitalization, and so was discharged. ? Involuntary Hold Information Hold Status: Legal Status: 96 Hour Hold Date/Time Hold Expires: 12/12/34 @ 22:15 Mental Status Exam MSE Comments: This is an overweight versus obese white male in hospital scrubs with limited grooming and poor eye contact. No abnormal movements except for psychomotor retardation juxtaposed with psychomotor agitation. He was cooperative with exam in no acute distress. Speech was productive with normal rate and normal volume. Mood described as good. His affect was euthymic. Thought process was linear. Thought content: He denied suicidal or homicidal ideation. There is no evidence of delusional thinking. He denied any auditory or visual hallucinations and did not appear to be responding to internal stimuli. His attention span appeared fair. He was alert and oriented to person, place, time, and situation. His insight is poor. His judgment and impulse control appeared adequate at discharge. Discharge Data Studies Completed and Pending: Laboratory Results WBC 12.78 10^3/uL (3. 29-11.43) H 12/06/24 21:56 RBC 4.93 10^6/uL (3.8 5-5.65) 12/06/24 21:56 Hgb 14.90 g/dL (11.27 -16.99) 12/06/24 21:56 Hct 43.7 % (37-53) 12/06/24 21:56 MCV 88.6 fl (82-101) 12/06/24 21:56 MCH 30.2 pg (27-33) 12/06/24 21:56 MCHC 34.1 g/dL (30-55) 12/06/24 21:56 RDW 12.9 % (12.1-15.1 ) 12/06/24 21:56 Plt Count 276 10^3/cmm (157 -399) 12/06/24 21:56 MPV 10.2 fL (7.4-10.4 ) 12/06/24 21:56 Neut % (Auto) 62.7 % 12/06/24 21:56 Lymph % (Auto) 26.7 % 12/06/24 21:56 [place] % (Auto) 9.3 % 12/06/24 21:56 Eos % (Auto) 0.6 % 12/06/24 21:56 Baso % (Auto) 0.4 % 12/06/24 21:56 Neut # (Auto) 8.01 10^3/uL (1.8 -7.7) H 12/06/24 21:56 Lymph # (Auto) 3.4 10^3/uL (0.8- 4.8) 12/06/24 21:56 [place] # (Auto) 1.2 10^3/uL (0.2- 0.9) H 12/06/24 21:56 Eos # (Auto) 0.1 10^3/uL (0.0- 0.8) 12/06/24 21:56 Baso # (Auto) 0.1 10^3/uL (0.0- 0.1) 12/06/24 21:56 Nucleated RBC % (a uto) 0 % 12/06/24 21:56 Nucleated RBCs # 0.0 /100WBC 12/06/24 21:56 Sodium 139 mmol/L (136-1 45) 12/06/24 21:56 Potassium 3.9 mmol/L (3.5-5 .1) 12/06/24 21:56 Chloride 101 mmol/L (98-10 7) 12/06/24 21:56 Carbon Dioxide 26 mmol/L (22-29) 12/06/24 21:56 Anion Gap 15.9 (5-19) 12/06/24 21:56 BUN 11 mg/dL (6-20) 12/06/24 21:56 Creatinine 0.9 mg/dL (0.7-1. 2) 12/06/24 21:56 GFR Calculation 94.4 mL/min (90-1 30) 12/06/24 21:56 Glucose 94 mg/dL (65-115) 12/06/24 21:56 Calculated Osmolal ity 287 mOsm/kg (285- 295) 12/06/24 21:56 Calcium 10.0 mg/dL (8.5-1 0.5) 12/06/24 21:56 Total Bilirubin 0.9 mg/dL (0.15-1 .2) 12/06/24 21:56 AST 17 U/L (0-40) 12/06/24 21:56 ALT 16 U/L (0-41) 12/06/24 21:56 Alkaline Phosphata se 69 U/L (40-130) 12/06/24 21:56 Total Protein 8.3 g/dL (6.6-8.7 ) 12/06/24 21:56 Albumin 4.9 g/dL (3.5-5.2 ) 12/06/24 21:56 Globulin 3.4 g/dL (1.3-4.6 ) 12/06/24 21:56 Salicylates < 0.3 mg/dL (3-10 ) L 12/06/24 21:56 Urine Opiates Scre en Positive ng/mL (N egative) H 12/06/24 21:59 Acetaminophen < 5.0 ug/mL (10-3 0) L 12/06/24 21:56 Ur Barbiturates Sc reen Negative ng/mL (N egative) 12/06/24 21:59 Ur Phencyclidine S crn Negative ng/mL (N egative) 12/06/24 21:59 Ur Amphetamines Sc reen Negative ng/mL (N egative) 12/06/24 21:59 U Benzodiazepines Scrn Negative ng/mL (N egative) 12/06/24 21:59 Urine Cocaine Scre en Negative ng/mL (N egative) 12/06/24 21:59 U Marijuana (THC) Screen Positive ng/mL (N egative) H 12/06/24 21:59 Ethyl Alcohol < 10 mg/dL (0-10) 12/06/24 21:56 Vitals: Last Vital Signs Temp 97.9 F 12/08/24 06:00 Pulse 62 12/08/24 06:00 Resp 16 12/08/24 06:00 BP 103/68 12/08/24 06:00 Pulse Ox 98 12/08/24 06:00 O2 Del Method Room Air 12/08/24 06:00 Discharge Plan Discharge Patient Disposition: Home Condition: Stable Prescriptions: New paliperidone [Invega] 6 mg tablet extended release 24hr 6 mg PO 2100 30 Days Qty: 30 1RF Continued hydroxyzine HCl 50 mg tablet 50 mg PO QID PRN (Reason: anxiety/insomnia) 30 Days Qty: 120 2RF divalproex [Depakote ER] 500 mg tablet extended release 24 hr 500 mg PO BID 30 Days Qty: 60 2RF Discontinued trazodone 100 mg tablet 100 mg PO BEDTIME PRN (Reason: Insomnia) 30 Days Qty: 30 1RF buspirone 10 mg tablet 10 mg PO BID 30 Days Qty: 60 2RF Discharge Order = DC NOW: Discharge Order (Routine); Ordered 12/08/24 Ordered By: Connor Montero Referrals: Pepito Mann MD [Primary Care Provider, Family Practice] - 12/12/24 10:40 am Referral Note: Follow up Chidi Jackson MD [Physician, Psychiatry] - 12/11/24 1:15 pm Referral Note: Follow up Discharge Diet: Usual diet Discharge Activity: Resume usual activity Patient Instructions: Paliperidone (By mouth), Brief Psychotic Disorder (DC), Opioid Safety, Patient Portal & Ronda Instructions Discharge Attestations NPU Time Spent in Discharge Care*: less than 30 min Specific Discharge Activities: Specific discharge activities: educating patient, discussing with assistant case manager/social workers/dc planners and documenting/other paperwork Coding Level of Care Code Acute Code for Chg Fwd Diagnoses Acute psychosis F23 Borderline personality disorder F60.3 Suicidal ideation R45.851 Intermittent explosive disorder F63.81
[2024-12-08 16:33] VITALS: BP 103/68; PULSE 62; RESP 16; TEMP 36.6; O2SAT 98
[2024-12-08 17:55] VITALS: BP 133/99; PULSE 100; RESP 20; TEMP 530.3; TEMP 986.6; O2SAT 97
== END 2024-12-08 17:55 | disposition home or self-care (01) | DRG 885 ==
LOC: ER 23:17 → NP 12-07 00:32
PROVIDERS: Admitting Provider Psychiatry & Neurology Psychiatry; Emergency Provider Physician Assistant; PCP Family Medicine; Visit Provider Psychiatry & Neurology Psychiatry
DX: F25.9 Schizoaffective disorder, unspecified (principal); F33.9 Major depressive disorder, recurrent, unspecified; R45.851 Suicidal ideations; F60.2 Antisocial personality disorder; F41.9 Anxiety disorder, unspecified; F12.90 Cannabis use, unspecified, uncomplicated; Z91.148 Patient's other noncompliance with medication regimen for other reason; F17.210 Nicotine dependence, cigarettes, uncomplicated; Z79.899 Other long term (current) drug therapy
CPT/HCPCS: 80053; 80306; 80307; 85025; 96372; 97165; 99285; J1200; J1630; J2060; J9999; Q0163

== ENCOUNTER 2024-12-11 01:49 | Emergency (ER) | payer MEDICAID, SELFPAY ==
[2024-09-11 14:07] VITALS: BP 130/84; BMI 30.8
[2024-12-11 01:51] VITALS: BP 142/91; PULSE 81; RESP 17; TEMP 36.6; O2SAT 96; BMI 25.9
--- OUTSIDE RECORDS SUMMARY | 2024-12-11 01:58 | XMS_ITS | Clinical Summary ---
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
[2024-12-11 02:19] VITALS: PULSE 71; O2SAT 99
[2024-12-11 02:37] LABS: Hematocrit 37.4 % (37-53); Hemoglobin 12.50 g/dL (11.27-16.99); Mean Corpuscular HGB Conc 33.4 g/dL (30-55); Mean Corpuscular Hemoglobin 30.3 pg (27-33); Mean Corpuscular Volume 90.6 fl (82-101); Nucleated Red Blood Cells % 0 %; Platelet Count 245 10^3/cmm (157-399); Red Blood Count 4.13 10^6/uL (3.85-5.65); White Blood Count 10.45 10^3/uL (3.29-11.43)
[2024-12-11 02:41] LABS: Alanine Aminotransferase 19 U/L (0-41); Albumin Level 4.1 g/dL (3.5-5.2); Alkaline Phosphatase 65 U/L (40-130); Anion Gap 16.1 (5-19); Aspartate Amino Transferase 26 U/L (0-40); Blood Urea Nitrogen 12 mg/dL (6-20); Calcium 9.6 mg/dL (8.5-10.5); Carbon Dioxide 25 mmol/L (22-29); Chloride 103 mmol/L (98-107); Creatinine Clr Calc Pharmacy 102.6359; Globulin 2.7 g/dL (1.3-4.6); Glucose 174 mg/dL (65-115); Lipase 58 U/L (13-60); Osmolality Calculated 294 mOsm/kg (285-295); Potassium 4.1 mmol/L (3.5-5.1); Sodium 140 mmol/L (136-145); Total Protein 6.8 g/dL (6.6-8.7)
--- NOTE | 2024-12-11 02:43 | W.ED.ABDPA2 ---
HPI - Abdominal Pain General: Chief Complaint: Abdominal Pain Stated Complaint: Abd Pain Time Seen by Provider: 12/11/24 01:56 History of Present Illness: Patient is a 39-year-old male presenting with abdominal pain localized to the right abdomen. He reports the pain has been present intermittently since last Wednesday (approximately 8 days). The patient states he has been diagnosed with pancreatitis previously at this facility. He reports vomiting a couple of times but denies diarrhea. Patient has been medicating with hydrocodone but reports he has run out of medication. He has not been able to schedule an appointment with his primary care physician due to various constraints. Related Data Previous Rx's ?Medication ?Instructions ?Recorded hydroxyzine HCl 50 mg tablet 50 mg PO QID PRN anxiety/insomnia 12/05/24 30 days #120 tabs divalproex 500 mg tablet,extended 500 mg PO BID 30 days #60 tabs 12/08/24 release 24 hr (Depakote ER) paliperidone 6 mg tablet,extended 6 mg PO 2100 30 days #30 tabs 12/08/24 release 24 hr (Invega) lansoprazole 30 mg capsule,delayed 30 mg PO DAILY #30 caps 12/11/24 release (Prevacid) sucralfate 1 gram tablet 1 g PO TID 4 weeks #84 tabs 12/11/24 Allergies Allergy/AdvReac Type Severity Reaction Status Date / Time No Known Allergies Allergy Verified 10/02/24 14:46 [facility] ED PFSH: Medical History Hyperlipidemia Smoking Diabetes Metformin discontinued due to diarrhea. [facility]iatric care [facility]ased from [facility] Substance abuse Intellectual disability Anxiety Psychiatric care Family History Other Diabetes Social History Smoking and tobacco/nicotine status: current every day tobacco/nicotine user cigarettes Packs smoked per day: 1 Years cigarettes smoked: 18 and smokeless tobacco Smokeless tobacco user: chewing tobacco Smokeless tobacco details: a can last about a week Quit status (tobacco/nicotine): considering quitting Second hand smoke exposure: Yes Alcohol intake: never Substance/Drug Use: never Adopted: No Caregiver/support person: Yes Lives independently: Yes Household members: family and none Housing: Apartment Marital status: Legally Number of children: 0 Number of grandchildren: 0 Highest education level completed: 9th Grade Current occupational status: unemployed Pets and animals: No Leisure activites: sports, exercise, music, hunting, fishing and other Leisure activities details: helps step dad around the house and watch movies Sexually active: No Do you think of yourself as: Straight/Heterosexual Current gender identity: Male Tiffanie/Jainism: Anabaptism Special tiffanie needs: No Agree to transfusion: Yes Physical Exam Const: GENERAL APPEARANCE: cooperative, lethargic and odor of alcohol detected; not frail appearing ORIENTATION/CONSCIOUSNESS: Yes lethargic HENMT: COMMON NORMALS: normocephalic, atraumatic and Normal external nose present HEAD & SCALP: normocephalic and atraumatic FACE & SINUS: normal facial exam and face symmetric NOSE: Normal external nose present Eye: COMMON NORMALS: Equal, round and reactive pupils present and EOMs intact bilaterally PUPIL: Yes Equal, round and reactive pupils present Neck/C-Spine: GENERAL: Yes trachea midline Chest: CHEST: Yes Symmetrical chest wall rise Resp: COMMON NORMALS: normal respiratory effort, No retractions, No use of accessory muscles and clear to auscultation bilaterally AUSCULTATION: clear to auscultation bilaterally Cardio: COMMON NORMALS: regular rate and regular rhythm RATE: regular rate RHYTHM: regular rhythm GI: COMMON NORMALS: Normal to inspection, nondistended, normoactive bowel sounds present PALPATION: Yes Tenderness to palpation present (GI) (generalized) Extremity: COMMON NORMALS: no pedal edema Neuro: CIARRA COMA SCALE: document GCS findings [place] coma scale eye opening: Spontaneous [place] coma scale verbal response: Orientated [place] coma scale motor response: Obey commands [place] coma scale total score: 15 SENSORIUM/ORIENTATION: Yes lethargic SENSORY EXAM: Yes extremities (intact) Psych: COMMON NORMALS: speech normal SPEECH: Yes normal speech Skin: COMMON NORMALS: no rashes or lesions noted GENERAL SKIN EXAM: no rashes or lesions noted Course Vital Signs: Vital signs: Vital Signs Temperature 97.8 F 12/11/24 01:51 Pulse Rate 52 L 12/11/24 03:21 Respiratory Rate 17 12/11/24 01:51 Blood Pressure 111/66 12/11/24 03:21 Pulse Oximetry 95 12/11/24 03:21 Oxygen Delivery Me thod Room Air 12/11/24 03:21 MDM - Abdominal Pain Medical Decision Making Vital signs are stable. He does not appear to be in pain. CBC BMP are normal. Liver enzymes are normal. Lipase is normal. Likely alcoholic gastritis given his history. He is given a GI cocktail. Antiemetic. Home on PPI plus sucralfate. Close outpatient follow-up. Return for worsening symptoms. Lab Data 12/11/24 02:09 12/11/24 02:09 Labs/Radiology: Laboratory Results WBC 10.45 10^3/uL (3.29-11.43) 12/11/24 02:09 RBC 4.13 10^6/uL (3.85-5.65) 12/11/24 02:09 Hgb 12.50 g/dL (11.27-16.99) 12/11/24 02:09 Hct 37.4 % (37-53) 12/11/24 02:09 MCV 90.6 fl (82-101) 12/11/24 02:09 MCH 30.3 pg (27-33) 12/11/24 02:09 MCHC 33.4 g/dL (30-55) 12/11/24 02:09 RDW 12.9 % (12.1-15.1) 12/11/24 02:09 Plt Count 245 10^3/cmm (157-399) 12/11/24 02:09 MPV 10.7 fL (7.4-10.4) H 12/11/24 02:09 Neut % (Auto) 51.4 % 12/11/24 02:09 Lymph % (Auto) 36.9 % 12/11/24 02:09 [place] % (Auto) 9.3 % 12/11/24 02:09 Eos % (Auto) 1.8 % 12/11/24 02:09 Baso % (Auto) 0.4 % 12/11/24 02:09 Neut # (Auto) 5.37 10^3/uL (1.8-7.7) 12/11/24 02:09 Lymph # (Auto) 3.9 10^3/uL (0.8-4.8) 12/11/24 02:09 [place] # (Auto) 1.0 10^3/uL (0.2-0.9) H 12/11/24 02:09 Eos # (Auto) 0.2 10^3/uL (0.0-0.8) 12/11/24 02:09 Baso # (Auto) 0.0 10^3/uL (0.0-0.1) 12/11/24 02:09 Nucleated RBC % (auto) 0 % 12/11/24 02:09 Nucleated RBCs # 0.0 /100WBC 12/11/24 02:09 Sodium 140 mmol/L (136-145) 12/11/24 02:09 Potassium 4.1 mmol/L (3.5-5.1) 12/11/24 02:09 Chloride 103 mmol/L (98-107) 12/11/24 02:09 Carbon Dioxide 25 mmol/L (22-29) 12/11/24 02:09 Anion Gap 16.1 (5-19) 12/11/24 02:09 BUN 12 mg/dL (6-20) 12/11/24 02:09 Creatinine 0.9 mg/dL (0.7-1.2) 12/11/24 02:09 GFR Calculation 94.4 mL/min (90-130) 12/11/24 02:09 Glucose 174 mg/dL (65-115) H 12/11/24 02:09 Calculated Osmolality 294 mOsm/kg (285-295) 12/11/24 02:09 Calcium 9.6 mg/dL (8.5-10.5) 12/11/24 02:09 Total Bilirubin 0.3 mg/dL (0.15-1.2) 12/11/24 02:09 AST 26 U/L (0-40) 12/11/24 02:09 ALT 19 U/L (0-41) 12/11/24 02:09 Alkaline Phosphatase 65 U/L (40-130) 12/11/24 02:09 C-Reactive Protein 3.5 mg/L (0.0-4.9) 12/11/24 02:09 Total Protein 6.8 g/dL (6.6-8.7) 12/11/24 02:09 Albumin 4.1 g/dL (3.5-5.2) 12/11/24 02:09 Globulin 2.7 g/dL (1.3-4.6) 12/11/24 02:09 Lipase 58 U/L (13-60) 12/11/24 02:09 Urine Color Yellow (Yellow) 12/11/24 03:00 Urine Appearance Clear (CLEAR) 12/11/24 03:00 Urine pH 6.0 (5-7) 12/11/24 03:00 Ur Specific [place] 1.016 (1.005-1.030) 12/11/24 03:00 Urine Protein Negative (Negative) 12/11/24 03:00 Urine Glucose (UA) Negative (Normal) 12/11/24 03:00 Urine Ketones Trace (Negative) 12/11/24 03:00 Urine Blood Negative (Negative) 12/11/24 03:00 Urine Nitrate Negative (Negative) 12/11/24 03:00 Urine Bilirubin Negative (Negative) 12/11/24 03:00 Urine Urobilinogen 1.0 mg/dL (Negative) 12/11/24 03:00 Ur Leukocyte Esterase Negative (Negative) 12/11/24 03:00 Amorphous Sediment Not Reportable 12/11/24 03:00 Urine Opiates Screen Negative ng/mL (Negative) 12/11/24 03:00 Ur Barbiturates Screen Negative ng/mL (Negative) 12/11/24 03:00 Ur Phencyclidine Scrn Negative ng/mL (Negative) 12/11/24 03:00 Ur Amphetamines Screen Negative ng/mL (Negative) 12/11/24 03:00 U Benzodiazepines Scrn Positive ng/mL (Negative) H 12/11/24 03:00 Urine Cocaine Screen Negative ng/mL (Negative) 12/11/24 03:00 U Marijuana (THC) Screen Positive ng/mL (Negative) H 12/11/24 03:00 Ethyl Alcohol < 10 mg/dL (0-10) 12/11/24 02:09 No radiology studies performed this visit Discharge Plan Discharge Patient Disposition: Home Clinical Impression: Gastritis Condition: Stable Prescriptions: New sucralfate 1 gram tablet 1 g PO TID 28 Days Qty: 84 0RF lansoprazole [Prevacid] 30 mg capsule,delayed release(DR/EC) 30 mg PO DAILY Qty: 30 0RF No Action hydroxyzine HCl 50 mg tablet 50 mg PO QID PRN (Reason: anxiety/insomnia) 30 Days Qty: 120 2RF paliperidone [Invega] 6 mg tablet extended release 24hr 6 mg PO 2100 30 Days Qty: 30 1RF divalproex [Depakote ER] 500 mg tablet extended release 24 hr 500 mg PO BID 30 Days Qty: 60 2RF Discharge Orders: Discharge ED (Routine); Ordered 12/11/24 Ordered By: Kwaku Tee Referrals: Pepito Mann MD [Primary Care Provider, [facility]] - 1-3 days Patient Instructions: Gastritis (ED), Opioid Safety, Pain Management, Patient Portal & Ronda Instructions Activity Restrictions/Additional Instructions: Medication as directed. Call your doctor in the morning for a follow-up appointment. Return for fever, vomiting liquids, other concerning symptoms. Print Language: Nigerien Coding Level of Care Code ED Blasting Gang Miner for Natalie Kiran
[2024-12-11 03:10] LABS: Alcohol Level < 10 mg/dL (0-10)
[2024-12-11 03:21] VITALS: BP 111/66; PULSE 52; O2SAT 95
[2024-12-11 03:34] LABS: Glucose Urine UA Negative (Normal); Nitrate Urine Negative (Negative); Specific Gravity, Urine 1.016 (1.005-1.030)
[2024-12-11 03:40] LABS: PCP Screen Urine Negative (Negative)
[2024-12-11] MEDS: lidocaine 2% viscous 15 ML, aluminum-mag hydrox-simethicon 30 ML, sucralfate oral liq 1 GM PO (04:13)
[2024-12-11] MEDS: oxyCODONE-APAP 5-325 mg Tablet 2 TAB PO (04:13)
[2024-12-11 04:16] LABS: UA Manual Slide Review YES
[2024-12-11 04:17] LABS: Add Urine Microscopic? YES
== END 2024-12-11 04:15 | disposition home or self-care (01) ==
PROVIDERS: Emergency Provider Emergency Medicine; PCP Family Medicine
DX: K29.70 Gastritis, unspecified, without bleeding (principal); F17.210 Nicotine dependence, cigarettes, uncomplicated; E78.5 Hyperlipidemia, unspecified; E11.9 Type 2 diabetes mellitus without complications
CPT/HCPCS: 36415; 80053; 80306; 80307; 81001; 83690; 85025; 86140; 99283; J9999; Q0162

== ENCOUNTER 2024-12-13 16:34 | Emergency (ER) | payer MEDICAID, SELFPAY ==
[2024-09-11 14:07] VITALS: BP 130/84; BMI 30.8
[2024-12-13 16:39] VITALS: PULSE 110; TEMP 36.8; O2SAT 97
--- OUTSIDE RECORDS SUMMARY | 2024-12-13 16:39 | XMS_ITS | Clinical Summary ---
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
--- NOTE | 2024-12-13 17:29 | ED_ITS ---
HPI - Extremity Problem General: Chief complaint: Extremity Problem,Nontraumatic Stated complaint: L foot big toe bite blurry vizion Time Seen by Provider: 12/13/24 17:08 Source: patient Mode of arrival: ambulatory Limitations: no limitations History of Present Illness: Patient is a 39-year-old male presents the emergency department complaining of wound to left foot that he knows last night. [place] he got bit by a snake, though denies seeing a snake or any inciting event where he was bit. Has been taking Tylenol which has been helping, also states he has been wearing new boots and thinks this may be rubbing against the area. No fever, chills, nausea/vomiting, or any other major concerns or signs of systemic illness at this time. MD Complaint: other (Wound of left foot) Onset (ago): hour(s) Associated symptoms: Deny chest pain, fever(s) or rash Related Data Previous Rx's ?Medication ?Instructions ?Recorded hydroxyzine HCl 50 mg tablet 50 mg PO QID PRN anxiety/ insomnia 12/05/24 30 days #120 tabs divalproex 500 mg tablet,extended 500 mg PO BID 30 day s #60 tabs 12/11/24 release 24 hr (Depakote ER) lansoprazole 30 mg capsule,delayed 30 mg PO DAILY #30 caps 12/11/24 release (Prevacid) paliperidone 6 mg tablet,extended 6 mg PO 2100 30 days #30 tabs 12/11/24 release 24 hr (Invega) sucralfate 1 gram tablet 1 g PO TID 4 weeks #84 tabs 12/11/24 acetaminophen 500 mg capsule 1,000 mg (2 x 500 mg) PO Q6H #60 12/13/24 caps triamcinolone acetonide 0.5 % 1 applic topical BID #15 grams 12/13/24 topical ointment Allergies Allergy/AdvReac Type Severity Reaction Status Date / Time bupropion (From Wellbutrin) Allergy Unknown Verified 12/13/24 16:44 Wellbutin AdvReac Severe Makes Uncoded 12/11/24 13:54 hallucinate/paranoia/can't sleep. Review of Systems General: Reports: 10 or more systems reviewed and unremarkable except in HPI and below Const: Denies: fever(s) or chills Card: Denies: chest pain Resp: Denies: dyspnea GI: Denies: abdominal pain, nausea, vomiting or diarrhea Musc: Denies: extremity pain or joint pain Skin/Breast: Reports: new lesions (Wound to left foot); Denies: rash, skin pain or skin tenderness Neuro: Denies: headache(s) PFS ED PFSH: Medical History Hyperlipidemia Smoking Diabetes Metformin discontinued due to diarrhea. Psychiatric care Released from halfway Substance abuse Intellectual disability Anxiety Psychiatric care Family History Other Diabetes Social History Smoking and tobacco/nicotine status: current every day tobacco/nicotine user cigarettes Packs smoked per day: 1 Years cigarettes smoked: 19 and smokeless tobacco Smokeless tobacco user: chewing tobacco Smokeless tobacco details: a can last about a week Quit status (tobacco/nicotine): considering quitting Second hand smoke exposure: Yes Alcohol intake: never Substance/Drug Use: never Adopted: No Caregiver/support person: Yes Lives independently: Yes Household members: family and none Housing: Apartment Marital status: Legally Number of children: 0 Number of grandchildren: 0 Highest education level completed: 9th Grade Current occupational status: unemployed Pets and animals: No Leisure activites: sports, exercise, music, hunting, fishing and other Leisure activities details: helps step dad around the house and watch movies Sexually active: No Do you think of yourself as: Straight/Heterosexual Current gender identity: Male Tiffanie/Catholic: Buddhist Special tiffanie needs: No Agree to transfusion: Yes Physical Exam Const: COMMON NORMALS: no acute distress, average body habitus, patient oriented x3, no limitations, healthy appearing, alert and well nourished HENMT: COMMON NORMALS: normocephalic and atraumatic HEAD & SCALP: normocephalic and atraumatic Neck/C-Spine: COMMON NORMALS: full ROM, no lymphadenopathy, supple and no meningeal signs Resp: COMMON NORMALS: normal respiratory effort, No use of accessory muscles and clear to auscultation bilaterally AUSCULTATION: clear to auscultation bilaterally Cardio: COMMON NORMALS: regular rate and regular rhythm RATE: regular rate RHYTHM: regular rhythm Extremity: COMMON NORMALS: full ROM and capillary refill normal Neuro: COMMON NORMALS: patient oriented x3 SENSORIUM/ORIENTATION: Yes alert MENINGEAL SIGNS: Yes no meningeal signs Skin: NARRATIVE SKIN EXAM: Erythematous circumferential area to dorsum of left foot, just proximal to the great toe. No signs of fang blackmon or other puncture wound to indicate any bite. Area is tender to palpation and slightly macerated appearing. Course Vital Signs: Vital signs: Vital Signs Temperature 98.3 F 12/13/24 16:39 Pulse Rate 110 H 12/13/24 16:39 Pulse Oximetry 97 12/13/24 16:39 Oxygen Delivery Me thod Room Air 12/13/24 16:39 MDM - Extremity (Nontraumatic) Medical Decision Making Do not suspect that this is a bite of any kind, appears as a benign rash and symptomatic treatment encouraged, will prescribe topical triamcinolone. Encouraged him to keep the area clean and dry. No further intervention required in the ED, no systemic illness evident. No radiology studies performed this visit Discharge Plan Discharge Patient Disposition: Home Clinical Impression: Dermatitis Condition: Stable Prescriptions: New triamcinolone acetonide 0.5 % ointment 1 applic topical BID Qty: 15 0RF acetaminophen 500 mg capsule 1,000 mg PO Q6H Qty: 60 0RF No Action paliperidone [Invega] 6 mg tablet extended release 24hr 6 mg PO 2100 30 Days Qty: 30 1RF divalproex [Depakote ER] 500 mg tablet extended release 24 hr 500 mg PO BID 30 Days Qty: 60 1RF sucralfate 1 gram tablet 1 g PO TID 28 Days Qty: 84 0RF lansoprazole [Prevacid] 30 mg capsule,delayed release(DR/EC) 30 mg PO DAILY Qty: 30 0RF hydroxyzine HCl 50 mg tablet 50 mg PO QID PRN (Reason: anxiety/insomnia) 30 Days Qty: 120 2RF Discharge Orders: Discharge ED (Routine); Ordered 12/13/24 Ordered By: Nhan Abdi Referrals: Pepito Mann MD [Primary Care Provider, Family Practice] Patient Instructions: Patient Portal & Ronda Instructions Activity Restrictions/Additional Instructions: Please apply the topical steroid as prescribed. Clean the area with mild soap and water and keep dry otherwise. Follow-up with your primary care provider. Motrin and Tylenol for any pain. Print Language: Stateless Coding Level of Care Code ED Statistical Methods Teacher for Natalie Kiran
== END 2024-12-13 17:33 | disposition home or self-care (01) ==
PROVIDERS: Emergency Provider Physician Assistant; PCP Family Medicine
DX: L30.9 Dermatitis, unspecified (principal); F17.220 Nicotine dependence, chewing tobacco, uncomplicated
CPT/HCPCS: 99283; J9999

== ENCOUNTER 2025-03-01 15:55 | Emergency (ER) | payer MEDICAID, SELFPAY ==
[2024-09-11 14:07] VITALS: BP 130/84; BMI 30.8
[2025-03-01 15:57] VITALS: BP 132/81; PULSE 54; RESP 16; TEMP 36.4; O2SAT 100
--- OUTSIDE RECORDS SUMMARY | 2025-03-01 16:03 | XMS_ITS | Continuity of Care Document ---
Author Organization ALEJANDRA Wiley [facility] Marium Russo, [facility] ([facility]) Address [address] [place] [address] Assessment No assessment recorded. Plan of Treatment Reminders Order Date Submit Date Provider Last Modified By Organization Details Last Modified Time Details Appointments None recorded. Lab hepatitis panel (A+B+C), acute, serum 2024 025 [facility], [address] [place] [address], [address], [place], [address], 18:31:58 Hepatitis C IgG Ab, qual, serum 2024 025 [email or web address] 1 [facility], [address] [place] [address], [address], [place], [address], 17:48:59 CT + NG RNA, PCR, unspecified specimen 2024 025 [facility], [address] [place] [address], [address], [place], [address], 18:31:59 CMP, serum or plasma 2024 025 [email or web address], [address], [address], [place], [address], 11:49:23 lipid panel, blood 2024 025 [facility], [address], [facility] 1, [place], [address], 11:49:25 CBC 2024 025 [facility], [address] [facility] [address] [facility], [facility] 1, [place], [address], 11:29:16 lipase, serum or plasma 2024 025 [facility], [address] [place] [address] 248, [address], [place], [address], 18:31:59 amylase, serum or plasma 2024 025 [facility], [address] [place] [address] 248, [address], [place], [address], 18:31:59 Referral None recorded. Procedures None recorded. Surgeries None recorded. Imaging XR, kidney + ureter + bladder 2024 025 [email or web address] [facility], [address] [place], [address], 11:01:00 US, abdomen, limited 2024 025 [email or web address] 2 [facility], [address] [place], [address], 13:16:11 Medication Orders Miralax 17 gram/dose oral powder 2024 025 [id number], [address], [place], [place], [id number], 11:27:08 clotrimazol e-betametha sone 1 %-0.05 % topical cream 2024 025 [id number], [address], [place], [place], [id number], 10:58:38 Patient TargetsNo targets recorded. Patient InstructionsNo instructions recorded. Reason for Referral None Reported. Results Created Date Observation Date Name Description Value Unit Range Abnormal Flag Note LastModifiedBy Organization Detail LastModifiedTime 12/13/1912/12/2024 CBC WBC 11.2 x10 4.5-10 .5 high Not Available [facility] [address] [facility] [address] [facility] 1, [place], [address], 12/12/2024 11:29:16 12/13/1912/12/2024 CBC RBC 4.59 x10 4.30-5 .90 Not Available [facility] [address] [facility] [address] [facility] 1, [place], [address], 12/12/2024 11:29:16 12/13/1912/12/2024 CBC HGB 14.2 g/dL 13.5-1 8.0 Not Available [facility] [address] [facility] [address] [facility] 1, [place], [address], 12/12/2024 11:29:16 12/13/1912/12/2024 CBC HCT 43.2 % 35.0-6 0.0 Not Available [facility] [address] [facility] 1, [place], [address], 12/12/2024 11:29:16 12/13/1912/12/2024 CBC MCV 94.2 fL 80.0-9 9.9 Not Available [facility] [address] [facility] 1, [place], [address], 12/12/2024 11:29:16 12/13/1912/12/2024 CBC MCH 30.9 pg 27.0-3 2.0 Not Available [facility] [address] [facility] 1, [place], [address], 12/12/2024 11:29:16 12/13/1912/12/2024 CBC MCHC 32.9 g/dL 32.0-3 6.0 Not Available [facility] [address] [facility] 1, [place], [address], 12/12/2024 11:29:16 12/13/19 25 12/12/2024 CBC RDW 13.1 % 11.5-1 4.5 Not Available [facility] [address] [facility] [address] [facility] 1, [place], [address], 12/12/2024 11:29:16 12/13/1912/12/2024 CBC plt 248.0 x10 150.0- 451.0 Not Available [facility] [address] [facility], [place], [address], 12/12/2024 11:29:16 12/13/1912/12/2024 CBC lymphocytes % 22.4 % 20.0-5 0.0 Not Available [facility] [address] [facility], [place], [address], 12/12/2024 11:29:16 12/13/1912/12/2024 CBC granulcytes % 68.7 % 30.0-7 0.0 Not Available [facility] [address] [facility], [place], [address], 12/12/2024 11:29:16 12/13/1912/12/2024 CBC monocytes % 7.1 % 2.0-16 .0 Not Available [facility] [address] [facility] 1, [place], [address], 12/12/2024 11:29:16 12/13/19 25 12/12/2024 CBC granulcytes# 7.7 x10 Not Samanta ilable [facility] [address] [facility] [address] [facility] 1, [place], [address], 12/12/2024 11:29:16 12/13/19 25 12/12/2024 CBC lymphocytes # 2.5 x10 Not Available [facility] [address] [facility] 1, [place], [address], 12/12/2024 11:29:16 12/13/19 25 12/12/2024 CBC monocytes # 0.8 x10 Not Avai lable [facility] [address] [facility] 1, [place], [address], 12/12/2024 11:29:16 12/13/19 25 12/12/2024 CMP (MALE ) glucose 123.0 mg/dL 60.0-9 9.0 high Not Available [facility] [address] [address], [place], [address], 12/12/2024 11:49:23 12/13/19 25 12/12/2024 CMP (MALE ) BUN (blood urea nitrogen) 5.0 mg/dL 10.0-2 6.0 low Not Available [facility] [address] [address], [place], [address], 12/12/2024 11:49:23 12/13/19 25 12/12/2024 CMP (MALE ) creatinine (serum) 0.8 mg/dL 0.4-1. 5 Not Available [facility] [address] [address], [place], [address], 12/12/2024 11:49:23 12/13/19 25 12/12/2024 CMP (MALE ) BUN/creatini ne ratio 6.25 ratio Not Available [facility] [address] [address], [place], [address], 12/12/2024 11:49:23 12/13/19 25 12/12/2024 CMP (MALE ) eGFR calculated 115.0 Not Available [facility] [address] [facility] [address] [facility] 1, [place], [address], 12/12/2024 11:49:23 12/13/19 25 12/12/2024 CMP (MALE ) total protein 8.0 g/dL 6.0-8. 5 Not Available [facility] [address] [facility] 1, [place], [address], 12/12/2024 11:49:23 12/13/19 25 12/12/2024 CMP (MALE ) total bilirubin 0.6 mg/dL 0.2-1. 3 Not Available [facility] [address] [facility] 1, [place], [address], 12/12/2024 11:49:23 12/13/19 25 12/12/2024 CMP (MALE ) albumin 4.8 g/dL 3.5-5. 5 Not Available [facility] [address] [facility] 1, [place], [address], 12/12/2024 11:49:23 12/13/1912/12/2024 CMP (MALE ) globulin 3.2 calc Not Available [facility] [address] [facility] 1, [place], [address], 12/12/2024 11:49:23 12/13/1912/12/2024 CMP (MALE ) AST (SGOT) 33.0 U/L 0.0-46 .0 Not Available [facility] [address] [facility], [place], [address], 12/12/2024 11:49:23 12/13/19 25 12/12/2024 CMP (MALE ) altv (SGPT) 27.0 U/L 13.0-6 9.0 normal Not Available [facility] [address] [facility], [place], [address], 12/12/2024 11:49:23 12/13/19 25 12/12/2024 CMP (MALE ) A/G ratio 1.5 ratio Not Available [facility] [address] [facility] 1, [place], [address], 12/12/2024 11:49:23 12/13/19 25 12/12/2024 CMP (MALE ) ALP phos 64.0 U/L 30.0-1 40.0 normal Not Available [facility] [address] [facility] 1, [place], [address], 12/12/2024 11:49:23 12/13/1912/12/2024 CMP (MALE ) calcium 9.7 mg/dL 8.4-10 .5 Not Available [facility] [address] [facility] 1, [place], [address], 12/12/2024 11:49:23 12/13/19 25 12/12/2024 CMP (MALE ) sodium 140.0 mmol/ L 136.0- 145.0 Not Available [facility] [address] [facility] 1, [place], [address], 12/12/2024 11:49:23 12/13/19 25 12/12/2024 CMP (MALE ) potassium 3.8 mmol/ L 3.5-5. 1 Not Available [facility] [address] [facility] 1, [place], [address], 12/12/2024 11:49:23 12/13/19 25 12/12/2024 CMP (MALE ) chloride 103.0 mmol/ L 98.0-1 10.0 normal Not Available [facility] [address] [facility] 1, [place], [address], 12/12/2024 11:49:23 12/13/19 25 12/12/2024 CMP (MALE ) C02 30.0 mmol/ L 22.0-3 1.0 Not Available [facility] [address] [facility], [place], [address], 12/12/2024 11:49:23 12/13/1912/12/2024 CMP (MALE ) anion gap 7.0 calc Not Available [facility] [address] [facility] 1, [place], [address], 12/12/2024 11:49:23 12/13/1912/12/2024 CMP (MALE ) osmolality 287.8 calc Not Available [facility] [address] [facility] 1, [place], [address], 12/12/2024 11:49:23 12/13/1912/12/2024 LIPID PROFI LE (MALE ) cholesterol 168.0 mg/dL 0.0-20 0.0 Not Available [facility] [address] [facility] 1, [place], [address], 12/12/2024 11:49:25 12/13/1912/12/2024 LIPID PROFI LE (MALE ) trig 48.0 mg/dL 0.0-15 0.0 Not Available [facility] [address] [facility] 1, [place], [address], 12/12/2024 11:49:25 12/13/1912/12/2024 LIPID PROFI LE (MALE ) HDL - direct 40.0 mg/dL >40.0 Not Available [facility] [address] [facility] 1, [place], [address], 12/12/2024 11:49:25 12/13/1912/12/2024 LIPID PROFI LE (MALE ) VLDL - direct 9.6 mg/dL Not Available [facility] [address] [facility] 1, [place], [address], 12/12/2024 11:49:25 12/13/19 25 12/12/2024 LIPID PROFI SERGIO (MALE ) LDL - direct 118.4 mg/dL 0.0-13 0.0 Not Available [facility] [address] [facility] 1, [place], [address], 12/12/2024 11:49:25 12/13/19 25 12/13/2024 HEPAT ITIS PANEL , ACUTE W/REF MITALI TO CONFI RMATI ON hepatitis A IgM NON-RE ACTIVE non-re active normal For addit ional infor issa multani e refer to http: //edu jeremiah whatleyque stdia gnost ics.c om/fa q/FAQ 202 (This link is being provi ded for infor matio nal/ educa keysha l purpo ses only. ) Not Available [facility] [address], [address], 12/13/2024 18:31:58 12/13/19 25 12/13/2024 HEPAT ITIS PANEL , ACUTE W/REF MITALI TO CONFI RMATI ON hepatitis B surface antigen NON-RE ACTIVE non-re active normal For addit ional infor issa multani e refer to http: //[employer] jeremiah whatleyque stdia gnost ics.c om/fa q/FAQ 202 (This link is being provi ded for infor matio nal/ educa keysha l purpo ses only. ) Not Available [facility] [address], [address], 12/13/2024 18:31:58 12/13/19 25 12/13/2024 HEPAT ITIS PANEL , ACUTE W/REF MITALI TO CONFI RMATI ON hepatitis B core antibody (IgM) NON-RE ACTIVE non-re active normal For addit ional eliser issa multani e refer to http: //edu jeremiah whatleyque stdia gnost ics.c om/fa q/FAQ 202 (This link is being provi ded for infor matio nal/ educa keysha l purpo ses only. ) Not Available [facility] [address] [address] [place], [address], 12/13/2024 18:31:58 12/13/1912/13/2024 HEPAT ITIS PANEL , ACUTE W/REF MITALI TO CONFI RMATI ON hepatitis C antibody REACTI VE non-re active abnormal Based on this resul t, the sampl e will be teste d for HCV RNA by a Nucle ic Acid Ampli ficat ion Test (NAAT ) to deter mine if the patie nt has a curre nt activ e infec tion. Not Available [facility] [address] [address] [place], [address], 12/13/2024 18:31:58 12/13/1912/13/2024 HCV RNA, QUANT ITATI VE REAL TIME PCR HCV RNA, quantitative real time PCR [id number] 00 IU/mL not detect ed high Not Available [facility] [address] [address] [place], [address], 12/13/2024 18:31:58 12/13/1912/13/2024 HCV RNA, QUANT ITATI VE REAL TIME PCR HCV RNA, quantitative real time PCR 7.06 log_I U/mL not detect ed high HCV RNA was detec jessenia. This resul t provi varghese labor atory evide nce of a curre nt activ e HCV infec tion. Not Available [facility] [address] [address] [place], [address], 12/13/2024 18:31:58 12/13/1912/13/2024 HCV RNA, QUANT ITATI VE REAL TIME PCR comment For more infor rhonda medina on this test, go to: http: //phil correia stdia gnost ics.c om/fa q/FAQ 22v1 (This link is being provi ded for infor rhonda mathis/ educkeiry keysha l purpo ses only. ) This assay is inten ded for use as an aid in the diagn osis of HCV infec tion and the manag ement of HCV infec jessenia patie nts under going anti- viral thera py. Not Available [facility] [address] [address] [place], [address], 12/13/2024 18:31:58 12/13/19 25 12/13/2024 AMYLA SE amylase 31 U/L 21-101 normal Not Available [facility] [address], [address], 12/13/2024 18:31:59 12/13/19 25 12/13/2024 LIPAS E lipase 37 U/L 7-60 normal Not Available [facility] [address], [address], 12/13/2024 18:31:59 12/13/19 25 12/13/2024 CHLAM YDIA/ N. GONOR RHOEA E RNA, TMA, UROGE NITAL chlamydia trachomatis RNA, tma, urogenital NOT DETECT ED not detect ed normal Not Available [facility] [address] [address] [place], [address], 12/13/2024 18:31:59 12/13/19 25 12/13/2024 CHLAM YDIA/ N. GONOR RHOEA E RNA, TMA, UROGE NITAL neisseria gonorrhoeae RNA, tma, urogenital NOT DETECT ED not detect ed normal Not Available [facility] [address], [address], 12/13/2024 18:31:59 12/13/19 25 12/13/2024 CHLAM YDIA/ N. GONOR RHOEA E RNA, TMA, UROGE NITAL comment The ron tical perfo rmanc e sonya cteri stics of this assay , when used to test SureP ath(T M) speci mens have been deter mined by [facility]. The modif icati ons have not been clear ed or appro cele by the FDA. This assay has been valid ated pursu ant to the CLIA regul ation s and is used for clini cathy purpo ses. For addit ional infor issa multani refer to https ://ed ucati on.qu charleneJohns Hopkins Medicine. com/f aq/FA Q154 (This link is being provi ded for infonarcios medina/ macy barry purpo ses only. ) Not Available [facility] [address], [place], [address], 12/13/2024 18:31:59 12/14/1912/12/2024 XR, kidne y + urete r + bladd er No observ ation record ed. [facility] [address] [place], [address], 12/13/2024 14:42:44 Result Notes None recorded. Problems Name Problem SNOMED Code Status Onset Date Resolution Date Notes Provider Name and Address Organization Details Recorded Time Type 2 diabetes mellitus 53383296 Active 2024 CANDE loaiza [facility] 5 17:03:05 Bipolar disorder 09625385 Active 2024 CANDE MORALES [facility] 5 17:24:47 Chronic low back pain 720539645 [facility] 17:25:03 Gastroesophage al reflux disease 755378793 Active 2024 CANDE MORALES [facility] 5 17:25:13 Problem Notes None recorded. Medical Equipment None Reported. Medications Name Sig Start Date Stop Date Status Note LastModified by Organization Details LastModified Time Prescriptio n - Prior Authorizati on Request active Not Available Not Available N ot Available fluoxetine 40 mg capsule TAKE ONE CAPSULE BY MOUTH EVERY MORNING; take with a 20mg capsule FOR daily total of 60mg 08/16 completed Not Available Not Available Not Available cyclobenzap rine 10 mg tablet Take 1 tablet 3 times a day by oral route as needed for 15 days. 08/16 completed Not Available Not Available Not Available atorvastati n 20 mg tablet Take 1 tablet every day by oral route for 30 days. 08/16 completed Not Available Not Available Not Available haloperidol 5 mg tablet TAKE ONE TABLET BY MOUTH EVERY MORNING AND 1 tablet in THE evening 04/27 completed Not Available Not Available Not Available tizanidine 2 mg tablet TAKE ONE TABLET BY MOUTH THREE TIMES DAILY as needed for muscle spasticit y 08/16 completed Not Available Not Available Not Available divalproex 250 mg tablet,inge yed release TAKE 1 TABLET BY MOUTH TWICE DAILY 08/16 completed Not Available Not Available Not Available trazodone 50 mg tablet TAKE ONE TABLET BY MOUTH at bedtime as needed for SLEEP for 30 days 08/16 completed Not Available Not Available Not Available triamcinolo ne acetonide 0.5 % topical cream APPLY TOPICALLY TWICE DAILY active Not Available Not Available No t Available hydrocodone 5 mg-acetamin ophen 325 mg tablet Take 1 tablet every 6 hours by oral route as directed. active Not Available Not Available No t Available glipizide ER 10 mg tablet, extended release 24 hr Take 1 tablet every day by oral route for 30 days. 04/28 completed Not Available Not Available Not Available hydroxyzine HCl 50 mg tablet TAKE 1 TABLET BY MOUTH FOUR TIMES DAILY NEEDED FOR ANXIETY AND INSOMNIA active Not Available Not Available No t Available omeprazole 40 mg capsule,del ayed release Take 1 capsule every day by oral route for 30 days. 08/16 completed Not Available Not Available Not Available trazodone 100 mg tablet TAKE 1 TABLET BY MOUTH EVERY NIGHT AT BEDTIME NEEDED FOR INSOMNIA FOR 30 DAYS active Not Available Not Available No t Available mirtazapine 30 mg tablet TAKE 1 TABLET BY MOUTH ONCE DAILY AT BEDTIME 08/16 completed Not Available Not Available Not Available buspirone 30 mg tablet TAKE ONE TABLET BY MOUTH TWICE DAILY FOR ANXIETY 04/27 completed Not Available Not Available Not Available buspirone 10 mg tablet TAKE 1 TABLET BY MOUTH TWICE DAILY FOR 30 DAYS active Not Available Not Available No t Available clotrimazol e-betametha sone 1 %-0.05 % topical cream APPLY TOPICALLY TO THE AFFECTED AND SURROUNDI NG AREAS TWICE DAILY IN THE MORNING AND IN THE EVENING FOR 2 WEEKS active Not Available Not Available No t Available lisinopril 10 mg tablet Take 1 tablet every day by oral route for 30 days. 08/16 completed Not Available Not Available Not Available divalproex ER 500 mg tablet,exte nded release 24 hr TAKE 1 TABLET BY MOUTH TWICE DAILY active Not Available Not Available No t Available mirtazapine 15 mg tablet TAKE 1 TABLET BY MOUTH DAILY AT BEDTIME 04/27 completed Not Available Not Available Not Available polyethylen e glycol 3350 17 gram/dose oral powder TAKE 17 GIVE ONE CAPFUL BY MOUTH EVERY DAY FOR 30 DAYS DISSOLVE IN FLUID OF YOUR CHOICE active Not Available Not Available No t Available ondansetron 4 mg disintegrat ing tablet DISSOLVE 1 TABLET IN MOUTH EVERY 6 HOURS NEEDED FOR NAUSEA AND VOMITING active Not Available Not Available No t Available fluoxetine 20 mg capsule TAKE ONE CAPSULE EVERY MORNING; take with 40mg capsule FOR daily total of 60mg 08/16 completed Not Available Not Available Not Available risperidone 1 mg tablet Take 1.5 tablets twice a day by oral route for 30 days. 08/16 completed Not Available Not Available Not Available buspirone 15 mg tablet 08/16 completed Not Available Not Available Not Available bupropion HCl XL 300 mg 24 hr tablet, extended release TAKE ONE TABLET BY MOUTH DAILY for 30 days 12/12 completed Not Available Not Available Not Available bupropion HCl XL 150 mg 24 hr tablet, extended release TAKE 1 TABLET BY MOUTH EVERY MORNING active Not Available Not Available No t Available paliperidon e ER 6 mg tablet,exte nded release 24 hr TAKE 1 TABLET BY MOUTH AT 9PM DAILY FOR 30 DAYS 2024 active Not Available Not Available Not Avai lable Victoza 3-Robin 0.6 mg/0.1 mL (18 mg/3 mL) subcutaneou s pen injector Inject 0.6 mg every day by subcutane ous route for 30 days. 05/10 completed Not Available Not Available Not Available Ozempic 0.25 mg or 0.5 mg (2 mg/1.5 mL) subcutaneou s pen injector Inject 0.5 mg every week by subcutane ous route. 08/16 completed Not Available Not Available Not Available Ozempic 0.25 mg or 0.5 mg (2 mg/3 mL) subcutaneou s pen injector Inject by subcutane ous route for 56 days. 08/16 completed Not Available Not Available Not Available Vitals Date Recorded Body height Body mass index (BMI) Body weight Oxygen saturation Heart rate Respiratory rate Body temperature Systolic And Diastolic Provider Name and Address Organization Details Last Updated DateTime 5 165.1 cm 27.5 kg/m2 82290.7 4 g 97 % 76 /min 18 /min 97.9 [degF] 140/80 mm[Hg] CANDE MORALES [facility] 5 10:08:57 Social History None recorded. Functional Status None recorded. Mental Status None recorded. Family History Nothing Reported. Medical History No medical history recorded. Immunizations Vaccine Type Date Status Note Provider Nam e and Address Organization Details Recorded Time COVID-19, mRNA, LNP-S, PF, 100 mcg/0.5mL dose or 50 mcg/0.25mL dose 04/02/2020 completed Not Available [facility] 5 08:34:50 COVID-19, mRNA, LNP-S, PF, 100 mcg/0.5mL dose or 50 mcg/0.25mL dose 04/30/2020 completed Not Available [facility] 5 08:34:50 Influenza, split virus, quadrivalent, PF 12/25/2020 completed Not Available [facility] 5 08:34:50 Td (adult) 08/16/2021 completed Not Available [facility] 12/12/2024 08:34:50 Influenza, split virus, quadrivalent, PF 01/08/2022 completed Not Available [facility] 5 08:34:50 Influenza, split virus, quadrivalent, PF 06/07/2024 completed Not Available [facility] 5 08:34:50 Past Encounters Encounter ID Performer Location Encounter Start Date Encounter Closed Date Diagnosis/Indication Diagnosis SNOMED-CT Code Diagnosis ICD10 Code Diagnosis IMO Codes Diagnosis Note [id number] OFELIA CONN PA-C [facility] [address] [place] [address] 12/12/2024 08:28:39 12/15/2024 17:51:31 Acute pancreatitis 832536493 K85.80 52304023 positive lipase on 12.02 but normal yesterday. 12/11 with normal lfts.told him that I would not give him pain meds Gastroesop hageal reflux disease 580156626 K21.9 78371309 Acute constipation 41015 9006 K59.00 426773 History of hepatitis C 3359526871 9101 Z86.19 288567 Sexual beh avior with high risk of exposure to communicable disease 5214025704 Z72.51 Z20.9 6561380038 Irritant c ontact dermatitis caused by detergent 7821191866 6103640 L24.0 1712291 Health Concerns Section Related Observation LastModified by Organization Detai ls LastModified Time None Recorded Concern Status LastModified by Organization Details LastModified Time None Recorded Payers Encounter Date Sequence Insurance Name Policy Number Policy Cevallos Covered Member ID Cevallos Member ID Guarantor Name 12/12/2024 1 [facility] - EXCH[place] PLAN - [place] [id number] [place] 12/12/2024 2 [facility] [place] - [place] Hua [place] [id number] Hua [place] Notes Date Note Type Note Provider Name and Address Organization Details Recorded Time 5 text/html Abdominal PainReported by PatientAbdominal PainFor quality, patient reportscramping,dull, andburning. For associated symptoms, patient reportsnausea,vomiting,cons tipation,fatigue, andexertional dyspneabut reportsno fever,no chills,no blood in the urine,no heartburn,no blood in stool, andnormal appetite. For location, patient reportsgeneralizedandluq. For severity, patient reportsmoderateandpain level 10/22. For duration, patient reportsintermittent. For onset/timing, patient reportssudden. For aggravating factors, patient reportseating and drinking. For alleviating factors, patient reportseatingandmoving bowels. For other, patient reportsdenies possible . er follow up pancreatitis, wants pain pills and antibiotics says er told him to see [facility] for this, he also wants to be treated for hep c says he was dx at [facility] 3 years ago. Pt has had multiple recent ER visits mostly for psych reasons. with neuropsych admissions.2 ER trips for abd pain. one last week did have an elevated lipase but last nights ER trip the lipase and rest of labs were normal. today when I ask where his belly pain is, he points to the LLQ. some loose stool but prior was constipatedHe brings his meds in but is missing the palperdone that was started and still taking the SSRI and the buspar that psych wanted him to stop. OFELIA CONN PA-C [address] [place] [address], [id number], [facility]. 12/15/2024 16:36:59
--- OUTSIDE RECORDS SUMMARY | 2025-03-01 16:03 | XMS_ITS | Clinical Summary ---
Author Organization [facility] Address [address] [place] [address] Phone Care Team Providers Care Vector Control Specialist Name Role Phone Unavailable Primary Care Provider [...] tis 09/06/2015 History of alcohol abuse 09/06/2015 Family History Medical History Relation Name Comments [...] on file Legal Sex Male 5:35 AM [employer] Gender Identity Not on file Sexual [...] Health Maintenance Due Date Last Done Comments DTAP/TDAP/TD VACCINES (1 - Tdap) 2005 HEPATITIS B VACCINES (1 of 3 - 19+ 3-dose series) 09/13 INFLUENZA VACCINE (#1) 2024 HPV VACCINES (No Doses Required) Completed Medical Devices Implanted Type Area Svp Digital Sales Device Identifier Shelf Expiration Date Model / Serial / Lot Log [id number] - [facility] Arch - 1 - [facility] Implanted:Qty: 2 on 12/22/2008 Wire [id number]ICE [facility] / / Insurance [facility] INDIVIDUAL EXCHANGE [id number] [place] [address]
--- OUTSIDE RECORDS SUMMARY | 2025-03-01 16:03 | XMS_ITS | Data Portability ---
Author Organization [facility] Marium Russo [facility] Address [address] [address] Assessment No assessment recorded. Plan of Treatment Reminders Order Date Submit Date Provider Last Modified By Organization Details Last Modified Time Details Appointments None recorded. Lab hepatitis panel (A+B+C), acute, serum 2024 025 [employer] [facility], [address] [place] [address], [address], [place], [address], 18:31:58 Hepatitis C IgG Ab, qual, serum 2024 025 [facility] 1 [address] [facility] [facility], [address] [place] [address], [address], [place], [address], 17:48:59 CT + NG RNA, PCR, unspecified specimen 2024 025 [employer] [facility], [address] [place] [address], [address], [place], [address], 18:31:59 CMP, serum or plasma 2024 025 [facility], [address] [facility], [facility] 1, [place], [address], 11:49:23 lipid panel, blood 2024 025 [facility], [address] [facility], [address], [place], [address], 11:49:25 CBC 2024 025 [facility], [address], [address], [place], [address], 11:29:16 lipase, serum or plasma 2024 025 [employer] [facility], [address] [place] [address] 248, [address], [place], [address], 18:31:59 amylase, serum or plasma 2024 025 [employer] [facility], [address] [place] [address], [address], [place], [address], 18:31:59 CMP, serum or plasma 2024 025 [facility], [address], [address], [place], [address], 17:10:08 CBC 2024 025 [facility], [address], [address], [place], [address], 16:36:24 hemoglobin A1C/hemoglo bin total, QN, blood 2024 025 [facility], [address], [address], [place], [address], 16:42:18 Referral None recorded. Procedures None recorded. Surgeries None recorded. Imaging XR, kidney + ureter + bladder 2024 025 [email or web address] [facility], [address], [place], [address], 11:01:00 US, abdomen, limited 2024 [email or web address] 2 [facility], [address], [place], [address], 13:16:11 Medication Orders Miralax 17 gram/dose oral powder 2024 [facility] #71068, [address], [place], [place], [id number], 11:27:08 clotrimazol e-betametha sone 1 %-0.05 % topical cream 2024 [facility] #31396, [address], [place], [place], [id number], 10:58:38 cyclobenzap rine 10 mg tablet 2024 [facility] #51838, [address], [place], [place], [id number], 16:18:38 lisinopril 10 mg tablet 2024 [facility] #60449, [address], [place], [place], [id number], 16:19:03 atorvastati n 20 mg tablet 2024 [facility] #14191, [address], [place], [place], [id number], 16:17:37 glipizide ER 10 mg tablet, extended release 24 hr 2024 [facility] #61752, [address], [place], [place], [id number], 08:01:26 Victoza 3-Robin 0.6 mg/0.1 mL (18 mg/3 mL) subcutaneou s pen injector 2024 [facility] #73660, [address], [place], [place], [id number], 06:22:53 risperidone 1 mg tablet 2024 [facility] #35822, [address], [place], [place], [id number], 16:19:14 divalproex ER 500 mg tablet,exte nded release 24 hr 2024 [facility] #41230, [address], [place], [place], [id number], 16:13:55 omeprazole 40 mg capsule,del ayed release 2024 [facility]268, [address], [place], [place], [id number], 16:19:06 Patient TargetsNo targets recorded. Patient InstructionsNo instructions recorded. Reason for Referral None Reported. Results Created Date Observation Date Name Description Value Unit Range Abnormal Flag Note LastModifiedBy Organization Detail LastModifiedTime 04/27/1904/27/2024 CBC WBC 15.6 x10 4.5-10 .5 high Not Available [facility] [address] [facility] [address], [place], [address], 04/27/2024 16:36:23 04/27/1904/27/2024 CBC RBC 5.01 x10 4.30-5 .90 Not Available [facility] [address], [place], [address], 04/27/2024 16:36:23 04/27/1904/27/2024 CBC HGB 15.5 g/dL 13.5-1 8.0 Not Available [facility] [address] [facility] 1, [place], [address], 04/27/2024 16:36:23 04/27/19 25 04/27/2024 CBC HCT 45.6 % 35.0-6 0.0 Not Available [facility] [address] [facility] 1, [place], [address], 04/27/2024 16:36:23 04/27/19 25 04/27/2024 CBC MCV 91.0 fL 80.0-9 9.9 Not Available [facility] [address] [facility] 1, [place], [address], 04/27/2024 16:36:23 04/27/19 25 04/27/2024 CBC MCH 30.9 pg 27.0-3 2.0 Not Available [facility] [address] [facility] 1, [place], [address], 04/27/2024 16:36:23 04/27/19 25 04/27/2024 CBC MCHC 33.9 g/dL 32.0-3 6.0 Not Available [facility] [address] [facility] 1, [place], [address], 04/27/2024 16:36:23 04/27/19 25 04/27/2024 CBC RDW 13.4 % 11.5-1 4.5 Not Available [facility] [address] [facility] 1, [place], [address], 04/27/2024 16:36:23 04/27/19 25 04/27/2024 CBC plt 245.6 x10 150.0- 451.0 Not Available [facility] [address] [facility] 1, [place], [address], 04/27/2024 16:36:23 04/27/19 25 04/27/2024 CBC lymphocytes % 17.9 % 20.0-5 0.0 low Not Available [facility] [address] [facility] 1, [place], [address], 04/27/2024 16:36:23 04/27/19 25 04/27/2024 CBC granulcytes % 74.0 % 30.0-7 0.0 high Not Available [facility] [address] [facility] 1, [place], [address], 04/27/2024 16:36:23 04/27/19 25 04/27/2024 CBC monocytes % 6.4 % 2.0-16 .0 Not Available [facility] [address] [facility] 1, [place], [address], 04/27/2024 16:36:23 04/27/19 25 04/27/2024 CBC granulcytes# 11.5 x10 Not Samanta ilable [facility] [address] [facility] 1, [place], [address], 04/27/2024 16:36:23 04/27/19 25 04/27/2024 CBC lymphocytes # 2.8 x10 Not Available [facility] [address] [facility] 1, [place], [address], 04/27/2024 16:36:23 04/27/19 25 04/27/2024 CBC monocytes # 1.0 x10 Not Avai lable [facility] [address] [facility] 1, [place], [address], 04/27/2024 16:36:23 04/27/19 25 04/27/2024 HBA1C hemaglobin A1C 6.3 4.2-6. 5 Not Available [facility] [facility] [address] [facility] 1, [place], [address], 04/27/2024 16:42:18 04/27/19 25 04/27/2024 CMP (MALE ) glucose 93.0 mg/dL 60.0-9 9.0 Not Available [facility] [facility] [address] [facility] 1, [place], [address], 04/27/2024 17:10:08 04/27/19 25 04/27/2024 CMP (MALE ) BUN (blood urea nitrogen) 10.0 mg/dL 10.0-2 6.0 Not Available [facility] [facility] [address] [facility], [place], [address], 04/27/2024 17:10:08 04/27/19 25 04/27/2024 CMP (MALE ) creatinine (serum) 1.0 mg/dL 0.4-1. 5 Not Available [facility] [facility] [address] [facility], [place], [address], 04/27/2024 17:10:08 04/27/19 25 04/27/2024 CMP (MALE ) BUN/creatini ne ratio 10.00 ratio Not Available [facility] [facility] [address] [facility], [place], [address], 04/27/2024 17:10:08 04/27/19 25 04/27/2024 CMP (MALE ) eGFR calculated 89.4 Not Available [facility] [address] [facility], [place], [address], 04/27/2024 17:10:08 04/27/19 25 04/27/2024 CMP (MALE ) total protein 8.8 g/dL 6.0-8. 5 high Not Available [facility] [facility] [address] [facility] 1, [place], [address], 04/27/2024 17:10:08 04/27/19 25 04/27/2024 CMP (MALE ) total bilirubin 0.7 mg/dL 0.2-1. 3 Not Available [facility] [address] [facility] 1, [place], [address], 04/27/2024 17:10:08 04/27/19 25 04/27/2024 CMP (MALE ) albumin 5.1 g/dL 3.5-5. 5 Not Available [facility] [address] [facility], [place], [address], 04/27/2024 17:10:08 04/27/19 25 04/27/2024 CMP (MALE ) globulin 3.7 calc Not Available [facility] [address] [facility] 1, [place], [address], 04/27/2024 17:10:08 04/27/19 25 04/27/2024 CMP (MALE ) AST (SGOT) 31.0 U/L 0.0-46 .0 Not Available [facility] [address] [facility], [place], [address], 04/27/2024 17:10:08 04/27/19 25 04/27/2024 CMP (MALE ) altv (SGPT) 32.0 U/L 13.0-6 9.0 normal Not Available [facility] [address] [facility], [place], [address], 04/27/2024 17:10:08 04/27/19 25 04/27/2024 CMP (MALE ) A/G ratio 1.4 ratio Not Available [facility] [address] [facility], [place], [address], 04/27/2024 17:10:08 04/27/19 25 04/27/2024 CMP (MALE ) ALP phos 65.0 U/L 30.0-1 40.0 normal Not Available [facility] [address] [facility] 1, [place], [address], 04/27/2024 17:10:08 04/27/19 25 04/27/2024 CMP (MALE ) calcium 10.4 mg/dL 8.4-10 .5 Not Available [facility] [address] [facility] 1, [place], [address], 04/27/2024 17:10:08 04/27/19 25 04/27/2024 CMP (MALE ) sodium 140.0 mmol/ L 136.0- 145.0 Not Available [facility] [address] [facility] 1, [place], [address], 04/27/2024 17:10:08 04/27/19 25 04/27/2024 CMP (MALE ) potassium 4.4 mmol/ L 3.5-5. 1 Not Available [facility] [address] [facility] 1, [place], [address], 04/27/2024 17:10:08 04/27/19 25 04/27/2024 CMP (MALE ) chloride 99.0 mmol/ L 98.0-1 10.0 normal Not Available [facility] [address] [facility] 1, [place], [address], 04/27/2024 17:10:08 04/27/19 25 04/27/2024 CMP (MALE ) C02 32.0 mmol/ L 22.0-3 1.0 high Not Available [facility] [address] [facility] 1, [place], [address], 04/27/2024 17:10:08 04/27/19 25 04/27/2024 CMP (MALE ) anion gap 9.0 calc Not Available [facility] [address] [facility] 1, [place], [address], 04/27/2024 17:10:08 04/27/19 25 04/27/2024 CMP (MALE ) osmolality 288.0 calc Not Available [facility] [address] [facility] 1, [place], [address], 04/27/2024 17:10:08 12/13/1912/12/2024 CBC WBC 11.2 x10 4.5-10 .5 high Not Available [facility] [address] [facility] 1, [place], [address], 12/12/2024 11:29:16 12/13/1912/12/2024 CBC RBC 4.59 x10 4.30-5 .90 Not Available [facility] [address] [facility] 1, [place], [address], 12/12/2024 11:29:16 12/13/1912/12/2024 CBC HGB 14.2 g/dL 13.5-1 8.0 Not Available [facility] [address] [facility] 1, [place], [address], 12/12/2024 11:29:16 12/13/1912/12/2024 CBC HCT 43.2 % 35.0-6 0.0 Not Available [facility] [address] [facility] 1, [place], [address], 12/12/2024 11:29:16 12/13/1912/12/2024 CBC MCV 94.2 fL 80.0-9 9.9 Not Available [facility] [address] [facility] 1, [place], [address], 12/12/2024 11:29:16 12/13/1912/12/2024 CBC MCH 30.9 pg 27.0-3 2.0 Not Available [facility] [address] [facility] 1, [place], [address], 12/12/2024 11:29:16 12/13/1912/12/2024 CBC MCHC 32.9 g/dL 32.0-3 6.0 Not Available [facility] [address] [facility], [place], [address], 12/12/2024 11:29:16 12/13/1912/12/2024 CBC RDW 13.1 % 11.5-1 4.5 Not Available [facility] [facility] [address] [facility] 1, [place], [address], 12/12/2024 11:29:16 12/13/1912/12/2024 CBC plt 248.0 x10 150.0- 451.0 Not Available [facility] [address] [facility] 1, [place], [address], 12/12/2024 11:29:16 12/13/1912/12/2024 CBC lymphocytes % 22.4 % 20.0-5 0.0 Not Available [facility] [facility] [address] [facility] 1, [place], [address], 12/12/2024 11:29:16 12/13/1912/12/2024 CBC granulcytes % 68.7 % 30.0-7 0.0 Not Available [facility] [facility] [address] [facility] 1, [place], [address], 12/12/2024 11:29:16 12/13/1912/12/2024 CBC monocytes % 7.1 % 2.0-16 .0 Not Available [facility] [address] [facility] 1, [place], [address], 12/12/2024 11:29:16 12/13/1912/12/2024 CBC granulcytes# 7.7 x10 Not Samanta ilable [facility] [facility] [address] [address], [place], [address], 12/12/2024 11:29:16 12/13/19 25 12/12/2024 CBC lymphocytes # 2.5 x10 Not Available [facility] [facility] [address] [facility] 1, [place], [address], 12/12/2024 11:29:16 12/13/19 25 12/12/2024 CBC monocytes # 0.8 x10 Not Avai lable [facility] [facility] [address] [facility] 1, [place], [address], 12/12/2024 11:29:16 12/13/19 25 12/12/2024 CMP (MALE ) glucose 123.0 mg/dL 60.0-9 9.0 high Not Available [facility] [facility] [address] [address], [place], [address], 12/12/2024 11:49:23 12/13/19 25 12/12/2024 CMP (MALE ) BUN (blood urea nitrogen) 5.0 mg/dL 10.0-2 6.0 low Not Available [facility] [facility] [address] [facility] 1, [place], [address], 12/12/2024 11:49:23 12/13/19 25 12/12/2024 CMP (MALE ) creatinine (serum) 0.8 mg/dL 0.4-1. 5 Not Available [facility] [address] [address], [place], [address], 12/12/2024 11:49:23 12/13/19 25 12/12/2024 CMP (MALE ) BUN/creatini ne ratio 6.25 ratio Not Available [facility] [address] [facility] 1, [place], [address], 12/12/2024 11:49:23 12/13/19 25 12/12/2024 CMP (MALE ) eGFR calculated 115.0 Not Available [facility] [address] [address], [place], [address], 12/12/2024 11:49:23 12/13/19 25 12/12/2024 CMP (MALE ) total protein 8.0 g/dL 6.0-8. 5 Not Available [facility] [facility] [address] [facility], [place], [address], 12/12/2024 11:49:23 12/13/19 25 12/12/2024 CMP (MALE ) total bilirubin 0.6 mg/dL 0.2-1. 3 Not Available [facility] [facility] [address] [facility] 1, [place], [address], 12/12/2024 11:49:23 12/13/1912/12/2024 CMP (MALE ) albumin 4.8 g/dL 3.5-5. 5 Not Available [facility] [facility] [address] [facility] 1, [place], [address], 12/12/2024 11:49:23 12/13/1912/12/2024 CMP (MALE ) globulin 3.2 calc Not Available [facility] [address] [facility] 1, [place], [address], 12/12/2024 11:49:23 12/13/1912/12/2024 CMP (MALE ) AST (SGOT) 33.0 U/L 0.0-46 .0 Not Available [facility] [facility] [address] [facility] 1, [place], [address], 12/12/2024 11:49:23 12/13/1912/12/2024 CMP (MALE ) altv (SGPT) 27.0 U/L 13.0-6 9.0 normal Not Available [facility] [facility] [address] [facility], [place], [address], 12/12/2024 11:49:23 12/13/19 25 12/12/2024 CMP (MALE ) A/G ratio 1.5 ratio Not Available [facility] [address] [facility] 1, [place], [address], 12/12/2024 11:49:23 12/13/1912/12/2024 CMP (MALE ) ALP phos 64.0 U/L 30.0-1 40.0 normal Not Available [facility] [address] [facility], [place], [address], 12/12/2024 11:49:23 12/13/1912/12/2024 CMP (MALE ) calcium 9.7 mg/dL 8.4-10 .5 Not Available [facility] [address] [facility], [place], [address], 12/12/2024 11:49:23 12/13/1912/12/2024 CMP (MALE ) sodium 140.0 mmol/ L 136.0- 145.0 Not Available [facility] [address] [facility] 1, [place], [address], 12/12/2024 11:49:23 12/13/19 25 12/12/2024 CMP (MALE ) potassium 3.8 mmol/ L 3.5-5. 1 Not Available [facility] [address] [facility] 1, [place], [address], 12/12/2024 11:49:23 12/13/1912/12/2024 CMP (MALE ) chloride 103.0 mmol/ L 98.0-1 10.0 normal Not Available [facility] [address] [facility] 1, [place], [address], 12/12/2024 11:49:23 12/13/19 25 12/12/2024 CMP (MALE ) C02 30.0 mmol/ L 22.0-3 1.0 Not Available [facility] [address] [facility] 1, [place], [address], 12/12/2024 11:49:23 12/13/1912/12/2024 CMP (MALE ) anion gap 7.0 calc Not Available [facility] [address] [facility], [place], [address], 12/12/2024 11:49:23 12/13/1912/12/2024 CMP (MALE ) osmolality 287.8 calc Not Available [facility] [facility] [address] [facility] 1, [place], [address], 12/12/2024 11:49:23 12/13/1912/12/2024 LIPID PROFI LE (MALE ) cholesterol 168.0 mg/dL 0.0-20 0.0 Not Available [facility] [facility] [address] [facility], [place], [address], 12/12/2024 11:49:25 12/13/19 25 12/12/2024 LIPID PROFI LE (MALE ) trig 48.0 mg/dL 0.0-15 0.0 Not Available [facility] [facility] [address] [facility], [place], [address], 12/12/2024 11:49:25 12/13/19 25 12/12/2024 LIPID PROFI LE (MALE ) HDL - direct 40.0 mg/dL >40.0 Not Available [facility] [address] [facility] 1, [place], [address], 12/12/2024 11:49:25 12/13/1912/12/2024 LIPID PROFI LE (MALE ) VLDL - direct 9.6 mg/dL Not Available [facility] [facility] [address] [facility] [address] [facility] 1, [place], [address], 12/12/2024 11:49:25 12/13/1912/12/2024 LIPID PROFI SERGIO (MALE ) LDL - direct 118.4 mg/dL 0.0-13 0.0 Not Available [facility] [address] [facility] 1, [place], [address], 12/12/2024 11:49:25 12/13/19 25 12/13/2024 HEPAT ITIS PANEL , ACUTE W/REF MITALI TO CONFI RMATI ON hepatitis A IgM NON-RE ACTIVE non-re active normal For addit ional infor issa multani e refer to http: //[facility] jeremiah medina.que stdia gnost ics.c om/fa q/FAQ 202 (This link is being provi ded for infor matio nal/ educa keysha l purpo ses only. ) Not Available [employer] [address], [address], 12/13/2024 18:31:58 12/13/1912/13/2024 HEPAT ITIS PANEL , ACUTE W/REF MITALI TO CONFI RMATI ON hepatitis B surface antigen NON-RE ACTIVE non-re active normal For addit ional issa hollingsworth e refer to http: //[employer] jeremiah medina.que stdia gnost ics.c om/fa q/FAQ 202 (This link is being provi ded for infor matio nal/ educa keysha l purpo ses only. ) Not Available [employer] [address], [address], 12/13/2024 18:31:58 12/13/1912/13/2024 HEPAT ITIS PANEL , ACUTE W/REF MITALI TO CONFI RMATI ON hepatitis B core antibody (IgM) NON-RE ACTIVE non-re active normal For addit ional issa hollingsworth e refer to http: //[facility] jeremiah medina.que stdia gnost ics.c om/fa q/FAQ 202 (This link is being provi ded for infor matio nal/ educa keysha l purpo ses only. ) Not Available [employer] [address], [address], 12/13/2024 18:31:58 12/13/1912/13/2024 HEPAT ITIS PANEL , [...] nt activ e infec tion. Not Available [facility] [address], [address], 12/13/2024 18:31:58 12/13/1912/13/2024 HCV RNA, QUANT ITATI VE REAL TIME PCR HCV RNA, quantitative real time PCR [id number] IU/mL not detect ed high Not Available [employer] [facility] [address], [address], 12/13/2024 18:31:58 12/13/1912/13/2024 HCV RNA, QUANT ITATI VE REAL TIME PCR HCV RNA, quantitative real time PCR 7.06 log_I U/mL not detect ed high HCV RNA was detec jessenia. This resul t provi varghese labor atory evide nce of a curre nt activ e HCV infec tion. Not Available [employer] [facility] [address] [place], [address], 12/13/2024 18:31:58 12/13/1912/13/2024 HCV RNA, QUANT ITATI VE REAL TIME PCR comment For more infor rhonda medina on this test, go to: http: //phil whatleyque stdia gnost ics.c om/fa q/FAQ 22v1 (This link is being provi ded for infor rhonda mathis/ macy chopra l purpo ses only. ) This assay is inten ded for use as an aid in the diagn osis of HCV infec tion and the manag ement of HCV infec jessenia patie nts under going anti- viral thera py. Not Available [employer] [facility] - [address], [address], 12/13/2024 18:31:58 12/13/19 25 12/13/2024 AMYLA SE amylase 31 U/L 21-101 normal Not Available [address], [address], 12/13/2024 18:31:59 12/13/19 25 12/13/2024 LIPAS E lipase 37 U/L 7-60 normal Not Available [address], [address], 12/13/2024 18:31:59 12/13/1912/13/2024 CHLAM YDIA/ N. GONOR RHOEA E RNA, TMA, UROGE NITAL chlamydia trachomatis RNA, tma, urogenital NOT DETECT ED not detect ed normal Not Available [address], [address], 12/13/2024 18:31:59 12/13/19 25 12/13/2024 CHLAM YDIA/ N. GONOR RHOEA E RNA, TMA, UROGE NITAL neisseria gonorrhoeae RNA, tma, urogenital NOT DETECT ED not detect ed normal Not Available [address], [address], 12/13/2024 18:31:59 12/13/1912/13/2024 CHLAM YDIA/ N. GONOR RHOEA E RNA, [...] ses. For addit ional infor issa multani e refer to https ://ed ucati on.qu estdi arlette ZetrOZs. com/f aq/FA Q154 (This link is being provi ded for infor rhonda medina/ macy barry purpo ses only. ) Not Available [employer] [facility] [id number] , [place], [address], 12/13/2024 18:31:59 12/14/1912/12/2024 XR, kidne y + urete r + bladd er No observ ation record ed. [facility] [address] [place], [address], 12/13/2024 14:42:44 Result Notes None recorded. Problems Name Problem SNOMED Code Status Onset Date Resolution Date Notes Provider Name and Address Organization Details Recorded Time Type 2 diabetes mellitus 62551561 Active 2024 CANDE MORALES [facility] 5 17:03:05 Bipolar disorder 96687141 Active 2024 CANDE MORALES [facility] 5 17:24:47 Chronic low back pain 864675932 Active 2024 CANDE YUSUFBHAVNA [facility] 5 17:25:03 Gastroesophage al reflux disease 363518745 Active 2024 CANDE YUSUFBHAVNA [facility] 17:25:13 Problem Notes None recorded. Medical Equipment [...] Available Not Available Vitals Date Recorded Body weight Body mass index (BMI) Body height Oxygen saturation Heart rate Respiratory rate Body temperature Systolic And Diastolic Provider Name and Address Organization Details Last Updated DateTime 5 78484.4 g 30.5 kg/m2 165.1 cm 98 % 72 /min 18 /min 98 [degF] 136/80 mm[Hg] [facility] 5 15:42:43 Date Recorded Body height Body mass index (BMI) Body weight Oxygen saturation Heart rate Respiratory rate Body temperature Systolic And Diastolic Provider Name and Address Organization Details Last Updated DateTime 5 165.1 cm 27.5 kg/m2 55284.7 4 g 97 % 76 /min 18 /min 97.9 [degF] 140/80 mm[Hg] [facility] 5 10:08:57 Social History None recorded. Functional Status None recorded. Mental Status None recorded. Family History Nothing Reported. Medical History No medical history recorded. Immunizations Vaccine Type Date Status Note Provider Nam e and Address Organization Details Recorded Time COVID-19, mRNA, LNP-S, PF, 100 mcg/0.5mL dose or 50 mcg/0.25mL dose 04/02/2020 completed [facility] Available [facility] 08[facility]:50 COVID-19, mRNA, LNP-S, PF, 100 mcg/0.5mL dose or 50 mcg/0.25mL dose 04/30/2020 completed Not Available [facility] 5 08:34:50 Influenza, split virus, quadrivalent, PF 12/25/2020 completed Not Available [facility] 08[facility] Td (adult) 08/16/2021 completed Not Available [facility] 12/12/2024 08:34:50 Influenza, split virus, quadrivalent, PF 01/08/2022 completed Not Available [facility] 08:34:50 Influenza, split virus, quadrivalent, PF 06/07/2024 [facility] Past Encounters Encounter ID Performer Location Encounter Start Date Encounter Closed Date Diagnosis/Indication Diagnosis SNOMED-CT Code Diagnosis ICD10 Code Diagnosis IMO Codes Diagnosis Note [id number] OFELIA CONN PA-C [facility] ([facility]) [address] [place] [address] 04/27/2024 14:55:25 04/28/2024 11:34:30 Type 2 diabetes mellitus 13897823 E11.9 after seening his A1C I do not think he needs the Glipizide. Will d/c it and just do the Victoza. Bipolar I disorder 87399 6008 F31.9 Chronic low back pain 27 6959486 M54.50 Gastroesop hageal reflux disease 040253416 K21.9 [id number] OFELIA CONN PA-C [facility] ([facility]) [address] [place] [address] 12/12/2024 08:28:39 12/15/2024 17:51:31 Acute pancreatitis 013374088 K85.80 [id number] positive lipase on 12.02 but normal yesterday. 12/11 with normal lfts.told him that I would not give him pain meds Gastroesop hageal reflux disease 889684369 K21.9 [id number] Acute constipation 04623 9006 K59.00 558337 History of hepatitis C 8568289815 9101 Z86.19 345296 Sexual beh avior with high risk of exposure to communicable disease 3266610999 Z72.51 Z20.9 [id number] Irritant c ontact dermatitis caused by detergent 5148583667 1285524 L24.0 [id number] Health Concerns Section Related Observation LastModified by Organization Detai ls LastModified Time None Recorded Concern Status LastModified by Organization Details LastModified Time None Recorded Advance Directives Directive None Recorded Payers Insurance Date Sequence Insurance Name Policy Number Policy Cevallos Covered Member ID Cevallos Member ID Guarantor Name 02/24/2025 2 [facility] [place] [id number] Hua [place] 02/24/2025 1 [facility] - [place]CH[place] PLAN - [place] NITHYA Cifuentesera [id number] Hua [place] 04/27/2024 2 *SELF PAY* Duy [place] 12/12/2024 2 [facility] (HMO) [place]YA [place] [id number] [place] 02/18/2025 [place] Cifuentesera [id number] Hua [place] 02/18/2025 [place] [facility] [place] [id number] Hua [place] Notes Date Note Type Note Provider Name and Address Organization Details Recorded Time 5 text/html DiabetesReported by PatientHPIFor review finger sticks, patient reportsfasting: ___andpost breakfast: 261. For duration, patient reportschronic. For control, patient reportstreated with insulin,hemoglobin a1c has been less than 7, andhemoglobin a1c goal is less than 6.5. For self care, patient reportsmonitoring glucose 2 times per day. For associated symptoms, patient reportsno weight gain,no weight loss,no dizziness,no sweats,no headaches,no confusion,no increased thirst,no increased appetite,no increased urination,no blurred vision,no numbness of feet,no calluses on feet,no fatigue,no blurred vision, andno paresthesias. [place] BipolarReported by PatientManiaFor patient endorses, patient reportsno significant symptoms of [place],no euphoria,no extreme optimism,no grandiosity,normal physical activity,no decreased need for sleep, andno impulsivity.Pt is stable on current meds. Not taking everything on his med list but states he is on the depakote and risperidolROS as noted in the HPI ESTABLISH WITH [facility] FOLLOW UP NOV, BIPOLAR AND LOTS OF OTHER THINGS, HAVE BEEN OUT OF ALL MEDS FOR A WHILE , NEEDS A1C, AND REFILLS, WOULD LIKE A NEW GLUCOMETER WITH SUPPLIES depakote and rispiradol OFELIA CONN PA-C [address] [place] [address], [phone], [facility] 05/02/2024 09:56:11 5 text/html Abdominal PainReported by PatientAbdominal PainFor [...] c says he was dx at [facility] 3 years ago. Pt has had multiple [...] wanted him to stop. OFELIA CONN PA-C [address] [place], [address], [facility] 12/15/2024 16:36:59"
--- NOTE | 2025-03-01 16:06 | XRR_ITS ---
PROCEDURE INFORMATION: Exam: XR Left Humerus Exam date and time: 03/01/2025 4:05 PM Age: 39 years old Clinical indication: Injury or trauma; Other: Not specified; Blunt trauma (contusions or hematomas); Arm, upper; Left TECHNIQUE: Imaging protocol: Radiologic exam of the left humerus. Views: 2 or more views. COMPARISON: CR XR chest 1V portable [id number] 12/02/2024 9:01 AM FINDINGS: Bones/joints: Normal. Soft tissues: Normal. XR/[place] [id number] IMPRESSION: No acute findings.
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
[2025-03-01 16:29] VITALS: BP 132/81; PULSE 60; O2SAT 98
== END 2025-03-01 16:30 | disposition home or self-care (01) ==
PROVIDERS: Emergency Provider Family Medicine; PCP Family Medicine
DX: S40.022A Contusion of left upper arm, initial encounter (principal); F17.210 Nicotine dependence, cigarettes, uncomplicated; F17.220 Nicotine dependence, chewing tobacco, uncomplicated; E78.5 Hyperlipidemia, unspecified; E11.9 Type 2 diabetes mellitus without complications; Y04.2XXA Assault by strike against or bumped into by another person, initial encounter
CPT/HCPCS: 73060; 99283